=== PATIENT | female | born 1970 | race Caucasian/White ===

== ENCOUNTER → 2017-01-30 | Day surgery (SDC) | payer OTHER ==
[2017-01-30 11:53] VITALS: RESP 16; BMI 31.4
[2017-01-30 13:41] VITALS: BP 115/79; PULSE 76; TEMP 98
--- NOTE | 2017-01-30 14:08 | USB ---
EXAMINATION TYPE: US biopsy breast add'l VAD RT, US biopsy breast VAD RT, MG diagnostic mammo RT wo C AD DATE OF EXAM: 01/30/2017 CLINICAL HISTORY: R92.8 ABNORMAL MAMMOGRAM. TECHNIQUE: Two site ultrasound guided core biopsy of right breast. COMPARISON: Outside breast examination dated 09/19/2016 FINDINGS: Preprocedural imaging was performed as outside images were brought the day of the examination. At the 10:00 position there is a hypoechoic, complex mass measuring 1.6 x 1.4 x 1.8 cm corresponding to the previous abnormality seen at the outside institution. Biopsy was subsequently performed of this mass . (Site A) Additionally, approximately 1.3 cm from the index mass a second 1.6 x 1.0 x 1.0 cm similar appearing hypoechoic complex mass is identified. Recommendations for this mass will be based on the biopsy of t he first mass. Additionally at the 10:00 position, closer to the nipple there is a hypoechoic irregular mass contain ing microcalcifications measuring 1.0 x 0.9 x 1.0 cm. Decision was made to perform an additional biop sy of this mass on 01/30/2017. (Site B) PROCEDURE: The procedure of ultrasound guided core biopsy was explained to the patient. Benefits, al ternatives, and risks were discussed. An informed consent was then obtained. (Site A) The patient was placed in supine positioning for imaging and for the procedure. The overlyi ng skin was prepped and draped in usual sterile fashion. 20 cc of lidocaine was used as anesthetic in to the skin and subcutaneous tissue up to area of concern in the right breast. Under ultrasound guid ance, a 12-gauge vacuum assisted biopsy gun device was used to obtain 4 core samples, as the patient could only tolerate for samples. Following this, a coil biopsy clip was left in lesion. (Site B) The patient was placed in supine positioning for imaging and for the procedure. The overlyi ng skin was prepped and draped in usual sterile fashion. 7 cc of lidocaine was used as anesthetic int o the skin and subcutaneous tissue up to area of concern in the right breast. Under ultrasound rachna nce, a 12-gauge vacuum assisted biopsy gun device was used to obtain 6 core samples. Following this, a ribbon biopsy clip was left in lesion. The patient tolerated the procedure well without any immediate complication. The patient was kept in the radiology department for short stay after the procedure and then discharged home in stable condi tion. Postprocedure mammogram was obtained demonstrating the biopsy markers appropriately placed, without m igration. The coil marker is noted to be adjacent to the mammographic mass on them view, just superio r, but within the mass on the CC view. IMPRESSION: 1. Successful, uncomplicated two site ultrasound guided core biopsy of area of concern in the right b reast, full pathology results to follow. 2. Recommendation for a third mass will be made based on the results of the above biopsies. This mass is noted to be 1.3 cm from site A.
== END ==
LOC: RADUSWWP 11:29
PROVIDERS: ATTEND Surgery
DX: D05.11 Intraductal carcinoma in situ of right breast (principal); C50.911 Malignant neoplasm of unspecified site of right female breast; R92.0 Mammographic microcalcification found on diagnostic imaging of breast
CPT/HCPCS: 19084; 88305; 88341; 88342

== ENCOUNTER → 2017-02-08 | Outpatient (CLI) | payer OTHER ==
--- NOTE | 2017-02-08 10:29 | P.OP ---
Date of Procedure: 02/08/17 Preoperative Diagnosis: Postoperative Diagnosis: Procedure(s) Performed: Colonoscopy without bx Implants: Anesthesia: MAC Pathology: none sent Condition: stable Disposition: PACU Indications for Procedure: Operative Findings: Description of Procedure:
--- NOTE | 2017-02-25 08:20 | BMR ---
EXAMINATION TYPE: MR breast BILAT wo/w con DATE OF EXAM: 02/08/2017 HISTORY: Newly diagnosed right-sided breast cancer. CONTRAST: Multiplanar, multisequence images of the breasts were acquired utilizing 7.5 mL intravenous Gadavist gadolinium contrast. TECHNIQUE: A series of fat and water weighted images in the long and short axis views of both breasts are obtained in conjunction with dynamic contrast MRI with subtraction technique. Three-dimensional and additional postprocessing imaging is created on independent workstation and reviewed during offi cial interpretation of this study. Second opinion was provided by [facility] through [facility] dedicated MRI breast radiologist. 3-D postprocessing was also performed at outside institution and reviewed by thi s person. REFERENCE: Outside bilateral diagnostic breast mammogram September 19, 2016 BI-RADS 0. Outside diagnostic right breast ultrasound September 19, 2016 BI-RADS 4. Ultrasound-guided core biopsy January 30, 2017 FINDINGS: There is heterogeneously dense fibroglandular tissue redemonstrated throughout both breasts . There are innumerable simple appearing cysts scattered throughout both breasts with at least 30 dis tinct cysts present bilaterally. For reference one of the larger cysts in the posterior slightly infe rior lateral aspect of the right breast measures 1.2 x 1.1 cm on image 19 series 301. There is marked fairly symmetric background enhancement making evaluation suboptimal. There is artifa ct from biopsy clip upper outer aspect of right breast seen on image 73 series 601 believed to be cor responding to the more posterior outer clip and lesion. At this level 11:00 position there is 2.0 x 1 .0 by 2.1 cm enhancing lesion with predominantly rapid uptake and washout 9.4 cm distance from nipple corresponding with one of the biopsy-proven neoplasm. Anterior to this artifact from second clip is less well visualized. There is second lesion however id entified 1.2 cm anterior and superior to this on image 28 series 301 near the 12:00 position which be lieves corresponds to ultrasound images. This second lesion measures 2.2 x 1.3 by 1.9 cm and is appro ximately 6 cm from the nipple with heterogeneous postcontrast enhancement and washout. Anterior to the 11:00 position mass, there is an additional irregular mass measuring 2.1 x 1.4 cm als o seen in image number 62. There is a fourth smaller suspicious enhancing 1.1 x 0.8 x 1.0 cm lesion with rim enhancement mediall y 4:00 position anterior to middle depth of right breast at level of nipple with distance from nipple measuring 2.5 cm that warrants follow-up. There is fast initial enhancement by washout making lesion s suspicious. Regarding the left breast: At the 12:00 to 1:00 position, 4-5 cm from the nipple, there is an oval ma ss with noncircumscribed margins measuring 1.1 x 0.8 x 1.4 cm. Internal enhancement is heterogeneous. Kinetic assessment demonstrates fast initial enhancement followed by washout in the delayed portions of the curve. Scattered foci of enhancement are present bilaterally measuring under 5 mm. The chest wall is intact. No suspicious axillary or intramammary adenopathy is seen. No abnormal skin thickening is noted. Incidental note is made of small to moderate size hiatal hernia. IMPRESSION: Four masses are seen in the right breast. 2 of them associated with marker clips, histology unknown. All four masses are suspicious. Mass in the left breast is suspicious. Innumerable bilateral cysts, benign. No lymphadenopathy. Recommendations: Multifocal, Multicentric neoplasm right breast suspected as detailed above. Suspicio us lesion left breast BI-RADS category 6 right breast. Biopsy-proven malignancy. BI-RADS category 4 left breast. Suspicious lesion. Two masses in the right breast are biopsy proven malignancy at the 11:00 and 12:00 position and corre late to the sites recently biopsied. There is an intervening mass between the two known to be maligna nt that is highly suspicious for additional site of disease. The fourth mass in the right breast at the 4:00 position is suspicious and biopsy should be considere d if will change treatment. An MR directed breast US to plan for biopsy can be performed and if mass is not seen by US, then an MR guided biopsy is recommended. This additional biopsy can be considered if it would change surgical management. In the left breast there is a suspicious mass at the 12:00-1:00 position. An MR directed breast US to plan for biopsy can be performed and if mass is not seen by US, then an MR guided biopsy would be ad vised.
== END | disposition home or self-care (01) ==
LOC: RADMRIMAIN 16:24
PROVIDERS: ATTEND Surgery
DX: C50.911 Malignant neoplasm of unspecified site of right female breast (principal)
CPT/HCPCS: 0159T; C8908; A9581; 77059

== ENCOUNTER → 2017-02-26 | Day surgery (SDC) | payer OTHER ==
[2017-02-26 12:05] VITALS: BP 118/83; PULSE 76; RESP 16; TEMP 98; BMI 30.9
--- NOTE | 2017-02-26 13:44 | USB ---
EXAMINATION TYPE: US discontinued breast bx LT DATE OF EXAM: 02/26/2017 HISTORY: Biopsy-proven Right breast carcinoma scheduled for right-sided mastoidectomy. Abnormal MRI d ated 02/08/2017 with suspicious lesion left breast 12:00 position 4 to 5 cm from the nipple. Comparison: MRI 02/08/2017, diagnostic mammography 01/30/2017 The region in question within the left breast was evaluated sonographically. Multiple cysts are noted some of which contain internal echoes. I cannot state with certainty which lesion reflects the suspi cious MRI finding. Therefore biopsy was discontinued. It is recommended that the lesion in question b e sampled with MRI guidance. This was discussed with the patient. IMPRESSION: 1. Suspicious BI-RADS 4 Recommendation: MR guided biopsy of suspicious left breast lesion.
== END ==
LOC: RADUSWWP 11:34
PROVIDERS: ATTEND Surgery
DX: R92.8 Other abnormal and inconclusive findings on diagnostic imaging of breast (principal); C50.411 Malignant neoplasm of upper-outer quadrant of right female breast

== ENCOUNTER → 2017-03-19 | Day surgery (SDC) | payer OTHER ==
[~2017-03-19] MED LIST: ALPRAZolam 0.5 MG TAB PO ONE; HYDROmorphone 0.5 MG/0.5 ML SYRINGE IVP PRN; HYDROmorphone 1 MG/ML 1 ML SYRINGE IM STA; HYDROmorphone 1 MG/ML 1 ML SYRINGE IVP STA
[2017-03-19 10:46] VITALS: RESP 16; TEMP 97.7
[2017-03-19 13:45] VITALS: BP 133/77; PULSE 82
--- NOTE | 2017-03-19 15:19 | BMR ---
EXAMINATION TYPE: MR breast biopsy w/vad LEFT, MG diagnostic mammo LT wo CAD DATE OF EXAM: 03/19/2017 CLINICAL HISTORY: C50.411 breast ca rt breast. Abnormal MRI, suspicious lesions left breast TECHNIQUE: MRI guided core biopsy of left breast at 2 sites with clip placement and follow-up diagnostic left breast mammogram. COMPARISON: MRI bilateral breasts February 08, 2017 FINDINGS: The procedure of MRI guided core biopsy was explained to the patient. Benefits, alternatives, and risks were discussed. An informed consent was then obtained. The patient was placed in prone positioning for imaging and for the procedure. Preprocedure MRI redemonstrates 2 areas of concern, near 12 to 1:00 position and oval 1.0 cm heterogeneous enhancing lesion. There is more irregular posterior area of nonmass enhancement redemonstrated. The overlying skin was prepped and draped in usual sterile fashion. Lidocaine with epinephrine was used as anesthetic into the skin and subcutaneous tissue up to area of concern in the left breast. Under MRI guidance, a 12-gauge vacuum assisted biopsy gun device was used to obtain 4 core samples applesauce right. Following this, a biopsy clip was left in lesion at both sites. The patient tolerated the procedure well without any immediate complication. The patient was kept in the radiology department for short stay after the procedure and then discharged home in stable condition. Postprocedure mammogram shows successful deployment of both clips. IMPRESSION: Successful, uncomplicated MRI guided core biopsy of 2 areas of concern in the left breast, full pathology results to follow. Intermediate index of suspicion noted at time of procedure. Pathology Results: High Risk A. BREAST, LEFT, SITE A ANTERIOR, CORE BIOPSY: INTRADUCTAL PAPILLOMA. BACKGROUND FIBROCYSTIC CHANGES INCLUDING CYSTS, FIBROSIS AND APOCRINE METAPLASIA. B. BREAST, LEFT, SITE B POSTERIOR, CORE BIOPSY: FIBROCYSTIC CHANGES INCLUDING FIBROSIS AND CYSTS. Recommendation Surgical consult of the left breast. (definitive surgical management of the known right DCIS/IDC and papilloma on left breast) [facility]
== END ==
LOC: RADMRIMAIN 10:00
PROVIDERS: ATTEND Surgery
DX: D24.2 Benign neoplasm of left breast (principal); C50.411 Malignant neoplasm of upper-outer quadrant of right female breast; N60.32 Fibrosclerosis of left breast; N60.82 Other benign mammary dysplasias of left breast; R92.8 Other abnormal and inconclusive findings on diagnostic imaging of breast
CPT/HCPCS: 88305; 96374; 19085; 19086; G0206; A4648; J1170; 0159T

== ENCOUNTER 2017-04-16 07:48 | Observation (INO) | payer OTHER ==
[2017-04-11 13:28] VITALS: BMI 30.7
[~2017-04-16 07:48] MED LIST changes: -ALPRAZolam 0.5 MG TAB PO ONE; +DEXAMETHASONE SOD PHOSPHATE 10 MG/ML 1 ML VIAL IV ONE; +HEPARIN SODIUM,PORCINE 5,000 UNIT/ML 1 ML VIAL SQ ONE; -HYDROmorphone 0.5 MG/0.5 ML SYRINGE IVP PRN; -HYDROmorphone 1 MG/ML 1 ML SYRINGE IM STA; -HYDROmorphone 1 MG/ML 1 ML SYRINGE IVP STA; +LIDOCAINE 1% 20 ML VIAL (10MG/ML) FOR IV START INTRADERMA PRN; +ONDANSETRON 4 MG/2 ML VIAL IVP ONE; +Pre Op ABX Message 1 EACH MISC MISCELLANE ONE; +SCOPOLAMINE 1.5MG/72HR PATCH TRANSDERM ONE
--- NOTE | 2017-04-16 07:51 | P.GSHP ---
History of Present Illness H&P Date: 04/16/17 Chief Complaint: Right breast cancer 46yr old premenopausal female presents with nodule / lump in right breast- intermittent pain and swelling . 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 ER+ SC+ her2 janae equivocal by IHC and FISH . Additional lesion identified on breast US which was not biopsied . MRI done - suspicous lesion left breast. S /P MRI guided bx - intraductal papilloma BRCA genetic testing was negative No, nipple discharge, breast distortion. No swellings in the armpit or neck Last mammogram on 09/2016 Last breast US on 09/2016- complex cyst at 10 o clock , BIRAD 4 Prior breast bx - none Menarche at age -15 Age at [address] child -20 Hormonal supplementation-None Family history of breast cancer - None Family history of ovarian cancer -None ROS Additionally reports: Constitutional: No fever, chills or rigors. No weight loss or loss of appetite. HEENT: No difficulty with hearing, vision and swallowing. Lymphatic: No axillary, inguinal and cervical swellings. Endocrine: No thyroid disorders. Denies history of diabetes. Respiratory: No chest pain, shortness of breath, and cough. No hemoptysis. Cardiovascular: No palpitations, irregular HR Gastrointestinal: Denies heartburn. No change in bowel habits. No nausea or vomiting. Genitourinary: No increase in urinary frequency or urgency. No hematuria. Musculoskeletal: No back pain, joint stiffness or pain. Neurologic: No history of seizure disorder and headaches. Psychiatric: Denies depression or anxiety . No suicidal ideation. Hematologic: Denies any abnormal mucosal bleeding or easy bruising. Physical Exam Patient is a 46-year-old female. Breast: Inspection/Palpation: no erythema, tenderness, skin changes, or abnormal secretions and normal nipple appearance, non tender axillary lymph nodes, and mass in the right breast (illdefined 4 cm mass right breast at 9- 10 o clock). Abdomen: Auscultation/Inspection/Palpation: soft, non-distended, normal bowel sounds, and no tenderness. Lungs: Respiratory effort: no dyspnea. Auscultation: breath sounds normal. Cardiovascular: Heart Auscultation: normal S1 and S2 and RRR. Assessment / Plan 1. Right breast cancer - 10: 00 clock 4 cm -illdefined mass 2. Multifocal breast cancer - Right simple mastectomy with reconstruction 3.Right sentinel lymph node bx with blue dye and radioactive tracer with possibility of axillary lymph node dissection if sentinel lymph node is positive for malignancy . Multiple left breast cysts and intraductal papilloma. Needs open biopsy .Patient chose to have bilateral mastectomy with sentinel lymph node bx and possible ALND . The risks, benefits and potential complications discussed including bleeding, infection, sensory impairment along inner arm, lymphedema 4.Medical Oncology consult - Dr Mixon . Repeat Her2 janae on final breast pathology. No indication for neoadjuvant chemotherapy. 5. Plastic surgery consultation with Dr. Reid for immediate reconstruction bilateral breasts 6. MRI B/L breasts reviewed 7. Smoking cessation counselling>3 min. Continues to smoke daily. Higher risk of wound infection, poor wound healing discussed with patient 8. Ancef [id number] 9. Heparin 5000Units SQx1 10. Bilateral SCDs 1. Abnormal findings on diagnostic imaging of breast R92.8: Other abnormal and inconclusive findings on diagnostic imaging of breast 2. Nicotine dependence F17.200: Nicotine dependence, unspecified, uncomplicated STOPPING SMOKING: CARE INSTRUCTIONS 3. Primary malignant neoplasm of upper outer quadrant of female breast C50.411: Malignant neoplasm of upper-outer quadrant of right female breast Past Medical History Past Medical History: Cancer, GERD/Reflux Additional Past Medical History / Comment(s): MIGRAINES, CHRONIC BRONCHITIS, HARRIS BREAST CANCER. History of Any Multi-Drug Resistant Organisms: None Reported Past Surgical History: Breast Surgery Additional Past Surgical History / Comment(s): HARRIS BREAST BX. Past Anesthesia/Blood Transfusion Reactions: No Reported Reaction Additional Past Anesthesia/Blood Transfusion Reaction / Comment(s): NEVER RECEIVED ANESTHESIA. Smoking Status: Current every day smoker - Past Family History Father Family Medical History: Cancer Additional Family Medical History / Comment(s): lung, brain cancer Medications and Allergies Home Medications Medication Instructions Recorded Confirmed Type Albuterol Inhaler [Ventolin Hfa 1 - 2 puff INHALATION Q6HR PRN 02/26/17 History Inhaler] SUMAtriptan SUCCINATE [Imitrex] 25 mg PO DAILY PRN 02/26/17 04/11/17 History Cyclobenzaprine [Flexeril] 5 mg PO BID PRN 04/05/17 04/11/17 History Allergies Allergy/AdvReac Type Severity Reaction Status Date / Time No Known Allergies Allergy Verified 04/11/17 13:23
[2017-04-16] MEDS ORDERED: ALPRAZolam 0.5 MG TAB PO ONE (08:28)
[2017-04-16] MEDS: LACTATED RINGERS 1,000 ML IV SCH ×2 (08:29→20:24)
[2017-04-16] MEDS ORDERED: ceFAZolin 2,000 MG in DEXTROSE/WATER 1 50ML.BAG IVPB STA (10:15)
[2017-04-16] MEDS ORDERED: ceFAZolin IN SWFI 2 GM/20 ML SYRINGE IVP STA (10:16)
[2017-04-16] MEDS ORDERED: PROPOFOL 10 MG/ML 20 ML VIAL IV ONE (10:27)
[2017-04-16] MEDS ORDERED: MIDAZOLAM 2 MG/2 ML VIAL ONE (10:27)
[2017-04-16] MEDS ORDERED: ONDANSETRON 4 MG/2 ML VIAL ONE (10:27)
[2017-04-16] MEDS ORDERED: fentaNYL (PF) 50 MCG/ML 2 ML AMP ONE (10:27)
[2017-04-16] MEDS ORDERED: LIDOCAINE 1% INJ 10MG/ML (20 ML MDV) ONE (10:27)
[2017-04-16] MEDS ORDERED: SUCCINYLCHOLINE CHLORIDE 100 MG/5 ML SYR IV ONE (10:27)
[2017-04-16] MEDS ORDERED: ePHEDrine SULFATE/0.9% NACL/PF 50 MG/5 ML SYRINGE IV ONE (10:27)
[2017-04-16] MEDS ORDERED: METHYLENE BLUE 10 MG/ML (10 ML VIAL) INJ ONE (10:51)
--- NOTE | 2017-04-16 12:19 | NM ---
EXAMINATION TYPE: NM sentinel node injection DATE OF EXAM: 04/16/2017 COMPARISON: NONE HISTORY: Abnormal core biopsy left breast. Malignancy within right breast. TECHNIQUE AND FINDINGS: The procedure for bilateral sentinel node injection was confirmed with the carlos rgeon by Dr. Edge by telephone prior to the procedure. The procedure of sentinel lymph node injec tion was explained to the patient. The benefits, alternatives, and risks were discussed. An informe d consent was then obtained. Overlying skin is cleaned with sterile alcohol. Lidocaine buffered with bicarbonate was used as anes thetic into the skin and subcutaneous tissue surrounding the nipple. Following this, 525 uCi Tc 99m Filtered Sulfur Colloid was injected into 4 equivalent doses at 12, 3, 6, and 9:00 position surroundi ng the bilateral nipples intradermally. The injection sites were massaged by nuclear plant construction worker for 10 minutes after injection. T he patient tolerated the procedure well without any immediate complication. The patient was kept in the radiology department for short stay after the procedure and then taken to surgery for surgical pr ocedure what is presumed intraoperative gamma probe will be used for sentinel lymph node detection. IMPRESSION: 1. Bilateral breast radiotracer injection for sentinel node localization.
[2017-04-16] MEDS ORDERED: LACTATED RINGERS 1,000 ML IV ONE ×2 (13:50→14:07)
[2017-04-16] MEDS ORDERED: ONDANSETRON 4 MG/2 ML VIAL IVP PRN (14:07)
[2017-04-16] MEDS ORDERED: NALOXONE 0.4 MG/ML 1 ML VIAL IV PRN (14:07)
[2017-04-16] MEDS ORDERED: ALBUTEROL NEBULIZED 2.5 MG/3 ML INHALATION PRN (14:21)
--- NOTE | 2017-04-16 14:31 | P.OP ---
Date of Procedure: 04/16/17 Preoperative Diagnosis: Biopsy-proven invasive ductal cancer right breast, ER positive, MT positive, HER -2/janae equivocal Intraductal papilloma left breast Chronic nicotine dependence Postoperative Diagnosis: Same Procedure(s) Performed: Right skin sparing mastectomy Right sentinel lymph node biopsy Left skin sparing mastectomy Left sentinel lymph node biopsy Implants: See Plastic surgeon's note Anesthesia: HEAVEN Surgeon: Claudia Franklin Estimated Blood Loss (ml): 100 Pathology: other Condition: stable Disposition: PACU Indications for Procedure: 46 years old female presents with biopsy-proven right breast cancer. Preoperative workup included a breast MRI which showed multiple areas of concern on the left breast. She underwent MRI guided breast biopsy of the left which showed intraductal papilloma. Operative Findings: Bilateral skin sparing simple mastectomy Bilateral sentinel lymph node biopsy negative for metastasis Description of Procedure: The patient underwent injection of radioisotope in bilateral breasts in radiology department. She was brought to the operating room and placed in supine position with both arms out. 5 mL of methylene blue was injected in the subdermal plane at 4 quadrants around the areola of both breasts and the breasts were massaged for 5 minutes . General anesthesia with endotracheal intubation was performed as per anesthesia team. No muscle relaxants were given. Chlorhexidine was used to prep the bilateral breast and axilla Sterile drapes were applied. A timeout was performed to verify correct patient and correct procedure. Patient was confirmed to receive perioperative IV antibiotics, heparin 5000 units subcutaneous injection for the VTE prophylaxis and bilateral SCDs were placed. A hand-held gamma probe was used to detect signals overlying the left breast. Radioisotope signal obtained in the left axilla. An keyhole incision was made to incorporate the nipple and the areola. Subcutaneous flaps were raised superiorly up to the clavicle medially up to the lateral border of the sternum, laterally up to pectoralis major and inferiorly up to the inframammary crease. The breast tissue was taken off the chest wall including the pectoralis fascia. Hemostasis was checked in the flaps. Reactive isotope signal was identified in the clavicopectoral fascia. This was opened up using Bovie electrocautery and a large blue lymph node with a high count was obtained. This was sent as sentinel lymph node 1. Additional signal noted in the left axilla which was also sent as sentinel lymph node 2. Intraoperative pathology confirmed negative sentinel lymph node 1 and no lymph node in specimen 2. Additional breast tissue was taken from the inferior margin of the breast. Attention was then focused on right breast which has biopsy-proven cancer.A hand -held gamma probe was used to detect signals overlying the right breast. Radioisotope signal obtained in the right axilla. An keyhole incision was made to incorporate the nipple and the areola. Subcutaneous flaps were raised superiorly up to the clavicle medially up to the lateral border of the sternum, laterally up to pectoralis major and inferiorly up to the inframammary crease. The breast tissue was taken off the chest wall including the pectoralis fascia. Hemostasis was checked in the flaps. Reactive isotope signal was identified in the clavicopectoral fascia. This was opened up using Bovie electrocautery and a large blue lymph node with a high count was obtained. This was sent as sentinel lymph node 1. Additional non blue lymph node was identified and sent as sentinel lymph node 2. Intraoperative pathology confirmed negative sentinel lymph node 1 and 2. Additional breast tissue was taken from axilla and sent as axillary tail of right breast. Hemostasis was checked in the flaps. Please see Dr. Reid's note for reconstruction with immediate tissue senior data warehouse architect ADDENDUM REPORT E. BREAST, LEFT, MASTECTOMY: DUCT CARCINOMA IN SITU FOCALLY INVOLVING PAPILLOMA. LOBULAR NEOPLASIA (ATYPICAL LOBULAR NEOPLASIA/LOBULAR CARCINOMA IN SITU). PROLIFERATIVE FIBROCYSTIC CHANGE (STROMAL FIBROSIS, CYST FORMATION, APOCRINE METAPLASIA, COLUMNAR CELL CHANGE, FLAT EPITHELIAL ATYPIA, ADENOSIS AND DUCT HYPERPLASIA). FIBROADENOMA FORMATION, PAPILLOMA, AND FOCAL FEATURES OF SCLEROSING LESION. BIOPSY SITE CHANGE. F. BREAST, RIGHT, MASTECTOMY: INVASIVE DUCTAL CARCINOMA AND DUCT CARCINOMA IN SITU WITH INVOLVEMENT OF PAPILLOMA. PROLIFERATIVE FIBROCYSTIC CHANGE (FIBROSIS, CYST FORMATION, APOCRINE METAPLASIA , ADENOSIS, AND DUCT HYPERPLASIA). FIBROADENOMATOUS HYPERPLASIA/FIBROADENOMA FORMATION. LOBULAR NEOPLASIA (ATYPICAL LOBULAR CARCINOMA/LOBULAR CARCINOMA IN SITU). G. BREAST, AXILLARY TAIL, EXCISION: FIBROCYSTIC CHANGE (STROMAL FIBROSIS, CYST FORMATION, APOCRINE METAPLASIA, FIBROADENOMATOUS HYPERPLASIA AND DUCT HYPERPLASIA). Comment E. SURGICAL PATHOLOGY CANCER CASE SUMMARY - DCIS OF THE BREAST Procedure: Total mastectomy (including nipple and skin). Lymph Node Sampling: [place] lymph node. Specimen Laterality: Left. Size (Extent) of DCIS: Estimated size (extent) of DCIS (greatest dimension using gross and microscopic evaluation): at least 6 mm Histologic Type: Ductal carcinoma in situ. Classified as Tis (DCIS) Nuclear Grade: Grade II (intermediate). Necrosis: Not identified. Margins: Margins uninvolved by DCIS. The exact distance of DCIS from the closest margin cannot be determined given the incidental nature of this finding. Lymph Nodes Total number of nodes examined (sentinel and nonsentinel): 1. Number of sentinel nodes examined: 1. Pathologic Staging Primary Tumor: pTis(DCIS): (Duct carcinoma in situ). Regional Lymph Nodes Modifier: sn (Only sentinel node evaluated). Category: pN0(i-) (No regional lymph node metastasis histologically, negative IHC). Notes: Immunohistochemical stains are performed with appropriate controls and demonstrate reactivity around the areas of DCIS with calponin and p63. The DCIS cells are non-reactive with cytokeratin 5/6. F. SURGICAL PATHOLOGY CANCER CASE SUMMARY - INVASIVE CARCINOMA OF THE BREAST Procedure: Mastectomy. Lymph Node Sampling: [place] lymph nodes. Specimen Laterality: Right. Tumor Size - Size of Largest Invasive Carcinoma: Greatest dimension of largest focus of invasion greater than 1 mm: 32 mm. Histologic Type of Invasive Carcinoma: Invasive mammary carcinoma of no special type (ductal, not otherwise specified). Histologic Grade: Yomi Histologic Score Glandular (Acinar)/Tubular Differentiation: Score 2. Nuclear Pleomorphism: Score 3. Mitotic Rate: Score 1. Overall Grade: Grade II (Score of 6), see notes. Tumor Focality: At least 2, favor 3, see notes Ductal Carcinoma In Situ (DCIS): DCIS is present, negative for extensive intraductal component. Nuclear Grade: Grade II to III (intermediate to high). Necrosis: Present (expansive comedo necrosis). Margins Invasive carcinoma: Margins uninvolved by invasive carcinoma. Distance from closest margin: Invasive carcinoma is within 4 mm of the anterior margin. DCIS: Margins uninvolved by DCIS. Distance from closest margin: DCIS is at least 4 mm from the anterior margin. Lymph Nodes Total Number of Lymph Nodes Examined ([place] and non-sentinel): 2. Number of [place] Lymph Nodes Examined: 2. Lymph Node Involvement Number of lymph nodes with macrometastases (>2mm): 0. Number of lymph nodes with micrometastases (>0.2 mm to 2 mm and/or >200 cells): 2. Number of lymph nodes with isolated tumor cells (less than or equal to 0.2 mm and less than or equal to 200 cells): 0. Size of largest metastatic deposit: 1 mm. Pathologic Staging TNM Descriptors: m (multiple foci of invasive carcinoma). Primary Tumor: pT2 (tumor greater than 20 mm but less than or equal to 50 mm in greatest dimension). Regional Lymph Nodes Modifier: sn (Only sentinel nodes evaluated). Category: pN1mi (micrometastasis). Ancillary Studies: Estrogen receptor, progesterone receptor and Her2/janae studies were previously performed on [id number] and the results can be found in the Reports section of the Hospital's Electronic Medical Record under Pathology as a scanned Pathology Report. Given the equivocal results of the original Her2 studies, blocks F5 and F14 are being sent for Her2 studies by FISH. Given the possibility of a third focus of invasive tumor block F13 is being sent for ER/MT/Her2 studies by IHC. NOTES: In the initially submitted blocks (F 4-6) an area of invasive carcinoma is identified. This focus measured over 32 mm grossly and has an overall grade of II (score of 6). Biopsy site change is identified in this focus. When compared with the diagnostic core biopsies ([id number]), this area is similar to the invasive tumor seen in part A. After examining the initially submitted tissue (F1-12) the right breast specimen is re-examined and in the presumed upper outer quadrant, inferior to the initially identified focus of tumor, is a vague area of nodularity which is present 1.5 cm from the nearest margin. Supervisor Operations sections of this area are submitted in cassette 13. Somewhat inferior to this focus is another vague area of nodularity with associated less firm adjacent fibrosis. The more concerning tissue in this area is 2 cm from the nearest margin and the adjacent less firm tissue is 1.5 cm from the nearest margin. Sections from this area are submitted in cassettes 14-18 with the less dense area submitted in cassette 16. An area of vague nodularity that is not grossly suspicious for carcinoma is submitted in cassette 19. Sections from the first of these described additional areas (F 13) reveals invasive tumor with a pattern similar to that seen in the initial identified focus. However, the nuclei in this area are slightly more atypical and mitotic activity is more readily identified. Though this may represent the edge of the first described mass, this is favored to represent an additional focus of invasive tumor with a glandular score of 2, a nuclear score of 3 and a mitotic rate of 2 for a combined score of 7 and an overall grade of II. If an additional focus of invasion, this area measures over 1.3 cm. Sections of the second of these additional described areas (F 14-18) also reveals invasive carcinoma, which is felt to be an additional focus of invasion. This focus is histologically different with grade 3 nuclei, grade 3 architecture and a mitotic rate of 1 for an overall grade of II (score of 7). This focus measures over 1.1 cm and demonstrates features consistent with previous biopsy. When compared with the diagnostic core biopsies ([id number]), this area is similar to the invasive tumor seen in part B. Given the equivocal results from the previously performed HER2 studies, blocks F5 and F14 are being sent for HER2 studies by FISH. Given the possibility of a third focus of invasive carcinoma, block F13 is also being sent for ER/MT and HER2 studies by IHC. Per the CAP protocol for examination of breast from patients with invasive carcinoma of the breast, features pertaining to a specific cancer (histologic type, grade, size and the results of ER/MT and HER2 studies) should be provided for the largest invasive carcinoma in the case summary and if smaller carcinomas differ in histologic type or grade, this information should be included under additional pathologic findings and additional ancillary tests are recommend for these carcinomas.
--- NOTE | 2017-04-16 15:01 | NM ---
EXAMINATION TYPE: NM sentinel node injection DATE OF EXAM: 04/16/2017 COMPARISON: NONE HISTORY: Abnormal core biopsy left breast. Malignancy within right breast. TECHNIQUE AND FINDINGS: The procedure for bilateral sentinel node injection was confirmed with the carlos rgeon by Dr. Edge by telephone prior to the procedure. The procedure of sentinel lymph node inject ion was explained to the patient. The benefits, alternatives, and risks were discussed. An informed c onsent was then obtained. Overlying skin is cleaned with sterile alcohol. Lidocaine buffered with bicarbonate was used as anest hetic into the skin and subcutaneous tissue surrounding the nipple. Following this, 525 uCi Tc 99m Fi ltered Sulfur Colloid was injected into 4 equivalent doses at 12, 3, 6, and 9:00 position surrounding the bilateral nipples intradermally. The injection sites were massaged by nuclear powerplant mechanic helper for 10 minutes after injection. e patient tolerated the procedure well without any immediate complication. The patient was kept in [facility] radiology department for short stay after the procedure and then taken to surgery for surgical proc edure what is presumed intraoperative gamma probe will be used for sentinel lymph node detection. IMPRESSION: 1. Bilateral breast radiotracer injection for sentinel node localization.
[2017-04-16] MEDS: HYDROmorphone 0.5 MG/0.5 ML SYRINGE IVP PRN ×4 (15:18→15:43)
[2017-04-16] MEDS: HYDROmorphone 1 MG/ML 1 ML SYRINGE IVP PRN ×3 (17:11→23:14)
--- NOTE | 2017-04-16 21:34 | OP ---
OPERATIVE REPORT PREOPERATIVE DIAGNOSES:: 1. Breast cancer. Right breast. 2. Acquired loss of right and left breast. POSTOPERATIVE DIAGNOSES:: 1. Breast cancer. Right breast. 2. Acquired loss, right and left breast. OPERATION:: 1. Immediate reconstruction of left breast following mastectomy with insertion of tissue refrigeration unit repairer with subsequent outpatient expansion. 2. Immediate reconstruction of right breast following mastectomy with insertion of tissue refrigeration unit repairer and subsequent outpatient expansion. 3. Implantation of reconstructive graft for right and left breast reconstruction, 300 cm2. ESTIMATED BLOOD LOSS: 100 mL. OPERATIVE INDICATIONS: The patient is a 46-year-old female, who has been diagnosed with invasive cancer of the right breast. She has elected to undergo right and left mastectomy. She has had multiple areas biopsied on the left breast, but have not been positive for cancer, but she desires prophylactic mastectomy for that side. Additionally, the patient desires reconstruction of the breast. She was seen and evaluated in my office for this purpose and elected upon a tissue refrigeration unit repairer style reconstruction. The patient understands the staged nature of breast reconstructive surgery, the fact that multiple procedures are required and she also understands the potential risks and complications with surgery, including today's procedure that include, but are not limited to, infection, hematoma, seroma, wound healing problems, potential loss of reconstructive sites or loss of expanders and the need for future surgery in addition to scarring and numbness. She has requested I perform the surgery. NARRATIVE:: The patient was seen in the presurgical area. Markings were made, procedure reviewed, all questions answered. She was transported to the operating room, where she was placed in the supine position. Following induction of general endotracheal anesthesia, the patient was prepped and draped in usual fashion. Dr. Franklin proceeded with the left-sided mastectomy. Once that procedure was completed, Dr. Franklin proceeded with the right-sided mastectomy sentinel lymph node procedures. I entered the procedure and initiated the left breast reconstruction. Sponge and needle counts from the procedures were correct. New instruments were obtained. The left mastectomy wound was open with no active bleeding. Irrigation was performed. The pectoralis major muscle was identified where it joined the chest wall laterally. Loose areolar connective tissue divided with cautery here, allowing entry into the potential plane between the pectorals major and minor muscles and bluntly developed. Medial attachment fibers of the pectorals major muscle to the ribs were released with cautery, but not sternal attachments. All inferior attachment of the pectorals major muscle was released with cautery. To obtain sufficient muscle tissue for reconstruction required recruitment of additional muscle groups including the rectus abdominis muscle and fascia anteromedially, external abdominal oblique muscle and fascia anterolaterally and serratus anterior muscle and fascia laterally. Once sufficient size submuscular pocket was obtained, dissection stopped. Hemostasis maintained with cautery. The patient's muscle tissue was attenuated and some have been removed for the purposes of the mastectomy procedure. It was anticipated that reconstructive graft material would be needed at this point. The site was packed open with moist laparotomy sponges. Once the right-sided procedures were completed, I initiated the right-sided reconstruction. Again sponge and needle counts from right-sided procedures were correct. The cavity was irrigated. There was no active bleeding. The pectorals major muscle was identified where it joined the chest wall laterally. Loose areolar connective tissue divided with cautery, allowing entry into the potential plane between the pectoralis major and minor muscles, which was first bluntly developed. Cautery was then used to release medial attachment fibers to the rib structures, but not sternal structure. All inferior attachment of the pectorals major muscle to ribs were released with cautery. Again to obtain sufficient muscle coverage required recruitment of additional muscle tissue: Inferomedially rectus abdominis muscle fascia, inferolaterally external abdominal oblique muscle and fascia, and laterally serratus anterior muscle and fascia were elevated. Once sufficient submuscular plane was created in symmetrical fashion with the right-side, dissection stopped. Irrigation was performed. Hemostasis maintained with cautery. The cavities were sized and adjusted for purposes of symmetry. Again on the both sides, muscle flap tissue was attenuated and portions of muscle and muscle fascia had been removed for the mastectomy purpose. Therefore, SurgiMend was required on both sides. The SurgiMend was obtained from 2 pieces measuring 10 x 15 cm each. Both pieces were thin and fenestrated, revitalized in room temperature saline in preparation for the reconstruction. The expanders were now opened on the field. The right-sided refrigeration unit repairer was opened first. Both expanders were from the [employer], [id number]. The right-sided serial number was [id number]. The device was only handled by surgeon with fresh gloves. All air was extracted,100 mL 0.9 normal saline instilled into the refrigeration unit repairer. It was placed back in a saline bath. One piece of SurgiMend was now inserted in reconstructive cavity, sutured to the inframammary fold muscle cuff and oriented in inferior sling technique. The SurgiMend was inset for this purpose using interrupted short running 3-0 Vicryl sutures. The refrigeration unit repairer was now inserted in the reconstructive cavity, positioning assured under direct vision. The SurgiMend was advanced cephalad and the muscle flap advanced caudad. The SurgiMend was placed deep to the muscle flap and then the muscle flap and SurgiMend were inset, providing complete coverage. A 19 round Velasquez drain was inserted in the surgical field, brought out through a separate stab incision in the right anterior lower chest wall and sutured in place with 2-0 Prolene. Cavity was packed open with moistened saline laparotomy pad. Attention was turned toward the left side. The remaining piece of SurgiMend was sutured to the inframammary fold area muscle cuff created using interrupted short running 3-0 Vicryl. The second refrigeration unit repairer opened on the field, same model number as the first. This time serial #[id number]. Device was only handled by surgeon with fresh gloves, is irrigated with saline. All air is extracted, 100 mL 0.9 normal saline instilled, is inserted in reconstructive cavity and then the SurgiMend advanced in cephalad fashion over the refrigeration unit repairer and the muscle flap advanced in a caudad fashion over the SurgiMend and refrigeration unit repairer and then the muscle flap and SurgiMend were inset using interrupted short running 3-0 Vicryl suture. Complete coverage of the refrigeration unit repairer obtained. Drain was inserted into the into the surgical field, 19 round Velasquez channel drain brought out through a separate stab incision in the left anterior left chest wall, sutured in place with 2-0 Prolene. The mastectomy skin wounds on each side were now reclosed. The mastectomy had been accomplished through a circumareolar incision followed by lateral extension. The lateral extension on each side was directly approximating at a deep dermal level using inverted interrupted 4-0 Monocryl followed by closure of the superficial dermis and epidermis with running 5-0 Prolene. The circumareolar portion of the incision was now closed using a 2-0 Prolene pursestring suture on each side placed in a deep dermal fashion followed by final approximation of the deep dermis using inverted interrupted 4-0 Monocryl finishing the epidermal closure using interrupted jamila. Drains were connected to close bulb suction, patent. Surgical wounds cleansed with saline, dried. Postoperative bandages placed using 4 x 4's, ABD pad secured with tape. The patient was then awakened from anesthetic, extubated and transferred to recovery room in good condition with stable vital signs. There were no complications. KEM / ANTHONYN: [id number] /
[2017-04-16] MEDS: HYDROcodone/APAP 5-325MG 1 EACH TAB PO PRN (23:13)
[2017-04-17] MEDS: HYDROmorphone 1 MG/ML 1 ML SYRINGE IVP PRN ×4 (05:49→20:28)
[2017-04-17] MEDS: HYDROcodone/APAP 5-325MG 1 EACH TAB PO PRN ×4 (07:40→22:15)
[2017-04-17] MEDS: NICOTINE 14MG/24HR PATCH TRANSDERM SCH (07:40)
[2017-04-17] MEDS: LACTATED RINGERS 1,000 ML IV SCH (07:46)
[2017-04-17 08:26] LABS: Basophils % (A) 0 %; CH 31.2; CHCM 32.5; Eosinophils # (A) 0.1 k/uL (0-0.7); Eosinophils % (A) 0 %; HCT 39.8 % (34.0-46.0); HDW 2.14; HGB 12.4 gm/dL (11.4-16.0); Luc % (Auto) 1; Lymphocytes # (A) 2.8 k/uL (1.0-4.8); Lymphocytes % (A) 18 %; MCH 30.1 pg (25.0-35.0); MCHC 31.2 g/dL (31.0-37.0); MCV 96.6 fL (80.0-100.0); Mean Platelet Volume 8.7; Monocytes # (A) 0.9 k/uL (0-1.0); Monocytes % (A) 6 %; Neutrophils # (A) 11.7 k/uL (1.3-7.7); Neutrophils % (A) 75 %; RBC 4.12 m/uL (3.80-5.40); RDW 13.2 % (11.5-15.5); WBC 15.7 k/uL (3.8-10.6); WBC (Perox) 15.84
[2017-04-17 08:45] LABS: ALT 26 U/L (9-52); AST 19 U/L (14-36); Alkaline Phosphatase 54 U/L (38-126); Anion Gap 7 mmol/L; Blood Urea Nitrogen 10 mg/dL (7-17); Calcium 8.9 mg/dL (8.4-10.2); Carbon Dioxide 27 mmol/L (22-30); Chloride 103 mmol/L (98-107); Glucose 102 mg/dL (74-99); Non-African American GFR(MDRD) >60 (>60 ml/min/1.73 sqM); Sodium 137 mmol/L (137-145); Total Bilirubin 0.4 mg/dL (0.2-1.3); Total Protein 6.1 g/dL (6.3-8.2)
--- NOTE | 2017-04-17 14:56 | P.PN ---
<Samara Pal - Last Filed: 04/17/17 14:50> Subjective Progress Note Date: 04/17/17 46-year-old female seen and examined this morning currently sitting up in bed postop bilateral mastectomy done on April 16. [address] right and left moderate amount of serous drainage noted dressings dry to surgical site. Objective - Vital Signs Vital signs: Vital Signs Temp 97.2 F L 04/17/17 07:00 Pulse 75 04/17/17 07:00 Resp 14 04/17/17 07:00 BP 115/73 04/17/17 07:00 Pulse Ox 93 L 04/17/17 07:00 Intake & Output 04/16/17 04/17/17 04/17/17 18:59 06:59 18:59 Intake Total 1300 100 Output Total 600 700 200 Balance 700 -700 -100 Weight 83.915 kg 83.915 kg Intake: IV 1300 100 Lactated Ringers 1,000 ml 100 @ 20 mls/hr IV .Q24H [facility] Rx#:[id number] Output: Drainage 200 Left Chest 90 Right Chest 110 Urine 350 700 Estimated Blood Loss 250 Other: Voiding Method Indwelling Catheter Toilet # Voids 0 - Exam Physical exam 46-year-old female sitting up in bed states pain medication effective for pain control Lungs adequate air movement bilaterally on room air no cough noted Heart S1-S2 audible regular Chest dressings to the bilateral mastectomy sites dry with RK drains in place serous drainage noted Abdomen soft nontender no reports of nausea vomiting not distended bowel tones active Extremities Venodyne's on to the bilateral lower extremities - Labs CBC & Chem 7: 04/17/17 07:39 04/17/17 07:39 Labs: Abnormal Lab Results - Last 24 Hours (Table) 04/17/17 04/17/17 Range/Units 07:39 07:39 WBC 15.7 H (3.8-10.6) k/uL Neutrophils # 11.7 H (1.3-7.7) k/uL Glucose 102 H (74-99) mg/dL Total Protein 6.1 L (6.3-8.2) g/dL Albumin 3.4 L (3.5-5.0) g/dL Assessment and Plan Assessment: Impression Chronic nicotine dependency Biopsy-proven invasive ductal cancer right breast, ER positive, VT positive, HER -2/janae equivocal Intraductal papilloma left breast Status post April 16 right skin sparing mastectomy, left skin sparing mastectomy, right and left sentinel lymph node biopsy Plan Continue postop surgical care Pain control Smoking cessation information provided patient's been advised to stop smoking cigarettes Monitor the RK drainage and record Monitor labs Prepped for probable discharge the next 24 hours DVT and GI prophylaxis The above impression and plan of care have been discussed and directed by signing physician. Samara Pal nurse practitioner acting as scribe for signing physician. <Claudia Franklin - Last Filed: 04/28/17 11:45> Objective - Vital Signs Vital signs: Vital Signs Temp 97.4 F L 04/18/17 07:00 Pulse 77 04/18/17 07:00 Resp 20 04/18/17 07:00 BP 131/82 04/18/17 07:00 Pulse Ox 93 L 04/18/17 07:00 - Labs CBC & Chem 7: 04/18/17 11:15 04/17/17 07:39
[2017-04-18] MEDS: HYDROcodone/APAP 5-325MG 1 EACH TAB PO PRN ×3 (02:03→13:22)
[2017-04-18] MEDS: HYDROmorphone 1 MG/ML 1 ML SYRINGE IVP PRN ×2 (04:29→10:01)
[2017-04-18] MEDS: NICOTINE 14MG/24HR PATCH TRANSDERM SCH (07:04)
[2017-04-18 08:37] VITALS: BP 131/82; PULSE 77; RESP 20; TEMP 97.4
[2017-04-18 12:18] LABS: Basophils # (A) 0.1 k/uL (0-0.2); Basophils % (A) 1 %; CH 29.8; CHCM 30.7; Eosinophils # (A) 0.2 k/uL (0-0.7); Eosinophils % (A) 1 %; HCT 42.5 % (34.0-46.0); HDW 2.09; HGB 13.4 gm/dL (11.4-16.0); Hypochromasia Slight; Luc # (Auto) 0.27; Luc % (Auto) 2; Lymphocytes # (A) 3.6 k/uL (1.0-4.8); Lymphocytes % (A) 23 %; MCH 30.8 pg (25.0-35.0); MCHC 31.5 g/dL (31.0-37.0); MCV 97.6 fL (80.0-100.0); Mean Platelet Volume 8.2; Monocytes % (A) 7 %; Neutrophils # (A) 10.2 k/uL (1.3-7.7); Neutrophils % (A) 67 %; RBC 4.36 m/uL (3.80-5.40); RDW 13.9 % (11.5-15.5); WBC 15.3 k/uL (3.8-10.6); WBC (Perox) 15.49
--- NOTE | 2017-04-18 12:46 | P.DS ---
Providers Date of admission: 04/17/17 01:09 Expected date of discharge: 04/18/17 Attending physician: Claudia Franklin Primary care physician: Stated None Hospital Course: 46yr old premenopausal female presents with nodule / lump in right breast- intermittent pain and swelling . 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 ER+ NE+ her2 janae equivocal by IHC and FISH . Additional lesion identified on breast US which was not biopsied . MRI done - suspicous lesion left breast. S /P MRI guided bx - intraductal papilloma BRCA genetic testing was negative Patient presented on the day of admission to undergo bilateral mastectomies for biopsy-proven right breast cancer Bilateral sentinel lymph node biopsy negative for metastasis immediate tissue expanders for reconstruction per Dr. rivero On the day of admission patient was ambulatory dependent on the unit RK drains were in place patient was given instructions on postoperative care was felt to be appropriate to be discharged home the repeat hemoglobin on the day of discharge was 13.4 preop 12.4 was counseled about stop smoking cigarettes Impression Chronic nicotine dependency Biopsy-proven invasive ductal cancer right breast, ER positive, NE positive, HER -2/janae equivocal Intraductal papilloma left breast Status post April 16 right skin sparing mastectomy, left skin sparing mastectomy, right and left sentinel lymph node biopsy The above impression and plan of care have been discussed and directed by signing physician. Samara Pal nurse practitioner acting as scribe for signing physician. Plan - Discharge Summary Discharge Rx Participant: No New Discharge Prescriptions: New Nicotine 14Mg/24Hr Patch [Habitrol] 1 patch TRANSDERM DAILY #30 patch HYDROcodone/APAP 5-325MG [[place] 5-325] 1 each PO Q4HR PRN #30 tab PRN Reason: Mild Pain Continue Albuterol Inhaler [Ventolin Hfa Inhaler] 1 - 2 puff INHALATION RT-Q6H PRN PRN Reason: Shortness Of Breath SUMAtriptan SUCCINATE [Imitrex] 25 mg PO DAILY PRN PRN Reason: Migraine Headache Cyclobenzaprine [Flexeril] 5 mg PO BID PRN PRN Reason: Migraine Headache Discharge Medication List Albuterol Inhaler [Ventolin Hfa Inhaler] 1 - 2 puff INHALATION RT-Q6H PRN [History] SUMAtriptan SUCCINATE [Imitrex] 25 mg PO DAILY PRN 02/26/17 [History] Cyclobenzaprine [Flexeril] 5 mg PO BID PRN 04/05/17 [History] HYDROcodone/APAP 5-325MG [[place] 5-325] 1 each PO Q4HR PRN #30 tab 04/18/17 [Rx] Nicotine 14Mg/24Hr Patch [Habitrol] 1 patch TRANSDERM DAILY #30 patch 04/18/17 [ Rx] Follow up Appointment(s)/Referral(s): Michael Rivero MD [STAFF PHYSICIAN] - 1 Week (Office currently closed. Patient to call office on Saturday morning and schedule follow-up appt. ) Claudia Franklin MD [STAFF PHYSICIAN] - 04/23/17 1:00 pm [facility], [NON-STAFF] - 1 Week Patient Instructions/Handouts: Hydrocodone/Acetaminophen (By mouth), Nicotine ( Absorbed through the skin), How to Stop Smoking (DC), Dennys-Bill Drain Care ( DC), Mastectomy (DC), Acute Wounds (DC) Activity/Diet/Wound Care/Special Instructions: [facility] [phone] Patient's been advised to stop smoking cigarettes No tub bath Instructions on care of RK drains empty daily and record No lifting over 4 pounds until seen in the follow-up visit Discharge Disposition: HOME WITH HOME HEALTH SERVICES
== END 2017-04-18 14:18 | disposition home health service (06) ==
LOC: OR 07:48 → 5ONC 14:44 → OR 04-17 01:09 → 5ONC 04-17 01:09
PROVIDERS: ADMIT Surgery; ATTEND Surgery
DX: D05.11 Intraductal carcinoma in situ of right breast (principal); F17.200 Nicotine dependence, unspecified, uncomplicated; D24.2 Benign neoplasm of left breast; C77.3 Secondary and unspecified malignant neoplasm of axilla and upper limb lymph nodes; K21.9 Gastro-esophageal reflux disease without esophagitis; G43.909 Migraine, unspecified, not intractable, without status migrainosus; J42 Unspecified chronic bronchitis; Z80.8 Family history of malignant neoplasm of other organs or systems; Z17.0 Estrogen receptor positive status [ER+]
CPT/HCPCS: 81025; 88305; 80053; 85025 ×2; 88342; 88331; 88307; 88341; 38792 ×2; 19303; 19340; 15777; 38525; G0378 ×2; C1763; A9541; J2250; J1644; J1100; J0690; J2405; J2001; Q9968; J3010; J1170 ×4; J0330; J2704; 88309

== ENCOUNTER 2017-06-19 08:26 | Day surgery (SDC) | payer OTHER ==
[~2017-06-19 08:26] MED LIST changes: -DEXAMETHASONE SOD PHOSPHATE 10 MG/ML 1 ML VIAL IV ONE; -HEPARIN SODIUM,PORCINE 5,000 UNIT/ML 1 ML VIAL SQ ONE; -LIDOCAINE 1% 20 ML VIAL (10MG/ML) FOR IV START INTRADERMA PRN; -ONDANSETRON 4 MG/2 ML VIAL IVP ONE; -SCOPOLAMINE 1.5MG/72HR PATCH TRANSDERM ONE
[2017-06-19 08:48] VITALS: TEMP 97.8
[2017-06-19] MEDS ORDERED: LIDOCAINE 1% 20 ML VIAL (10MG/ML) FOR IV START INTRADERMA ONE (09:00)
[2017-06-19] MEDS ORDERED: LACTATED RINGERS 1,000 ML IV ONE (09:00)
[2017-06-19] MEDS ORDERED: fentaNYL (PF) 50 MCG/ML 2 ML AMP IV ONE (09:17)
[2017-06-19] MEDS ORDERED: DEXAMETHASONE SOD PHOS (MDV) 100 MG/10 ML VIAL IV ONE (09:17)
[2017-06-19] MEDS ORDERED: ONDANSETRON 4 MG/2 ML VIAL IVP ONE (09:17)
[2017-06-19] MEDS ORDERED: KETAMINE 10 MG/ML 20 ML VIAL ONE (09:41)
[2017-06-19] MEDS ORDERED: MIDAZOLAM 2 MG/2 ML VIAL ONE (09:41)
[2017-06-19] MEDS ORDERED: ceFAZolin 1,000 MG VIAL ONE (09:41)
[2017-06-19] MEDS ORDERED: PROPOFOL 10 MG/ML 20 ML VIAL IV ONE (09:41)
[2017-06-19] MEDS ORDERED: diphenhydrAMINE 50 MG/ML 1 ML VIAL ONE (09:41)
[2017-06-19] MEDS ORDERED: fentaNYL (PF) 50 MCG/ML 2 ML AMP ONE (09:41)
[2017-06-19] MEDS ORDERED: SODIUM CHLORIDE 0.9% 50 ML with ceFAZolin 2,000 MG IV ONE ×2 (10:05)
[2017-06-19] MEDS ORDERED: BUPIVACAINE-EPI 0.5%-1:200,000 10 ML VIAL SQ ONE ×2 (10:05)
[2017-06-19] MEDS ORDERED: HEPARIN SODIUM,PORCINE 100 UNIT/ML 5 ML VIAL IV ONE (10:24)
[2017-06-19 10:59] VITALS: RESP 18
--- NOTE | 2017-06-19 11:10 | XR ---
EXAMINATION TYPE: XR chest 1V confirm line [facility] DATE OF EXAM: 06/19/2017 COMPARISON: NONE HISTORY: MediPort catheter insertion. TECHNIQUE: Single frontal view of the chest is obtained. FINDINGS: Left-sided Mediport catheter is noted with its distal tip overlying the SVC. There is no ev idence for pneumothorax. The lungs are clear. Postoperative changes of the bilateral breasts. IMPRESSION: MediPort catheter as noted. No evidence for pneumothorax.
--- NOTE | 2017-06-19 11:21 | FL ---
Fluoroscopy HISTORY: Port-A-Cath insertion 9 seconds fluoroscopy time supplied to the referring clinician. 3 intraoperative C-arm images docume nt the procedure. See dictated report from general surgery.
[2017-06-19 11:59] VITALS: PULSE 88
[2017-06-19 12:04] VITALS: BP 117/89
--- NOTE | 2017-06-19 14:17 | P.OP ---
Date of Procedure: 06/19/17 Preoperative Diagnosis: Bilateral breast cancer Status post bilateral mastectomy with reconstruction using tissue night order selector Status post bilateral sentinel lymph node biopsy Status post removal of bilateral tissue expanders secondary to infection Chronic nicotine dependence Obesity BMI 31.8 Postoperative Diagnosis: Same Procedure(s) Performed: Left internal jugular 8-Uzbek Xcela port placement under SonoSite and fluoroscopic guidance Anesthesia: HEAVEN Surgeon: Claudia Franklin Description of Procedure: The patient was brought to the operating room and placed in supine position with both arms tucked. A footboard was placed. Chlorhexidine was used to prep the neck followed by application of sterile drapes and an Ioban dressing . A timeout was performed to verify correct patient and correct procedure. Patient was confirmed to receive perioperative IV antibiotics and VTE prophylaxis. An ultrasound was performed of the left neck to identify the carotid artery and internal jugular vein. The internal jugular vein was compressible and patent . Photodocumentation was made. Local anesthetic was infiltrated to create a field block. Seldinger technique was used and the internal jugular vein was accessed under direct ultrasound guidance. There was good backflow of dark venous blood. The guidewire was inserted and fluoroscopic images obtained to confirm the tip in SVC. The needle was removed followed by insertion of a dilator peel-away sheath. Local anesthetic was infiltrated along the inferior aspect of the left clavicle. A 2.5 cm skin incision was made and dissection was carried up to the pectoralis major muscle. A pocket was created for the port. The catheter tubing was connected to the port using the conector after flushing both the port and the catheter with normal saline. The tunneling device was connected to the end of the catheter and after placement of the port in the subcutaneous pocket the tunneling device was passed from the lower incision to the counter incision in the neck. The catheter was measured at the junction of SVC and right atrium. The inner cannula of the peel-away sheath was removed and catheter was gradually inserted. The peel-away sheath was gradually removed. Fluoroscopic image confirmed the tip of the catheter at the junction of SVC and right atrium. There was no kink, fold or torsion of the catheter and the port. The Gilbert needle was used to access the port and easy backflow was obtained. This was flushed with 10 mL of normal saline and 10 mL of Hep-Lock was inserted. The skin incision was closed in 3 layers using 3-0 Vicryl interrupted stitches and a running suture of 4-0 Monocryl. Counter incision in the neck was also closed using 3-0 Vicryl followed by 4-0 Monocryl. Dermabond skin glue was applied followed by Telfa and Tegaderm dressing. The sponge, instrument and needle count were correctx 2 Patient tolerated the procedure well and was taken to post anesthesia care unit in stable condition Final chest x-ray showed the tip of the catheter in SVC and no pneumothorax. Total fluoroscopic time was 9 seconds
== END 2017-06-19 12:20 | disposition home or self-care (01) ==
LOC: OR 08:26
PROVIDERS: ATTEND Surgery
DX: C50.911 Malignant neoplasm of unspecified site of right female breast (principal); C50.912 Malignant neoplasm of unspecified site of left female breast; Z17.0 Estrogen receptor positive status [ER+]; T85.79XA Infection and inflammatory reaction due to other internal prosthetic devices, implants and grafts, initial encounter; Z90.13 Acquired absence of bilateral breasts and nipples; F17.210 Nicotine dependence, cigarettes, uncomplicated; Z80.6 Family history of leukemia; E66.9 Obesity, unspecified; Z68.31 Body mass index [BMI] 31.0-31.9, adult; Z79.899 Other long term (current) drug therapy
CPT/HCPCS: 36561; 76937; 81025; 77001; C1788; J2250; J1200; J1642; J2405; J0690 ×2; J3010; J1100; J2704

== ENCOUNTER 2017-07-30 15:23 | Emergency (ER) | payer OTHER ==
[2017-07-30] MEDS ORDERED: IPRATROPIUM-ALBUTEROL 3 ML NEB INHALATION STA (15:47)
[2017-07-30] MEDS ORDERED: SODIUM CHLORIDE 0.9% 1,000 ML IV STA (15:47)
[2017-07-30] MEDS ORDERED: PROMETHAZ-COD 6.25-10 MG/5 ML 5 ML CUP PO STA (15:49)
--- NOTE | 2017-07-30 15:50 | ED ---
URI HPI - General Chief Complaint: Upper Respiratory Infection Stated Complaint: cough/chest pressure-cancer patient Time Seen by Provider: 07/30/17 15:39 Source: patient, RN notes reviewed, old records reviewed Mode of arrival: ambulatory Limitations: no limitations - History of Present Illness Initial Comments: This is a 46-year-old female with severe coughing episodes for the past 2 days. She reports that she has history of breast cancer is undergoing chemotherapy. Last chemotherapy was 2 weeks ago. She states it's a nonproductive cough and will not stop. She reports that she has some chest congestion and pressure as well. Patient states that she has no abdominal pain, change vomiting or changes in bowel habits. - Related Data Home Medications Medication Instructions Recorded Confirmed Albuterol Inhaler [Ventolin Hfa 1 - 2 puff INHALATION RT-Q6H PRN 02/26/17 Inhaler] HYDROcodone/APAP 5-325MG [[place] 1 tab PO Q6H PRN 05/15/17 07/30/17 5-325] Clotrimazole Tashi [Mycelex 10 mg MUCOUS MEM 5XD 07/30/17 07/30/17 Tashi] Dexamethasone [Hexadrol] 8 mg PO BID PRN 07/30/17 07/30/17 Omeprazole 40 mg PO BID 07/30/17 07/30/17 Previous Rx's Medication Instructions Recorded Oseltamivir [Tamiflu] 75 mg PO BID #10 cap 07/30/17 Promethaz-Cod 6.25-10 mg/5 ml 5 ml PO Q4HR PRN #120 ml 07/30/17 [Phenergan with Codeine] Allergies Allergy/AdvReac Type Severity Reaction Status Date / Time No Known Allergies Allergy Verified 07/30/17 15:56 Review of Systems ROS Statement: Those systems with pertinent positive or pertinent negative responses have been documented in the HPI. ROS Other: All systems not noted in ROS Statement are negative. Past Medical History Past Medical History: Cancer, GERD/Reflux Additional Past Medical History / Comment(s): MIGRAINES, CHRONIC BRONCHITIS, HARRIS BREAST CANCER. History of Any Multi-Drug Resistant Organisms: None Reported Past Surgical History: Breast Surgery Additional Past Surgical History / Comment(s): HARRIS BREAST BX. MASTECTOMY AND RIGHT SIDE LYMPH NODE DISSECTION Past Anesthesia/Blood Transfusion Reactions: No Reported Reaction Additional Past Anesthesia/Blood Transfusion Reaction / Comment(s): NEVER RECEIVED ANESTHESIA. Past Psychological History: Anxiety, Depression Smoking Status: Current some day smoker Past Alcohol Use History: Rare Past Drug Use History: Marijuana - Past Family History Father Family Medical History: Cancer Additional Family Medical History / Comment(s): lung, brain cancer General Exam - General Exam Comments Initial Comments: 46-year-old female. Limitations: no limitations General appearance: alert, in no apparent distress Head exam: Present: atraumatic, normocephalic, normal inspection Eye exam: Present: normal appearance, PERRL, EOMI. Absent: scleral icterus, conjunctival injection, periorbital swelling ENT exam: Present: normal exam, mucous membranes moist Neck exam: Present: normal inspection. Absent: tenderness, meningismus, lymphadenopathy Respiratory exam: Present: normal lung sounds bilaterally. Absent: respiratory distress, wheezes, rales, rhonchi, stridor Cardiovascular Exam: Present: regular rate, normal rhythm, normal heart sounds, other (Patient has significant coughing fits. Nonproductive cough.). Absent: systolic murmur, diastolic murmur, rubs, gallop, clicks GI/Abdominal exam: Present: soft, normal bowel sounds. Absent: distended, tenderness, guarding, rebound, rigid Course Vital Signs 07/30/17 07/30/17 07/30/17 15:27 15:59 16:07 Temperature 98.4 F Pulse Rate 120 H 120 H Respiratory 18 20 Rate Blood Pressure 127/91 O2 Sat by Pulse 96 Oximetry 07/30/17 07/30/17 16:12 19:17 Temperature 99 F Pulse Rate 120 H 105 H Respiratory 14 Rate Blood Pressure 121/61 O2 Sat by Pulse 95 Oximetry Medical Decision Making - Medical Decision Making 46-year-old female presents with cough and congestion for 2 days. Patient has positive influenza testing. - Lab Data Result diagrams: 07/30/17 16:07 07/30/17 16:07 Lab Results 07/30/17 07/30/17 07/30/17 Range/Units 16:00 16:07 16:07 WBC 10.7 H (3.8-10.6) k/uL RBC 4.41 (3.80-5.40) m/uL Hgb 13.5 (11.4-16.0) gm/dL Hct 40.2 (34.0-46.0) % MCV 91.2 (80.0-100.0) fL MCH 30.5 (25.0-35.0) pg MCHC 33.5 (31.0-37.0) g/dL RDW 14.6 (11.5-15.5) % Plt Count 192 (150-450) k/uL Neutrophils % 84 % Lymphocytes % 10 % Monocytes % 4 % Eosinophils % 0 % Basophils % 0 % Neutrophils # 8.9 H (1.3-7.7) k/uL Lymphocytes # 1.0 (1.0-4.8) k/uL Monocytes # 0.4 (0-1.0) k/uL Eosinophils # 0.0 (0-0.7) k/uL Basophils # 0.1 (0-0.2) k/uL PT (9.0-12.0) sec INR (<1.2) APTT (22.0-30.0) sec D-Dimer (<0.60) mg/L FEU Sodium (137-145) mmol/L Potassium (3.5-5.1) mmol/L Chloride (98-107) mmol/L Carbon Dioxide (22-30) mmol/L Anion Gap mmol/L BUN (7-17) mg/dL Creatinine (0.52-1.04) mg/dL Est GFR (MDRD) Af Amer (>60 ml/min/1.73 sqM) Est GFR (MDRD) Non-Af (>60 ml/min/1.73 sqM) Glucose (74-99) mg/dL Calcium (8.4-10.2) mg/dL Magnesium (1.6-2.3) mg/dL Total Bilirubin (0.2-1.3) mg/dL AST (14-36) U/L ALT (9-52) U/L Alkaline Phosphatase (38-126) U/L Total Creatine Kinase 48 (30-135) U/L CK-MB (CK-2) 0.4 (0.0-2.4) ng/mL CK-MB (CK-2) Rel Index 0.8 Troponin I <0.012 (0.000-0.034) ng/mL Total Protein (6.3-8.2) g/dL Albumin (3.5-5.0) g/dL Influenza Type A RNA Detected H (Not Detectd) Influenza Type B (PCR) Not Detected (Not Detectd) 07/30/17 07/30/17 Range/Units 16:07 16:07 WBC (3.8-10.6) k/uL RBC (3.80-5.40) m/uL Hgb (11.4-16.0) gm/dL Hct (34.0-46.0) % MCV (80.0-100.0) fL MCH (25.0-35.0) pg MCHC (31.0-37.0) g/dL RDW (11.5-15.5) % Plt Count (150-450) k/uL Neutrophils % % Lymphocytes % % Monocytes % % Eosinophils % % Basophils % % Neutrophils # (1.3-7.7) k/uL Lymphocytes # (1.0-4.8) k/uL Monocytes # (0-1.0) k/uL Eosinophils # (0-0.7) k/uL Basophils # (0-0.2) k/uL PT 9.8 (9.0-12.0) sec INR 1.0 (<1.2) APTT 23.1 (22.0-30.0) sec D-Dimer 0.98 H (<0.60) mg/L FEU Sodium 139 (137-145) mmol/L Potassium 3.7 (3.5-5.1) mmol/L Chloride 101 (98-107) mmol/L Carbon Dioxide 24 (22-30) mmol/L Anion Gap 14 mmol/L BUN 4 L (7-17) mg/dL Creatinine 0.56 (0.52-1.04) mg/dL Est GFR (MDRD) Af Amer >60 (>60 ml/min/1.73 sqM) Est GFR (MDRD) Non-Af >60 (>60 ml/min/1.73 sqM) Glucose 117 H (74-99) mg/dL Calcium 9.8 (8.4-10.2) mg/dL Magnesium 1.5 L (1.6-2.3) mg/dL Total Bilirubin 0.3 (0.2-1.3) mg/dL AST 22 (14-36) U/L ALT 20 (9-52) U/L Alkaline Phosphatase 99 (38-126) U/L Total Creatine Kinase (30-135) U/L CK-MB (CK-2) (0.0-2.4) ng/mL CK-MB (CK-2) Rel Index Troponin I (0.000-0.034) ng/mL Total Protein 6.8 (6.3-8.2) g/dL Albumin 4.1 (3.5-5.0) g/dL Influenza Type A RNA (Not Detectd) Influenza Type B (PCR) (Not Detectd) - Radiology Data Radiology results: report reviewed Chest x-rays negative for any acute process. No evidence pulmonary embolism. Emphysema noted. Lungs are grossly clear her in critical mass or nodule identified. No pleural effusion or normal leg seen. Small hiatal hernia present. There is no greater than 1 cm hilar and mediastinal lymph nodes. No pericardial effusion seen. Disposition Clinical Impression: Influenza A Disposition: HOME SELF-CARE Condition: Good Instructions: Influenza (ED) Additional Instructions: Patient advised to take the medication as prescribed. Follow-up promptly with primary care provider. Return to the emergency department if any alarming signs or symptoms occur. Prescriptions: Oseltamivir [Tamiflu] 75 mg PO BID #10 cap Promethaz-Cod 6.25-10 mg/5 ml [Phenergan with Codeine] 5 ml PO Q4HR PRN #120 ml PRN Reason: Cough Referrals: None,Stated [Primary Care Provider] - 1-2 days Time of Disposition: 19:38
[2017-07-30 16:16] LABS: Basophils # (A) 0.1 k/uL (0-0.2); Basophils % (A) 0 %; Eosinophils % (A) 0 %; HCT 40.2 % (34.0-46.0); HGB 13.5 gm/dL (11.4-16.0); Lymphocytes % (A) 10 %; MCH 30.5 pg (25.0-35.0); MCHC 33.5 g/dL (31.0-37.0); MCV 91.2 fL (80.0-100.0); Mean Platelet Volume 7.7; Monocytes # (A) 0.4 k/uL (0-1.0); Monocytes % (A) 4 %; Neutrophils # (A) 8.9 k/uL (1.3-7.7); Neutrophils % (A) 84 %; Platelet Count 192 k/uL (150-450); RBC 4.41 m/uL (3.80-5.40); RDW 14.6 % (11.5-15.5); WBC 10.7 k/uL (3.8-10.6)
[2017-07-30 16:22] LABS: Anion Gap 14 mmol/L; Blood Urea Nitrogen 4 mg/dL (7-17); Carbon Dioxide 24 mmol/L (22-30); Chloride 101 mmol/L (98-107); Glucose 117 mg/dL (74-99); Potassium 3.7 mmol/L (3.5-5.1); Sodium 139 mmol/L (137-145)
[2017-07-30 16:23] LABS: ALT 20 U/L (9-52); AST 22 U/L (14-36); Albumin 4.1 g/dL (3.5-5.0); Alkaline Phosphatase 99 U/L (38-126); Calcium 9.8 mg/dL (8.4-10.2); Magnesium 1.5 mg/dL (1.6-2.3); Total Bilirubin 0.3 mg/dL (0.2-1.3); Total Protein 6.8 g/dL (6.3-8.2)
[2017-07-30 16:27] LABS: D-Dimer 0.98 mg/L FEU (<0.60); Partial Thromboplastin Time 23.1 sec (22.0-30.0); Prothrombin Time 9.8 sec (9.0-12.0)
[2017-07-30] MEDS ORDERED: KETOROLAC 30 MG/ML 1 ML VIAL IVP STA (16:39)
--- NOTE | 2017-07-30 16:54 | XR ---
EXAMINATION TYPE: XR chest 2V DATE OF EXAM: 07/30/2017 COMPARISON: 05/15/2017 HISTORY: Cough and chest pressure TECHNIQUE: Frontal and lateral views of the chest are obtained. FINDINGS: There is no focal air space opacity, pleural effusion, or pneumothorax seen. There is a l eft-sided Mediport terminating in the high superior vena cava above the cavoatrial junction, unchange d from the prior exam. The cardiac silhouette size is within normal limits. The osseous structures are intact. IMPRESSION: No acute cardiopulmonary process.
[2017-07-30] MEDS ORDERED: ACETAMINOPHEN TAB 500 MG TAB PO STA (17:51)
[2017-07-30] MEDS ORDERED: RX INFO: IV CONTRAST WAS GIVEN 1 EACH MISC MISCELLANE PRN (17:51)
[2017-07-30 17:55] LABS: Creatine Kinase 48 U/L (30-135)
[2017-07-30 18:08] LABS: Creatine Kinase MB 0.4 ng/mL (0.0-2.4); Troponin I <0.012 ng/mL (0.000-0.034)
[2017-07-30 19:18] VITALS: BP 121/61; PULSE 105; RESP 14; TEMP 99
--- NOTE | 2017-07-30 19:19 | CT ---
EXAMINATION TYPE: CT chest angio for PE DATE OF EXAM: 07/30/2017 COMPARISON: Chest x-ray same date HISTORY: Patient complains of chest pain. Patient positive for influenza A. CT DLP: 214.4 mGycm Automated exposure control for dose reduction was used. CONTRAST: CT Chest for pulmonary embolism performed with with IV Contrast, patient injected with 100 mL of Omni paque 350. FINDINGS: There is a small hiatal hernia present. Postop changes are noted to the chest wall status p ost bilateral mastectomies. LUNGS: The lungs are grossly clear, there is no concerning parenchymal mass or nodule identified. T here is no pleural effusion or pneumothorax seen. There is centrilobular emphysematous change present especially in the upper lobes. The tracheobronchial tree is patent. MEDIASTINUM: There is satisfactory enhancement of the pulmonary artery and its branches, there is no CT evidence for pulmonary embolism. There are no greater than 1 cm hilar or mediastinal lymph nodes. No pericardial effusion is seen. AORTA: No additional significant abnormality is seen. OTHER: No additional significant abnormality is seen. IMPRESSION: No evident pulmonary embolism. Emphysema. Additional findings above.
[2017-07-30] MEDS ORDERED: OSELTAMIVIR 75 MG CAP PO STA (19:45)
== END 2017-07-30 20:18 | disposition home or self-care (01) ==
LOC: EC 15:23
DX: J10.1 Influenza due to other identified influenza virus with other respiratory manifestations (principal); J43.9 Emphysema, unspecified; K44.9 Diaphragmatic hernia without obstruction or gangrene; J42 Unspecified chronic bronchitis; K21.9 Gastro-esophageal reflux disease without esophagitis; F17.200 Nicotine dependence, unspecified, uncomplicated; Z79.899 Other long term (current) drug therapy; Z92.21 Personal history of antineoplastic chemotherapy; Z85.3 Personal history of malignant neoplasm of breast; Z80.1 Family history of malignant neoplasm of trachea, bronchus and lung; Z90.13 Acquired absence of bilateral breasts and nipples
CPT/HCPCS: 36415; 94640; 85379; 80053; 82550; 82553; 83735; 84484; 85025; 85610; 85730; 87040; 87502; 71046; 71275; 99285; 96374; 96361; Q9967; J1885

== ENCOUNTER → 2017-09-05 | Outpatient (CLI) | payer OTHER ==
--- NOTE | 2017-09-05 15:48 | XR ---
EXAMINATION TYPE: XR chest 2V DATE OF EXAM: 09/05/2017 COMPARISON: Chest x-ray and CT 07/30/2017 HISTORY: Breast cancer, M 25.512 TECHNIQUE: Frontal and lateral views of the chest are obtained. FINDINGS: There is no focal air space opacity, pleural effusion, or pneumothorax seen. The cardiac silhouette size is within normal limits. Left jugular central venous catheter is present with the d istal tip overlying the superior vena cava, port is in the left pectoral region. There are overlying zippers. There is a spinal curvature. Mild depression of superior endplate and upper lumbar spine lev el is again seen. Prominent lung volumes compatible with underlying emphysema. The osseous structures are intact. IMPRESSION: No acute cardiopulmonary process.
== END | disposition home or self-care (01) ==
LOC: RADXRMAIN 13:47
PROVIDERS: ATTEND Nurse Practitioner Adult Health
DX: C50.411 Malignant neoplasm of upper-outer quadrant of right female breast (principal); M25.512 Pain in left shoulder; R19.7 Diarrhea, unspecified; Z71.3 Dietary counseling and surveillance
CPT/HCPCS: 71046

== ENCOUNTER → 2017-09-24 | Outpatient (CLI) | payer OTHER ==
--- NOTE | 2017-09-25 11:13 | ECHOF ---
Referral Reason:C50.411 Breast cancer / Z01.818 Pre-chemo MEASUREMENTS -------- HEIGHT: 162.6 cm WEIGHT: 79.4 kg BP: IVSd: 0.9 cm (0.6 - 1.1) LVIDd: 4.3 cm (3.9 - 5.3) LVPWd: 1.1 cm (0.6 - 1.1) IVSs: 1.4 cm LVIDs: 3.1 cm LVPWs: 1.3 cm LAESV Index (A-L): 8.80 ml/m Ao Diam: 3.4 cm (2.0 - 3.7) AV Cusp: 1.8 cm (1.5 - 2.6) LA Diam: 1.6 cm (2.7 - 3.8) MV E Gene: 0.65 m/s MV DecT: 199 ms MV A Gene: 0.81 m/s MV E/A Ratio: 0.80 RAP: 5.00 mmHg RVSP: 26.47 mmHg FINDINGS -------- Sinus rhythm. This was a technically adequate study. The left ventricular size is normal. Left ventricular wall thickness is normal. Overall left vent ricular systolic function is normal with, an EF between 55 - 60 %. The right ventricle is normal in size and function. Normal LA size by volume 22+/-6 ml/m2. The right atrium is normal in size. Aortic valve is trileaflet and is mildly thickened. There is no evidence of aortic regurgitation. There is no evidence of aortic stenosis. The mitral valve leaflets are mildly thickened. There is trace to mild mitral regurgitation. Trace tricuspid regurgitation present. Right ventricular systolic pressure is normal at < 35 mmHg. There is no evidence of pulmonary hypertension. The pulmonic valve is normal. The aortic root size is normal. Normal inferior vena cava with normal inspiratory collapse consistent with estimated right atrial pre ssure of 5 mmHg. There is no pericardial effusion. CONCLUSIONS -------- 1. Sinus rhythm. 2. This was a technically adequate study. 3. The left ventricular size is normal. 4. Left ventricular wall thickness is normal. 5. Overall left ventricular systolic function is normal with, an EF between 55 - 60 %. 6. Normal LA size by volume 22+/-6 ml/m2. 7. Aortic valve is trileaflet and is mildly thickened. 8. The mitral valve leaflets are mildly thickened. 9. There is trace to mild mitral regurgitation. 10. Trace tricuspid regurgitation present. 11. Right ventricular systolic pressure is normal at < 35 mmHg. 12. There is no evidence of pulmonary hypertension. 13. The aortic root size is normal. 14. There is no pericardial effusion. RUG DRYING MACHINE OPERATOR: Juan C Ricardo RDCS
== END | disposition home or self-care (01) ==
LOC: RADECHMAIN 14:59
PROVIDERS: ATTEND Internal Medicine Hematology & Oncology
DX: Z01.818 Encounter for other preprocedural examination (principal); C50.411 Malignant neoplasm of upper-outer quadrant of right female breast
CPT/HCPCS: 93306

== ENCOUNTER → 2017-12-10 | Outpatient (CLI) | payer OTHER ==
--- NOTE | 2017-12-12 10:33 | ECHOF ---
Referral Reason:C50.411; Z01.818 MEASUREMENTS -------- HEIGHT: 165.1 cm WEIGHT: 73.5 kg BP: 124/68 RVIDd: 3.2 cm (< 3.3) IVSd: 1.0 cm (0.6 - 1.1) LVIDd: 4.2 cm (3.9 - 5.3) LVPWd: 1.0 cm (0.6 - 1.1) IVSs: 1.1 cm LVIDs: 2.9 cm LVPWs: 1.1 cm LAESV Index (A-L): 14.12 ml/m Ao Diam: 3.1 cm (2.0 - 3.7) AV Cusp: 2.1 cm (1.5 - 2.6) LA Diam: 2.1 cm (2.7 - 3.8) MV E Gene: 0.90 m/s MV DecT: 162 ms MV A Gene: 0.74 m/s MV E/A Ratio: 1.23 RAP: 5.00 mmHg RVSP: 30.83 mmHg FINDINGS -------- Sinus rhythm. This was a technically good study. The left ventricular size is normal. Left ventricular wall thickness is normal. Overall left vent ricular systolic function is normal with, an EF between 55 - 60 %. The right ventricle is mildly enlarged. Normal LA size by volume 22+/-6 ml/m2. RA appears enlarged. There is mild aortic valve sclerosis. There is no evidence of aortic regurgitation. There is no e vidence of aortic stenosis. The mitral valve leaflets are mildly thickened. There is trace to mild mitral regurgitation. Trace tricuspid regurgitation present. Right ventricular systolic pressure is normal at < 35 mmHg. There is no evidence of pulmonary hypertension. The pulmonic valve was not well visualized. The aortic root size is normal. Normal inferior vena cava with normal inspiratory collapse consistent with estimated right atrial pre ssure of 5 mmHg. There is no pericardial effusion. CONCLUSIONS -------- 1. Sinus rhythm. 2. This was a technically good study. 3. The left ventricular size is normal. 4. Left ventricular wall thickness is normal. 5. Overall left ventricular systolic function is normal with, an EF between 55 - 60 %. 6. The right ventricle is mildly enlarged. 7. Normal LA size by volume 22+/-6 ml/m2. 8. RA appears enlarged. 9. There is mild aortic valve sclerosis. 10. The mitral valve leaflets are mildly thickened. 11. There is trace to mild mitral regurgitation. 12. Trace tricuspid regurgitation present. 13. Right ventricular systolic pressure is normal at < 35 mmHg. 14. There is no evidence of pulmonary hypertension. 15. The pulmonic valve was not well visualized. 16. The aortic root size is normal. 17. There is no pericardial effusion. LACE MENDER: Juan C Knowles RDCS
== END | disposition home or self-care (01) ==
LOC: RADECHMAIN 13:04
PROVIDERS: ATTEND Internal Medicine Hematology & Oncology
DX: I34.0 Nonrheumatic mitral (valve) insufficiency (principal); I35.8 Other nonrheumatic aortic valve disorders; C50.411 Malignant neoplasm of upper-outer quadrant of right female breast
CPT/HCPCS: 93306

== ENCOUNTER → 2018-03-04 | Outpatient (CLI) | payer OTHER ==
--- NOTE | 2018-03-04 15:30 | US ---
EXAMINATION TYPE: US venous doppler duplex UE RT DATE OF EXAM: 03/04/2018 COMPARISON: NONE CLINICAL HISTORY: R22.31 Swelling RT UPPER LIMB. Lymph nodes removed due to breast ca 1 year ago in r ight axilla, bilateral mastectomy, pain and swelling in right arm/neck SIDE PERFORMED: Right Grayscale, color doppler, spectral doppler imaging performed of the deep veins of the upper extremiti es. Right Arm: Appears negative for DVT Visualized portions of the right internal jugular vein, subclavian vein, brachial veins, axillary vei n, cephalic vein, basilic vein, radial veins, and ulnar veins show compressibility, no abnormal lumin al echoes. Results to Ame at office @ 3:20 IMPRESSION: No evident deep venous thrombosis within the veins of the right upper extremity.
== END | disposition home or self-care (01) ==
LOC: RADUSWWP 14:42
PROVIDERS: ATTEND Internal Medicine Hematology & Oncology
DX: R22.31 Localized swelling, mass and lump, right upper limb (principal)

== ENCOUNTER → 2018-03-18 | Outpatient (CLI) | payer OTHER ==
--- NOTE | 2018-03-18 12:47 | ECHOF ---
Referral Reason:C50.411 breast CA, Z01.810 chemo exposure MEASUREMENTS -------- HEIGHT: 162.6 cm WEIGHT: 77.1 kg BP: IVSd: 1.2 cm (0.6 - 1.1) LVIDd: 3.8 cm (3.9 - 5.3) LVPWd: 1.2 cm (0.6 - 1.1) IVSs: 1.5 cm LVIDs: 3.1 cm LVPWs: 1.4 cm LAESV Index (A-L): 16.91 ml/m Ao Diam: 3.3 cm (2.0 - 3.7) AV Cusp: 2.2 cm (1.5 - 2.6) LA Diam: 2.7 cm (2.7 - 3.8) MV E Gene: 0.85 m/s MV DecT: 176 ms MV A Gene: 0.71 m/s MV E/A Ratio: 1.20 RAP: 5.00 mmHg RVSP: 36.25 mmHg FINDINGS -------- Sinus rhythm. This was a technically good study. The left ventricular size is normal. There is mild concentric left ventricular hypertrophy. There is mild global hypokinesis of LV . Overall left ventricular systolic function is low-normal with, an EF between 50 - 55 %. The right ventricle is normal in size and function. Normal LA size by volume 22+/-6 ml/m2. RA appears enlarged. Aortic valve is trileaflet and is mildly thickened. There is no evidence of aortic regurgitation. There is no evidence of aortic stenosis. The mitral valve leaflets are mildly thickened. There is trace to mild mitral regurgitation. No regurgitation noted There is borderline pulmonary hypertension. The right ventricular systolic pressure, as measured by Doppler, is 36.25mmHg. Trace/mild (physiologic) pulmonic regurgitation. The aortic root size is normal. Normal inferior vena cava with normal inspiratory collapse consistent with estimated right atrial pre ssure of 5 mmHg. There is no pericardial effusion. CONCLUSIONS -------- 1. Sinus rhythm. 2. This was a technically good study. 3. The left ventricular size is normal. 4. There is mild concentric left ventricular hypertrophy. 5. There is mild global hypokinesis of LV . 6. Normal LA size by volume 22+/-6 ml/m2. 7. RA appears enlarged. 8. Aortic valve is trileaflet and is mildly thickened. 9. The mitral valve leaflets are mildly thickened. 10. There is trace to mild mitral regurgitation. 11. No regurgitation noted 12. There is borderline pulmonary hypertension. 13. The right ventricular systolic pressure, as measured by Doppler, is 36.25mmHg. 14. Trace/mild (physiologic) pulmonic regurgitation. 15. The aortic root size is normal. 16. There is no pericardial effusion. OPERATOR ASSISTANT I CEMENTING: Juan C Knowles RDCS
== END | disposition home or self-care (01) ==
LOC: RADECHMAIN 08:29
PROVIDERS: ATTEND Internal Medicine Hematology & Oncology
DX: C50.411 Malignant neoplasm of upper-outer quadrant of right female breast (principal); I08.0 Rheumatic disorders of both mitral and aortic valves; I11.9 Hypertensive heart disease without heart failure
CPT/HCPCS: 93306

== ENCOUNTER → 2018-04-15 | Outpatient (CLI) | payer OTHER ==
[~2018-04-15] MED LIST changes: +LEUPROLIDE ACET 11.25MG SYRGKIT IM ONE; -Pre Op ABX Message 1 EACH MISC MISCELLANE ONE
[2018-04-15 12:41] VITALS: BP 117/73; PULSE 94; RESP 16; TEMP 97.9
== END | disposition home or self-care (01) ==
LOC: PROCWHC3 12:12
PROVIDERS: ATTEND Internal Medicine Hematology & Oncology
DX: C50.411 Malignant neoplasm of upper-outer quadrant of right female breast (principal)
CPT/HCPCS: 96402; J1950

== ENCOUNTER → 2018-06-18 | Outpatient (CLI) | payer OTHER ==
--- NOTE | 2018-06-18 15:59 | XR ---
EXAMINATION TYPE: XR chest 2V DATE OF EXAM: 06/18/2018 COMPARISON: Chest x-ray September 05, 2017. HISTORY: History of breast cancer presents with lymphedema and swelling. TECHNIQUE: Frontal and lateral views of the chest are obtained. FINDINGS: There is stable left internal jugular Mediport catheter. There is no focal air space opaci ty, pleural effusion, or pneumothorax seen. The cardiac silhouette size is within normal limits. T he osseous structures are intact. IMPRESSION: No acute cardiopulmonary process. No significant change from prior.
--- NOTE | 2018-06-18 16:20 | US ---
EXAMINATION TYPE: US venous doppler duplex UE RT DATE OF EXAM: 06/18/2018 COMPARISON: 03/04/2018 CLINICAL HISTORY: R22.31 SWELLING RUE AND AXILLA. SIDE PERFORMED: Right Right Arm: Negative for DVT Grayscale, color doppler, spectral doppler imaging performed of the deep veins of the upper extremiti es. There is normal flow, compressibility and vascular waveforms. IMPRESSION: No ultrasound evidence for acute deep or superficial vein thrombus in the right upper extremity. No significant change from prior.
--- NOTE | 2018-06-21 15:40 | USB ---
History: Patient has history of breast cancer at age 46 and has history of high-risk lesion on a previous biopsy at age 46. High risk MR breast biopsy w/vad LEFT of the left breast, March 19, 2017. US discontinued breast bx LT of the left breast, February 26, 2017. Malignant US biopsy breast VAD RT of the right breast, January 30, 2017. Malignant US biopsy breast add'l VAD RT of the right breast, January 30, 2017. Physical Findings: Nurse Summary: bilateral mastectomy. Right axilla tenderness. fluid collection at scar. US Breast RT Right complete breast ultrasound includes all four quadrants, the retroareolar region and axilla. Finding demonstrates an 8.1 x 0.9 x 4.5 cm oval well circumscribed cystic anechoic lesion at the incision post nipple. perceived post surgical seroma with adjacent sub. edema, correlate clinically. These results were verbally communicated with the patient and result sheet given to the patient on 06/18/18. ASSESSMENT: Probably benign, BI-RAD 3 RECOMMENDATION: Clinical management.
== END | disposition home or self-care (01) ==
LOC: RADUSWWP 14:22
PROVIDERS: ATTEND Internal Medicine Hematology & Oncology
DX: C50.411 Malignant neoplasm of upper-outer quadrant of right female breast (principal); M25.512 Pain in left shoulder; G43.909 Migraine, unspecified, not intractable, without status migrainosus; R22.31 Localized swelling, mass and lump, right upper limb; Z71.3 Dietary counseling and surveillance; Z85.3 Personal history of malignant neoplasm of breast
CPT/HCPCS: 71046

== ENCOUNTER → 2018-06-26 | Outpatient (CLI) | payer OTHER ==
--- NOTE | 2018-06-26 15:20 | BD ---
EXAMINATION TYPE: Axial Bone Density DATE OF EXAM: 06/26/2018 COMPARISON: NONE CLINICAL HISTORY: 47 YR OLD FEMALE....ICD-10 CODE: C50.411 BR CANCER, Z79.890 POST MENOPAUSAL Height: 61.3 Weight: 177 FRAX RISK QUESTIONS: Glucocorticoids (More than 3mos): YES (Ex: prednisone, prednisolone, methylprednisolone, dexamethasone, and hydrocortisone). 3. Menopause before 45: AT AGE 46 Current Tobacco Use: YES RISK FACTORS HISTORY OF: Postmenopausal woman: YES AT AGE 46 YRS OLD FEMARA FOR BREAST CANCER, LUPRON SHOT Poor Health: BATTLING BREAST CANCER RIGHT NOW MEDICATIONS: Prednisone or other steroids: ASTHMA INHALERS, COPD INHALERS, SPIRIVA, VENTOLIN, BREATHING TREATMENTS 2X DAILY How Long: FOR MANY YRS Additional Medications: XANAX, HX OF CHEMO AND RADIATION FOR BREAST CANCER, VIT D, REFLUX MEDS, Additional History: BILAT MASTECTOMY FOR RT BREAST CANCER, ANXIETY, EXAM MEASUREMENTS: Bone mineral densitometry was performed using the [employer] System. Bone mineral density as measured about the Lumbar spine is: ----- L1-L4(G/cm2): 0.936 T Score Values are as follows: ----- L1: -1.1 ----- L2: -2.4 ----- L3: -1.8 ----- L4: -2.7 ----- L1-L4: -2.0 Bone mineral density FIRST DEXA SCAN.....BASELINE STUDY Bone mineral density about the R hip (g/cm2): 0.756 Bone mineral density about the L hip (g/cm2): 0.858 T Score values are as follows: -----R Neck: -2.9 -----L Neck: -1.9 -----R Total: -2.0 -----L Total: -1.2 Bone mineral density BASELINE STUDY FRAX%s: THERE IS A 12.3% CHANCE FOR A MAJOR OSTE POROTIC FX AND A 6.3% FOR HIP.....PROBABILITY OF FX IN 10 YRS TIME IMPRESSION: Osteoporosis (T Score less than -2.5). There is increased fracture risk and therapy is usually indicated based on age. Re-Screen 1-2 years. NOTE: T-SCORE=SD OF THE YOUNG ADULT MEAN.
== END ==
LOC: RADBDWWP 14:17
PROVIDERS: ATTEND Internal Medicine Hematology & Oncology
DX: C50.411 Malignant neoplasm of upper-outer quadrant of right female breast (principal); M81.0 Age-related osteoporosis without current pathological fracture; Z79.890 Hormone replacement therapy
CPT/HCPCS: 77080

== ENCOUNTER → 2018-07-17 | Outpatient (CLI) | payer OTHER ==
--- NOTE | 2018-07-18 10:42 | ECHOF ---
Referral Reason:C50.411 BREAST CA Z01.818 CHEMO EXPOSU MEASUREMENTS -------- HEIGHT: 162.6 cm WEIGHT: 84.4 kg BP: 133/70 RVIDd: 3.5 cm (< 3.3) IVSd: 0.9 cm (0.6 - 1.1) LVIDd: 4.1 cm (3.9 - 5.3) LVPWd: 0.9 cm (0.6 - 1.1) IVSs: 1.4 cm LVIDs: 2.6 cm LVPWs: 1.6 cm LA Diam: 3.0 cm (2.7 - 3.8) LAESV Index (A-L): 20.02 ml/m Ao Diam: 3.2 cm (2.0 - 3.7) AV Cusp: 2.3 cm (1.5 - 2.6) MV EXCURSION: 16.659 mm (> 18.000) MV EF SLOPE: 90 mm/s (70 - 150) EPSS: 0.5 cm MV E Gene: 0.80 m/s MV DecT: 195 ms MV A Gene: 0.62 m/s MV E/A Ratio: 1.29 RAP: 5.00 mmHg RVSP: 36.16 mmHg FINDINGS -------- Sinus rhythm. This was a technically good study. The left ventricular size is normal. Left ventricular wall thickness is normal. Overall left vent ricular systolic function is normal with, an EF between 60 - 65 %. The right ventricle is mildly enlarged. Normal LA size by volume 22+/-6 ml/m2. The right atrium is normal in size. The aortic valve is trileaflet and appears structurally normal. There is trace mitral regurgitation. Mild tricuspid regurgitation present. There is mild pulmonary hypertension. The right ventricular systolic pressure, as measured by Doppler, is 36.16mmHg. The pulmonic valve was not well visualized. The aortic root size is normal. Normal inferior vena cava with normal inspiratory collapse consistent with estimated right atrial pre ssure of 5 mmHg. There is no pericardial effusion. CONCLUSIONS -------- 1. Sinus rhythm. 2. This was a technically good study. 3. The left ventricular size is normal. 4. Left ventricular wall thickness is normal. 5. Overall left ventricular systolic function is normal with, an EF between 60 - 65 %. 6. The right ventricle is mildly enlarged. 7. Normal LA size by volume 22+/-6 ml/m2. 8. The right atrium is normal in size. 9. The aortic valve is trileaflet and appears structurally normal. 10. There is trace mitral regurgitation. 11. Mild tricuspid regurgitation present. 12. There is mild pulmonary hypertension. 13. The right ventricular systolic pressure, as measured by Doppler, is 36.16mmHg. 14. The pulmonic valve was not well visualized. 15. The aortic root size is normal. 16. Normal inferior vena cava with normal inspiratory collapse consistent with estimated right atrial pressure of 5 mmHg. 17. There is no pericardial effusion. MANUFACTURER'S REPRESENTATIVE: Concepcion Bailey RDCS
== END ==
LOC: RADECHMAIN 15:25
PROVIDERS: ATTEND Internal Medicine Hematology & Oncology
DX: I34.0 Nonrheumatic mitral (valve) insufficiency (principal); I27.20 Pulmonary hypertension, unspecified
CPT/HCPCS: 93306

== ENCOUNTER → 2018-07-17 | Outpatient (CLI) | payer OTHER ==
[~2018-07-17] MED LIST changes: +LEUPROLIDE ACET 11.25MG SYRGKIT IM NR
[2018-07-17 15:24] VITALS: BP 133/76; PULSE 85; RESP 16; TEMP 97.7
== END | disposition home or self-care (01) ==
LOC: PROCWHC3 14:59
PROVIDERS: ATTEND Internal Medicine Hematology & Oncology
DX: C50.411 Malignant neoplasm of upper-outer quadrant of right female breast (principal)
CPT/HCPCS: 96402; J1950

== ENCOUNTER 2018-07-18 07:18 | Day surgery (SDC) | payer OTHER ==
[2018-07-15 15:49] VITALS: BMI 31.9
[~2018-07-18 07:18] MED LIST changes: +DEXAMETHASONE SOD PHOSPHATE 10 MG/ML 1 ML VIAL IV ONE; +HYDROmorphone 0.5 MG/0.5 ML SYRINGE IVP PRN; +LACTATED RINGERS 1,000 ML IV SCH; -LEUPROLIDE ACET 11.25MG SYRGKIT IM NR; -LEUPROLIDE ACET 11.25MG SYRGKIT IM ONE; +MIDAZOLAM (PF) 2 MG/2 ML VIAL IV PRN; +ONDANSETRON 4 MG/2 ML VIAL IVP ONE; +SCOPOLAMINE 1.5MG/72HR PATCH TRANSDERM ONE
--- NOTE | 2018-07-18 07:38 | P.GSHP ---
History of Present Illness H&P Date: 07/18/18 CHIEF COMPLAINT: Breast cancer. HISTORY OF PRESENT ILLNESS: The patient is a 47-year-old female diagnosed with invasive breast cancer. She had a Mediport placement. She presents for Port-A-Cath removal upon completion of her chemotherapy. PAST MEDICAL HISTORY: Breast cancer. PAST SURGICAL HISTORY: Breast biopsy. CURRENT MEDICATIONS: See list. ALLERGIES: See list. SOCIAL HISTORY: No active tobacco or alcohol use. FAMILY HISTORY: Noncontributory. REVIEW OF ORGAN SYSTEMS: CONSTITUTIONAL: Denies any fever or chills. Denies recent weight loss or weight gain. HEENT: Denies any trouble with vision, hearing or nosebleeds. No difficulty swallowing. BREASTS: Please see above. PHYSICAL EXAMINATION: Vital signs: Stable GENERAL: Well developed female and in no acute distress. Pleasant. HEENT: No sclera icterus. Extraocular movements grossly intact. Moist buccal mucosa. Head is atraumatic, normocephalic. Hears conversational speech. No nasal drainage. NECK: Supple without lymphadenopathy. No JV distention. CHEST: Non-labored respirations and equal bilateral excursions. CARDIOVASCULAR: Regular rate and rhythm. Palpable 2+ radial pulses. ABDOMEN: Nontender. MUSCULOSKELETAL: No clubbing, cyanosis or edema. NEUROLOGIC: No focal or lateralizing signs. PSYCH: Appropriate affect. Alert and oriented to person, place and time. ASSESSMENT: 1. Breast cancer. 2. Need for chemotherapeutic access. PLAN: 1. Agree with Port-A-Cath removal per patient's request. Past Medical History Past Medical History: Cancer, GERD/Reflux Additional Past Medical History / Comment(s): MIGRAINES, CHRONIC BRONCHITIS, [facility] BREAST CANCER. History of Any Multi-Drug Resistant Organisms: None Reported Past Surgical History: Breast Surgery Additional Past Surgical History / Comment(s): [facility] BREAST BX. MASTECTOMY AND RIGHT SIDE LYMPH NODE DISSECTION Past Anesthesia/Blood Transfusion Reactions: No Reported Reaction Additional Past Anesthesia/Blood Transfusion Reaction / Comment(s): NEVER RECEIVED ANESTHESIA. Smoking Status: Former smoker - Past Family History Father Family Medical History: Cancer Additional Family Medical History / Comment(s): lung, brain cancer Medications and Allergies Home Medications Medication Instructions Recorded Confirmed Type Albuterol Inhaler [Ventolin Hfa 1 - 2 puff INHALATION RT-Q6H PRN 02/26/17 History Inhaler] HYDROcodone/APAP 5-325MG [[place] 1 tab PO Q6H PRN 05/15/17 07/15/18 History 5-325] ALPRAZolam [Xanax] 0.25 mg PO BID PRN 01/21/18 07/15/18 History Cholecalciferol [Vitamin D3] 1,000 unit PO DAILY 04/15/18 07/15/18 History Letrozole 2.5 mg PO DAILY 04/15/18 07/15/18 History Leuprolide Acetate [Lupron Depot] 11.25 mg IM DIRECTED 04/15/18 07/15/18 History QUEtiapine [SEROquel] 25 mg PO HS 07/15/18 07/15/18 History Allergies Allergy/AdvReac Type Severity Reaction Status Date / Time No Known Allergies Allergy Verified 07/15/18 15:24
[2018-07-18 07:51] VITALS: RESP 18; TEMP 97.2
[2018-07-18] MEDS ORDERED: LIDOCAINE 1% 20 ML VIAL (10MG/ML) FOR IV START INTRADERMA ONE (07:52)
[2018-07-18] MEDS: ceFAZolin IN SWFI 2 GM/20 ML SYRINGE IVP ONE ×2 (09:11→09:30)
[2018-07-18] MEDS ORDERED: BUPIVACAIN-EPI 0.25%-1:200,000 30 ML VIAL SQ ONE ×2 (09:12→09:36)
[2018-07-18] MEDS ORDERED: PROPOFOL 10 MG/ML 20 ML VIAL IV ONE (09:13)
[2018-07-18] MEDS ORDERED: MIDAZOLAM 2 MG/2 ML VIAL ONE (09:13)
[2018-07-18] MEDS ORDERED: fentaNYL (PF) 50 MCG/ML 2 ML AMP ONE (09:13)
[2018-07-18] MEDS ORDERED: LACTATED RINGERS 1,000 ML IV ONE (09:45)
--- NOTE | 2018-07-18 09:56 | P.PCN ---
Date of Procedure: 07/18/18 Description of Procedure: SURGEON: JUDITH HOGUE MD BIOLOGY TEACHER: None. PREOPERATIVE DIAGNOSIS: 1. Breast cancer, right 2. Chemotherapeutic venous access. 3. Asthma 4. Anxiety 5. Chronic bronchitis 6. Depression POSTOPERATIVE DIAGNOSIS: 1. Breast cancer, right 2. Chemotherapeutic venous access. 3. Asthma 4. Anxiety 5. Chronic bronchitis 6. Depression OPERATION: Removal of left internal jugular vein Port-A-Cath. ANESTHESIA: MAC with 30 mL local ESTIMATED BLOOD LOSS: 2 mL SPECIMENS REMOVED: Port-A-Cath COMPLICATIONS: None. Disposition: same day INDICATIONS: The patient is a 47-year-old female who completed chemotherapy for breast cancer. She now has elected for removal. Benefits and risks were described. Informed consent was obtained. DESCRIPTION OF PROCEDURE: Patient was brought to the operating room, laid in supine position. After IV sedation the chest wall was prepped and draped in standard sterile fashion. Prior to incision, a timeout protocol was confirmed with surgical team regarding the patient's name including procedures to be performed. As this was a clean case, no further antibiotics were required. Additionally, early ambulation was encouraged for DVT prophylaxis. Attention was brought to the area of the port site, whereby a total of 30 mL of local was infiltrated into the skin for a field block. A #15 blade was used to incise along the previous cicatrix. Electro- Bovie cautery was used to control for hemostasis. Adhesions were lysed around the Mediport. The port was extracted without sequelae. Pressure for 2 minutes was placed along the internal jugular vein. Hemostasis was checked along the pocket of the Port-A-Cath site. The wound was closed in layers using 3-0 Vicryl for the deep subcutaneous tissues followed by 4-0 Monocryl in a running subcuticular fashion. Dermabond was applied to the skin. Once dried a 4 x 4 Optifoam was applied. At the end of the procedure needle, sponge and instrument counts were verified correct by the plant technician/control room operator. The patient had tolerated the procedure well and was taken to postanesthesia care in stable condition. FINDINGS: 1. Unremarkable Port-a-cath extraction. Plan - Discharge Summary Discharge Rx Participant: Yes New Discharge Prescriptions: New Acetaminophen [Tylenol] 325 mg PO Q4H #30 tab No Action Albuterol Inhaler [Ventolin Hfa Inhaler] 1 - 2 puff INHALATION RT-Q6H PRN PRN Reason: Shortness Of Breath HYDROcodone/APAP 5-325MG [[place] 5-325] 1 tab PO Q6H PRN PRN Reason: Pain ALPRAZolam [Xanax] 0.25 mg PO BID PRN PRN Reason: Anxiety Leuprolide Acetate [Lupron Depot] 11.25 mg IM DIRECTED Letrozole 2.5 mg PO DAILY Cholecalciferol [Vitamin D3] 1,000 unit PO DAILY QUEtiapine [SEROquel] 25 mg PO HS Discharge Medication List Albuterol Inhaler [Ventolin Hfa Inhaler] 1 - 2 puff INHALATION RT-Q6H PRN [History] HYDROcodone/APAP 5-325MG [[place] 5-325] 1 tab PO Q6H PRN 05/15/17 [History] ALPRAZolam [Xanax] 0.25 mg PO BID PRN 01/21/18 [History] Cholecalciferol [Vitamin D3] 1,000 unit PO DAILY 04/15/18 [History] Letrozole 2.5 mg PO DAILY 04/15/18 [History] Leuprolide Acetate [Lupron Depot] 11.25 mg IM DIRECTED 04/15/18 [History] QUEtiapine [SEROquel] 25 mg PO HS 07/15/18 [History] Acetaminophen [Tylenol] 325 mg PO Q4H #30 tab 07/18/18 [Rx] Follow up Appointment(s)/Referral(s): Judith Hogue MD [STAFF PHYSICIAN] - As Needed Patient Instructions/Handouts: Care After Central Line Removal (DC) Activity/Diet/Wound Care/Special Instructions: May shower. Remove dressing 07/21/2018. Please sleep on elevated 3 pillows. Expect bruising which will continue for 2 weeks. Discharge Disposition: HOME SELF-CARE
[2018-07-18 10:15] VITALS: BP 124/76; PULSE 91
== END 2018-07-18 10:37 | disposition home or self-care (01) ==
LOC: OR 07:18
PROVIDERS: ATTEND Surgery Plastic and Reconstructive Surgery
DX: Z45.2 Encounter for adjustment and management of vascular access device (principal); C50.911 Malignant neoplasm of unspecified site of right female breast; Z92.21 Personal history of antineoplastic chemotherapy; Z90.13 Acquired absence of bilateral breasts and nipples; Z85.3 Personal history of malignant neoplasm of breast; J45.909 Unspecified asthma, uncomplicated; F41.9 Anxiety disorder, unspecified; J44.9 Chronic obstructive pulmonary disease, unspecified; F32.9 Major depressive disorder, single episode, unspecified; K21.9 Gastro-esophageal reflux disease without esophagitis; G43.909 Migraine, unspecified, not intractable, without status migrainosus; Z79.899 Other long term (current) drug therapy; Z87.891 Personal history of nicotine dependence
CPT/HCPCS: 36590; J2250; J1100; J2405; J3010; J2704; J0690

== ENCOUNTER → 2018-08-14 | Outpatient (CLI) | payer OTHER ==
[2018-08-14 14:25] VITALS: BP 151/73; PULSE 77; RESP 18; TEMP 96.3; BMI 32.1
--- NOTE | 2018-08-14 15:36 | P.GSHP ---
History of Present Illness H&P Date: 08/14/18 Chief Complaint: swelling under the left arm The patient is a 47-year-old white female who is status post bilateral mastectomy performed in April 2017. This was done for a right breast 3.2 cm invasive ductal cancer, T2N1mi M0 right breast cancer and on the left side she w as noted to have a TisNoM0 breast cancer. Postprocedure the patient did receive radiation therapy to the right chest wall and axilla. The patient started with bilateral breast reconstruction however developed an infection on the left side and both expanders were removed and she did not proceed with reconstruction. She did receive chemotherapy, and Herceptin and as noted had radiation therapy to the right chest wall. She is presently on Letrozole. The patient now is complaining of difficulty with lifting her right arm, and swelling under her arm, and pain in the right chest wall. The pain, swelling, and difficulty with mobility started approximately 3 months ago. She has had physical therapy without any benefit. The patient had genetic testing done which was negative. The patient has had some swelling of her right upper extremity and has been given a sleeve to help manage lymphedema. Family History: Father: Lung and brain cancer Paternal aunt: Breast cancer metastatic to the brain, (age dx. in early 50's) Hormonal History: menarche:15 : 2, 2 children, breast fed: no, first born at 20 menopause: 46 BCP: 1 year hormones: none Past surgical history: 1. Bilateral mastectomy with bilateral assistant front desk manager placement which was subsequently removed, bilateral sentinel node biopsies Past Medical History: migrains Social History: smoke: 1/2 PPD/30 years alcohol: none drugs: Marijuana candy occasionally to treat migraines - Constitutional Constitutional: Denies chills, Denies fever - EENT Eyes: Ears: Ears, nose, mouth and throat: Reports headache - Breasts Breasts: - Cardiovascular Cardiovascular: Reports shortness of breath, Denies chest pain - Respiratory Comment: COPD, smoker - Gastrointestinal Gastrointestinal: Reports diarrhea, Denies abdominal pain, Denies nausea, Denies vomiting - Genitourinary (Female) Genitourinary: Denies dysuria, Denies hematuria - Menstruation Menstruation: Reports postmenopausal - Musculoskeletal Comment: arthritis decreased mobility right arm osteoporosis - Integumentary Integumentary: Denies pruritus, Denies rash - Neurological Comment: bilateral numb finger tips Neurological: Denies numbness, Denies weakness - Psychiatric Psychiatric: Reports anxiety - Endocrine Endocrine: Reports weight change, Denies fatigue - Hematologic/Lymphatic Comment: none - Allergic/Immunologic Comment: none Past Medical History Past Medical History: Cancer, GERD/Reflux Additional Past Medical History / Comment(s): MIGRAINES, CHRONIC BRONCHITIS, [facility] BREAST CANCER. History of Any Multi-Drug Resistant Organisms: None Reported Past Surgical History: Breast Surgery Additional Past Surgical History / Comment(s): [facility] BREAST BX. MASTECTOMY AND RIGHT SIDE LYMPH NODE DISSECTION Past Anesthesia/Blood Transfusion Reactions: No Reported Reaction Additional Past Anesthesia/Blood Transfusion Reaction / Comment(s): NEVER RECEIVED ANESTHESIA. Past Psychological History: Anxiety, Depression Additional Psychological History / Comment(s): Pt. states current anxiety & depression related to recent breast cancer diagnosis. Smoking Status: Former smoker Past Alcohol Use History: Rare Additional Past Alcohol Use History / Comment(s): smokes 1/2ppd. smoking for 30 years. Past Drug Use History: Marijuana Additional Drug Use History / Comment(s): current marijuana use. - Past Family History Father Family Medical History: Cancer Additional Family Medical History / Comment(s): lung, brain cancer Medications and Allergies Home Medications Medication Instructions Recorded Confirmed Type Albuterol Inhaler [Ventolin Hfa 1 - 2 puff INHALATION RT-Q6H PRN 02/26/17 08/14/18 History Inhaler] HYDROcodone/APAP 5-325MG [[place] 1 tab PO Q6H PRN 05/15/17 08/14/18 History 5-325] ALPRAZolam [Xanax] 0.25 mg PO BID PRN 01/21/18 08/14/18 History Cholecalciferol [Vitamin D3] 1,000 unit PO DAILY 04/15/18 08/14/18 History Letrozole 2.5 mg PO DAILY 04/15/18 08/14/18 History Leuprolide Acetate [Lupron Depot] 11.25 mg IM DIRECTED 04/15/18 08/14/18 History QUEtiapine [SEROquel] 25 mg PO HS 07/15/18 08/14/18 History Allergies Allergy/AdvReac Type Severity Reaction Status Date / Time No Known Allergies Allergy Verified 08/14/18 14:25 Surgical - Exam Vital Signs Temp Pulse Resp BP Pulse Ox 96.3 F L 77 18 151/73 99 08/14/18 14:20 08/14/18 14:20 08/14/18 14:20 08/14/18 14:20 08/14/18 14:20 BMI 32.1 - General obese - Eyes normal ocular movement - ENT no hearing loss, no congestion - Neck no masses, trachea midline - Respiratory normal respiratory effort, clear to auscultation - Cardiovascular Rhythm: regular Heart Sounds: - Abdomen Abdomen: soft, non tender, no guarding, no rigid, no rebound - Integumentary Radiation changes right chest wall with extension into the area of the axilla - Musculoskeletal Limited mobility right shoulder, firmness over the right chest wall felt to be related to radiation changes normal gait, normal posture - Psychiatric oriented to time, oriented to person, oriented to place, speech is normal, memory intact Chest wall examination: Right chest wall: Skin changes related to radiation with thickening and firmness in the midportion of the incision the patient has limited mobility of the right shoulder felt to be due to to scarring/radiation changes Right axilla: No adenopathy of concern Left chest wall: Incision clean and dry well-healed Left axilla: No adenopathy of concern mild lymphedema noted on examination of the right upper extremity Results pathology results reviewed Assessment and Plan Assessment: Impression: 1. Patient status post bilateral mastectomies patient [id number] ER/IN positive HER-2/janae negative grade 2 right breast cancer, and a Tis N0 M0 left breast cancer Patient is status post chemotherapy as well as hormonal therapy, radiation therapy to the right chest wall, and is presently on letrazole. 2. Patient with limited mobility right upper extremity 3. Lymphedema right upper extremity/patient has a serious issue was ordered from medical oncology 4.migrains 5. family history of cancer Plan: 1. MRI of the right chest wall and axilla to rule out any recurrent cancer 2. Physical therapy right upper extremity 3. Continue physical therapy for mild lymphedema right upper extremity 4. Continued management as per medical oncology 5. We will discuss case with radiation oncology 6. Follow up after MRI of the chest wall and right upper extremity CC: Dr. Montenegro, ([facility])
== END | disposition home or self-care (01) ==
LOC: WWCWWP 13:38
PROVIDERS: ATTEND Surgery
DX: Z53.9 Procedure and treatment not carried out, unspecified reason (principal)

== ENCOUNTER → 2018-08-21 | Outpatient (CLI) | payer OTHER ==
--- NOTE | 2018-08-22 11:50 | BMR ---
EXAMINATION TYPE: MR breast BILAT wo/w con DATE OF EXAM: 08/21/2018 COMPARISON: MRI breast dated 02/08/2017 and MRI breast biopsy dated 03/19/2017 HISTORY: Personal history of breast cancer. Breast cancer sister was treated with the bilateral maste ctomy in April 2017. Surveillance. TECHNIQUE: A series of fat and water weighted images in the long and short axis views of both breasts are obtained in conjunction with dynamic contrast MRI with subtraction technique. The patient was i njected with 7.5 mL intravenous Gadavist gadolinium contrast. Three-dimensional and additional post processing imaging is created on independent workstation and reviewed during official interpretation of this study. FINDINGS: Bilateral mastectomies have been performed. Susceptibility artifact is seen within both breast from surgical clips. Post therapy changes seen on the right with skin thickening and radiation change of the chest wall and subcutaneous tissues. Withi n the medial subcutaneous soft tissues on T1-weighted nonfat sat axial image 14 there is a area of fa t necrosis seen as there is central hyperintense fat that has decreased signal on fat saturated T1 po stcontrast imaging. No new suspicious internal mammary or axillary adenopathy is seen within either breast. There is some enhancement of the right chest wall that appears linear with predominantly type I/plateau kinetics. There is no corresponding mass on T1 or T2-weighted images. There is a curvilinear fluid collection a t the prior surgical site with a maximum measurement of 7 mm. This represents a postsurgical seroma. No suspicious enhancement is seen bilaterally. On postcontrast subtraction image 98 there is a lingular opacity likely representing atelectasis. How ever and postcontrast series 701 image 218 and subtraction images and 18 there is a pleural-based are a of enhancement that could also represent atelectasis or less likely a pleural-based pulmonary nodul e. Some enhancement is also seen within the right middle lobe. IMPRESSION: 1. BI-RADS 2-benign findings. Linear enhancement of the right chest wall without T1 or T2 correspondi ng mass relates to post therapy change. 2. Enhancement of the lung bases likely represents atelectasis although CT thorax is recommended to e xclude pulmonary nodule.
== END | disposition home or self-care (01) ==
LOC: RADMRIMAIN 08:56
PROVIDERS: ATTEND Surgery
DX: Z08 Encounter for follow-up examination after completed treatment for malignant neoplasm (principal); Z85.3 Personal history of malignant neoplasm of breast
CPT/HCPCS: C8908; A9585; 77049

== ENCOUNTER → 2018-10-03 | Outpatient (CLI) | payer OTHER ==
--- NOTE | 2018-10-03 16:29 | CT ---
EXAMINATION TYPE: CT chest w con DATE OF EXAM: 10/03/2018 COMPARISON: 07/30/2017 HISTORY: abnormal finding on recent MRI. hx of breast ca. CT DLP: 287.6 mGycm Automated exposure control for dose reduction was used. CONTRAST: CT scan of the chest is performed with IV Contrast, patient injected with 100 mL of Isovue 300. FINDINGS: LUNGS: The lungs are grossly clear, there is no concerning parenchymal mass or nodule identified. T here is no pleural effusion or pneumothorax seen. The tracheobronchial tree is patent. MEDIASTINUM: There are no greater than 1 cm hilar or mediastinal lymph nodes. No pericardial effusi on is seen. Thoracic aorta is of normal caliber. The heart is not enlarged. UPPER ABDOMEN: No significant abnormality appreciated. OTHER: There is evidence of bilateral mastectomy. Small hiatal hernia. IMPRESSION: 1. No evidence for concerning pulmonary nodule or mass.
== END | disposition home or self-care (01) ==
LOC: RADCTMAIN 15:49
PROVIDERS: ATTEND Surgery
DX: R68.89 Other general symptoms and signs (principal)
CPT/HCPCS: 71260; Q9967

== ENCOUNTER → 2018-10-07 | Outpatient (CLI) | payer OTHER ==
--- NOTE | 2018-10-07 15:02 | XR ---
EXAMINATION TYPE: XR ribs LT DATE OF EXAM: 10/07/2018 COMPARISON: NONE HISTORY: Left rib pain after injury on Saturday TECHNIQUE: Frontal and oblique views of the left ribs were performed FINDINGS: No acute displaced rib fracture is seen. Costochondral calcifications are noted throughout. No suspicious osseous lesion. The left lung remains well aerated without visualized pneumothorax. IMPRESSION: No acute displaced rib fracture. Costochondral calcifications noted.
== END | disposition home or self-care (01) ==
LOC: RADXRMAIN 14:27
PROVIDERS: ATTEND Internal Medicine Hematology & Oncology
DX: M25.512 Pain in left shoulder (principal); M94.8X8 Other specified disorders of cartilage, other site; G43.909 Migraine, unspecified, not intractable, without status migrainosus; C50.411 Malignant neoplasm of upper-outer quadrant of right female breast; Z71.3 Dietary counseling and surveillance

== ENCOUNTER → 2018-10-09 | Outpatient (CLI) | payer OTHER ==
[~2018-10-09] MED LIST changes: -DEXAMETHASONE SOD PHOSPHATE 10 MG/ML 1 ML VIAL IV ONE; -HYDROmorphone 0.5 MG/0.5 ML SYRINGE IVP PRN; -LACTATED RINGERS 1,000 ML IV SCH; +LEUPROLIDE ACET 11.25MG SYRGKIT IM ONE; -MIDAZOLAM (PF) 2 MG/2 ML VIAL IV PRN; -ONDANSETRON 4 MG/2 ML VIAL IVP ONE; -SCOPOLAMINE 1.5MG/72HR PATCH TRANSDERM ONE
[2018-10-09 13:34] VITALS: BP 138/95; PULSE 79; RESP 16; TEMP 97.7
== END ==
LOC: PROCWHC3 12:53
PROVIDERS: ATTEND Internal Medicine Hematology & Oncology
DX: Z51.11 Encounter for antineoplastic chemotherapy (principal); C50.411 Malignant neoplasm of upper-outer quadrant of right female breast
CPT/HCPCS: 96402; J1950

== ENCOUNTER → 2018-10-10 | Outpatient (CLI) | payer OTHER ==
--- NOTE | 2018-10-10 21:34 | MR ---
EXAMINATION TYPE: MR brain wo/w con DATE OF EXAM: 10/10/2018 COMPARISON: NONE HISTORY: History of breast cancer with migraine headaches. TECHNIQUE: Multiplanar, multisequence images of the brain and brainstem is performed without and with IV contras t, utilizing 7.5 mL intravenous Gadavist . FINDINGS: Diffusion weighted images demonstrate no evidence of a recent infarct or other diffusion ab normality. There is no worrisome extra-axial fluid collection. The ventricular system and cisternal spaces are normal in size and appearance. The brain volume is age appropriate. Some scattered foci of T2 hyperintensity is seen throughout the white matter bilaterally. Less than 5 small lesions are s een. For reference is 4 mm posterior right frontal lesion axial image 44. Midline structures demonstrate normal morphology. The craniocervical junction appears within normal limits. Post contrast images demonstrate no suspicious enhancing intraparenchymal masses. The dural venous sinuses appear patent. The visualized sinuses are clear and the globes are intact. IMPRESSION: No suspicious enhancing intraparenchymal masses to suggest metastatic disease. Mild to mi nimal nonspecific white matter changes may be related to altered vascular mechanics related to produc t of migraine headaches.
== END | disposition home or self-care (01) ==
LOC: RADMRIMAIN 19:12
PROVIDERS: ATTEND Radiology Radiation Oncology
DX: R90.89 Other abnormal findings on diagnostic imaging of central nervous system (principal); C50.411 Malignant neoplasm of upper-outer quadrant of right female breast; Z92.3 Personal history of irradiation; Z90.13 Acquired absence of bilateral breasts and nipples; Z17.0 Estrogen receptor positive status [ER+]
CPT/HCPCS: 70553; A9585

== ENCOUNTER 2019-03-23 10:46 | Observation (INO) | payer OTHER ==
--- NOTE | 2019-03-23 11:34 | ED ---
General Adult HPI - General Chief complaint: Chest Pain Stated complaint: Chest pain Time Seen by Provider: 03/23/19 10:55 Source: patient, RN notes reviewed Mode of arrival: ambulatory Limitations: no limitations - History of Present Illness Initial comments: This is a 48-year-old female who presents emergency Department complaining difficult breathing and chest pain since last evening. Patient states it's a tightness sensation. Patient states she also has had a dry cough. Patient states she has a history of COPD and continues to smoke. Patient states she also said breast cancer with double mastectomy. Patient states that was 2 years ago. Patient denies any fever chills per patient denies lightheadedness or dizziness. Patient denies any headache patient denies numbness weakness. Patient denies any abdominal pain patient denies nausea vomiting diarrhea. Patient denies any leg swelling or calf tenderness. - Related Data Home Medications Medication Instructions Recorded Confirmed Albuterol Inhaler [Ventolin Hfa 1 - 2 puff INHALATION RT-Q6H PRN 02/26/17 03/23/19 Inhaler] HYDROcodone/APAP 5-325MG [[place] 1 tab PO Q6H PRN 05/15/17 03/23/19 5-325] ALPRAZolam [Xanax] 0.25 mg PO BID PRN 01/21/18 03/23/19 Cholecalciferol [Vitamin D3] 1,000 unit PO DAILY 04/15/18 03/23/19 Letrozole 2.5 mg PO DAILY 04/15/18 03/23/19 Leuprolide Acetate [Lupron Depot] 11.25 mg IM Q90D 04/15/18 03/23/19 QUEtiapine [SEROquel] 25 mg PO HS 07/15/18 03/23/19 Allergies Allergy/AdvReac Type Severity Reaction Status Date / Time No Known Allergies Allergy Verified 03/23/19 11:37 Review of Systems ROS Statement: Those systems with pertinent positive or pertinent negative responses have been documented in the HPI. ROS Other: All systems not noted in ROS Statement are negative. Past Medical History Past Medical History: Cancer, GERD/Reflux Additional Past Medical History / Comment(s): MIGRAINES, CHRONIC BRONCHITIS, HARRIS BREAST CANCER. History of Any Multi-Drug Resistant Organisms: None Reported Past Surgical History: Breast Surgery Additional Past Surgical History / Comment(s): HARRIS BREAST BX. MASTECTOMY AND RIGHT SIDE LYMPH NODE DISSECTION Past Anesthesia/Blood Transfusion Reactions: No Reported Reaction Additional Past Anesthesia/Blood Transfusion Reaction / Comment(s): NEVER RECEIVED ANESTHESIA. Past Psychological History: Anxiety, Depression Smoking Status: Former smoker Past Alcohol Use History: None Reported Past Drug Use History: Marijuana - Past Family History Father Family Medical History: Cancer Additional Family Medical History / Comment(s): lung, brain cancer General Exam - General Exam Comments Initial Comments: GENERAL: Patient is well-developed and well-nourished. Patient is nontoxic and well- hydrated and is in no acute distress. ENT: Neck is soft and supple. No significant lymphadenopathy is noted. Oropharynx is clear. Moist mucous membranes. Neck has full range of motion without eliciting any pain. EYES: The sclera were anicteric and conjunctiva were pink and moist. Extraocular movements were intact and pupils were equal round and reactive to light. Eyelids were unremarkable. PULMONARY: Unlabored respirations. Diminished breath sounds. No audible rales rhonchi or wheezing was noted. CARDIOVASCULAR: There is a regular rate and rhythm without any murmurs gallops or rubs. Patient is oxygenating at 100% on 2 L ABDOMEN: Soft and nontender with normal bowel sounds. No palpable organomegaly was note d. There is no palpable pulsatile mass. SKIN: Skin is clear with no lesions or rashes and otherwise unremarkable. NEUROLOGIC: Patient is alert and oriented x3. Cranial nerves II through XII are grossly intact. Motor and sensory are also intact. Normal speech, volume and content. Symmetrical smile. MUSCULOSKELETAL: Normal extremities with adequate strength and full range of motion. No lower extremity swelling or edema. No calf tenderness. LYMPHATICS: No significant lymphadenopathy is noted PSYCHIATRIC: Normal psychiatric evaluation. Limitations: no limitations Course Vital Signs 03/23/19 03/23/19 03/23/19 10:50 11:14 11:16 Temperature 97.8 F Pulse Rate 75 73 Respiratory 18 18 18 Rate Blood Pressure 113/75 O2 Sat by Pulse 100 100 Oximetry 03/23/19 03/23/19 03/23/19 11:30 12:00 12:30 Temperature Pulse Rate 70 68 65 Respiratory 18 18 18 Rate Blood Pressure 125/75 152/91 129/64 O2 Sat by Pulse 100 99 98 Oximetry 03/23/19 13:00 Temperature Pulse Rate 77 Respiratory 18 Rate Blood Pressure 117/67 O2 Sat by Pulse 97 Oximetry Medical Decision Making - Medical Decision Making EKG shows normal sinus rhythm at 67 bpm DC interval 136 QRS is 94 Q-T intervals 44 QTC is 426 per patient's EKG shows no ST segment elevation or depression or T wave abnormalities are noted Chest x-ray shows no acute abnormality I spoke with Dr. Pal and he agreed we will admit the patient 23 hours for the chest pain. Patient an elevated d-dimer so I did a CT of the chest showed no acute abnormality. I went back to the room to reevaluate the patient and the patient was oxygenating at 97% on room air but was still complaining some chest pain. - Lab Data Result diagrams: 03/23/19 11:28 03/23/19 11:28 Lab Results 03/23/19 03/23/19 03/23/19 Range/Units 11:28 11:28 11:28 WBC 6.8 (3.8-10.6) k/uL RBC 4.49 (3.80-5.40) m/uL Hgb 14.0 (11.4-16.0) gm/dL Hct 42.7 (34.0-46.0) % MCV 95.0 (80.0-100.0) fL MCH 31.1 (25.0-35.0) pg MCHC 32.8 (31.0-37.0) g/dL RDW 12.8 (11.5-15.5) % Plt Count 247 (150-450) k/uL Neutrophils % 59 % Lymphocytes % 28 % Monocytes % 5 % Eosinophils % 3 % Basophils % 1 % Neutrophils # 4.0 (1.3-7.7) k/uL Lymphocytes # 1.9 (1.0-4.8) k/uL Monocytes # 0.4 (0-1.0) k/uL Eosinophils # 0.2 (0-0.7) k/uL Basophils # 0.1 (0-0.2) k/uL PT 9.5 (9.0-12.0) sec INR 0.9 (<1.2) APTT 24.0 (22.0-30.0) sec D-Dimer 0.69 H (<0.60) mg/L FEU Sodium 142 (137-145) mmol/L Potassium 4.1 (3.5-5.1) mmol/L Chloride 104 (98-107) mmol/L Carbon Dioxide 29 (22-30) mmol/L Anion Gap 9 mmol/L BUN 7 (7-17) mg/dL Creatinine 0.60 (0.52-1.04) mg/dL Est GFR (CKD-EPI)AfAm >90 (>60 ml/min/1.73 sqM) Est GFR (CKD-EPI)NonAf >90 (>60 ml/min/1.73 sqM) Glucose 99 (74-99) mg/dL Calcium 9.5 (8.4-10.2) mg/dL Magnesium 1.7 (1.6-2.3) mg/dL Total Bilirubin 0.3 (0.2-1.3) mg/dL AST 20 (14-36) U/L ALT 17 (9-52) U/L Alkaline Phosphatase 73 (38-126) U/L Troponin I (0.000-0.034) ng/mL Total Protein 6.7 (6.3-8.2) g/dL Albumin 3.8 (3.5-5.0) g/dL 03/23/19 Range/Units 11:28 WBC (3.8-10.6) k/uL RBC (3.80-5.40) m/uL Hgb (11.4-16.0) gm/dL Hct (34.0-46.0) % MCV (80.0-100.0) fL MCH (25.0-35.0) pg MCHC (31.0-37.0) g/dL RDW (11.5-15.5) % Plt Count (150-450) k/uL Neutrophils % % Lymphocytes % % Monocytes % % Eosinophils % % Basophils % % Neutrophils # (1.3-7.7) k/uL Lymphocytes # (1.0-4.8) k/uL Monocytes # (0-1.0) k/uL Eosinophils # (0-0.7) k/uL Basophils # (0-0.2) k/uL PT (9.0-12.0) sec INR (<1.2) APTT (22.0-30.0) sec D-Dimer (<0.60) mg/L FEU Sodium (137-145) mmol/L Potassium (3.5-5.1) mmol/L Chloride (98-107) mmol/L Carbon Dioxide (22-30) mmol/L Anion Gap mmol/L BUN (7-17) mg/dL Creatinine (0.52-1.04) mg/dL Est GFR (CKD-EPI)AfAm (>60 ml/min/1.73 sqM) Est GFR (CKD-EPI)NonAf (>60 ml/min/1.73 sqM) Glucose (74-99) mg/dL Calcium (8.4-10.2) mg/dL Magnesium (1.6-2.3) mg/dL Total Bilirubin (0.2-1.3) mg/dL AST (14-36) U/L ALT (9-52) U/L Alkaline Phosphatase (38-126) U/L Troponin I <0.012 (0.000-0.034) ng/mL Total Protein (6.3-8.2) g/dL Albumin (3.5-5.0) g/dL Disposition Clinical Impression: Chest pain Disposition: ADMITTED IP TO THIS [facility] Referrals: Nonstaff,Physician [REFERRING] - 1-2 days Time of Disposition: 14:20
[2019-03-23 11:44] LABS: Basophils # (A) 0.1 k/uL (0-0.2); Basophils % (A) 1 %; Eosinophils # (A) 0.2 k/uL (0-0.7); Eosinophils % (A) 3 %; HCT 42.7 % (34.0-46.0); Lymphocytes # (A) 1.9 k/uL (1.0-4.8); Lymphocytes % (A) 28 %; MCH 31.1 pg (25.0-35.0); MCHC 32.8 g/dL (31.0-37.0); Mean Platelet Volume 7.4; Monocytes # (A) 0.4 k/uL (0-1.0); Monocytes % (A) 5 %; Neutrophils % (A) 59 %; Platelet Count 247 k/uL (150-450); RBC 4.49 m/uL (3.80-5.40); RDW 12.8 % (11.5-15.5); WBC 6.8 k/uL (3.8-10.6)
[2019-03-23 11:53] LABS: ALT 17 U/L (9-52); AST 20 U/L (14-36); African American GFR (CKD) >90 (>60 ml/min/1.73 sqM); Albumin 3.8 g/dL (3.5-5.0); Alkaline Phosphatase 73 U/L (38-126); Anion Gap 9 mmol/L; Blood Urea Nitrogen 7 mg/dL (7-17); Calcium 9.5 mg/dL (8.4-10.2); Carbon Dioxide 29 mmol/L (22-30); Chloride 104 mmol/L (98-107); Glucose 99 mg/dL (74-99); Magnesium 1.7 mg/dL (1.6-2.3); Potassium 4.1 mmol/L (3.5-5.1); Sodium 142 mmol/L (137-145); Total Bilirubin 0.3 mg/dL (0.2-1.3); Total Protein 6.7 g/dL (6.3-8.2)
[2019-03-23 11:55] LABS: INR 0.9 (<1.2); Prothrombin Time 9.5 sec (9.0-12.0)
--- NOTE | 2019-03-23 11:55 | XR ---
EXAMINATION TYPE: XR chest 2V DATE OF EXAM: 03/23/2019 COMPARISON: NONE TECHNIQUE: PA and lateral views submitted. HISTORY: Chest pain FINDINGS: The lungs are clear and there is no pneumothorax, pleural effusion, or focal pneumonia. Degenerativ e changes of the spine. Subsegmental changes right perihilar region. Biapical pleural thickening. No overt failure. Curvature the spine noted. IMPRESSION: 1. Right perihilar subsegmental atelectasis favored over pneumonia correlate clinically for confirmat ion..
[2019-03-23 12:35] LABS: D-Dimer 0.69 mg/L FEU (<0.60)
--- NOTE | 2019-03-23 13:19 | CT ---
CT CHEST FOR PULMONARY EMBOLISM. EXAMINATION TYPE: CT chest angio for PE DATE OF EXAM: 03/23/2019 INDICATION: SOB, Rt sided chest pain, history of breast CA CT DLP: 314 mGycm, Automated exposure control for dose reduction was used. CONTRAST: Patient injected with 100 mL of Isovue 370. COMPARISON: 07/30/2017 TECHNIQUE: CT of the chest is performed on a spiral scan at 2 mm thick sections. Study is performed with intravenous contrast timed for evaluation for pulmonary embolism. This will limit additional po rtions of the evaluation. 3-D MIP images reconstructed by the technologist are reviewed on the compu ter in the coronal and sagittal planes. FINDINGS: No persistent filling defects are evident to suggest an acute pulmonary embolism. No mediastinal or hilar adenopathy enlarged by CT criteria is evident. The ascending aorta diameter at the level of the main pulmonary artery is 3.1 cm. The main pulmonary artery diameter at the bifur cation is 2.0 cm. Lung windows are clear. Limited CT section through the upper abdomen are unremarkable. IMPRESSIONS: 1. No acute pulmonary embolism.
[2019-03-23] MEDS ORDERED: NITROGLYCERIN SL TABS 0.4 MG TAB SUBLINGUAL PRN (14:20)
[2019-03-23] MEDS ORDERED: ASPIRIN 81 MG PO STA (14:34)
[2019-03-23] MEDS ORDERED: NITROGLYCERIN OINT 1 INCH/GM PACKET TOPICAL STA (14:34)
[2019-03-23] MEDS ORDERED: INFLUENZA VACCINE (6 MOS+) 60 MCG/0.5 ML SYRINGE IM ONE (15:04)
[2019-03-23] MEDS ORDERED: HYDROcodone/APAP 5-325MG 1 EACH TAB PO PRN (16:34)
[2019-03-23] MEDS ORDERED: ALPRAZolam 0.25 MG TAB PO PRN (16:34)
[2019-03-23] MEDS ORDERED: ALBUTEROL NEBULIZED 2.5 MG/3 ML INHALATION PRN (16:34)
--- NOTE | 2019-03-23 17:58 | P.HPIM ---
History of Present Illness the patient is a 50-year-old morbidly obese female with a past medical history of COPD, breast cancer status post bilateral mastectomy 2 years ago currently on hormonal replacement who presents to the ER via private vehicle chief complaint of chest pain. Apparently the patient's been having intermittent substernal chest pressure worsened by her cough and deep breaths with radiation to the flanks since yesterday , she denies any association with exertion, she mentions some shortness of breath . She reports a nonproductive cough for the last 7 days, she denies any subjective fevers chills or night sweats. She has COPD and continues to smoke, she denied any associated lightheadedness, dizziness, diaphoresis or nausea or vomiting. The patient has not had her flu shot this season. In the ER showed a comprehensive workup she had elevated d-dimer subsequent CTA of the chest was negative for any acute PE, EKG showed normal sinus rhythm. Chest x-ray showed right perihilar subsegmental atelectasis favored over pneumonia correlate clinically. Patient is given aspirin nitroglycerin a flu shot and recommended for observation to rule out ACS Review of Systems Pertinent positives per HPI all other review of systems muscles was negative Past Medical History Past Medical History: Cancer, COPD, GERD/Reflux, Osteoarthritis (OA) Additional Past Medical History / Comment(s): Chronic bronchitis, bilateral breast cancer with mastectomies/chemo and radiation, arthritis in multiple joints, migraines. History of Any Multi-Drug Resistant Organisms: None Reported Past Surgical History: Breast Surgery Additional Past Surgical History / Comment(s): HARRIS BREAST BX. BILATERAL MASTECTOMIES AND RIGHT SIDE LYMPH NODE DISSECTION, port now removed Past Anesthesia/Blood Transfusion Reactions: No Reported Reaction Additional Past Anesthesia/Blood Transfusion Reaction / Comment(s): NEVER RECEIVED ANESTHESIA. Smoking Status: Current every day smoker - Past Family History Father Family Medical History: Cancer Additional Family Medical History / Comment(s): Father at age 69yrs from lung to brain cancer Mother Family Medical History: Hyperlipidemia Medications and Allergies Home Medications Medication Instructions Recorded Confirmed Type Albuterol Inhaler [Ventolin Hfa 1 - 2 puff INHALATION RT-Q6H PRN 02/26/17 03/23/19 History Inhaler] HYDROcodone/APAP 5-325MG [[place] 1 tab PO Q6H PRN 05/15/17 03/23/19 History 5-325] ALPRAZolam [Xanax] 0.25 mg PO BID PRN 01/21/18 03/23/19 History Cholecalciferol [Vitamin D3] 1,000 unit PO DAILY 04/15/18 03/23/19 History Letrozole 2.5 mg PO DAILY 04/15/18 03/23/19 History Leuprolide Acetate [Lupron Depot] 11.25 mg IM Q90D 04/15/18 03/23/19 History QUEtiapine [SEROquel] 25 mg PO HS 07/15/18 03/23/19 History Allergies Allergy/AdvReac Type Severity Reaction Status Date / Time No Known Allergies Allergy Verified 03/23/19 11:37 Physical Exam Vitals: Vital Signs Temp Pulse Pulse Resp BP BP Pulse Ox 03/23/19 15:10 97.5 F L 72 16 129/86 98 03/23/19 14:56 98.1 F 03/23/19 14:30 70 18 120/91 98 03/23/19 14:00 69 16 123/97 95 03/23/19 13:30 63 16 122/78 96 03/23/19 13:00 77 18 117/67 97 03/23/19 12:30 65 18 129/64 98 03/23/19 12:00 68 18 152/91 99 03/23/19 11:30 70 18 125/75 100 03/23/19 11:16 18 03/23/19 11:14 73 18 100 03/23/19 10:50 97.8 F 75 18 113/75 100 Intake and Output 03/23/19 03/23/19 03/23/19 06:59 14:59 22:59 Other: Weight 86.183 kg Constitutional: No acute distress, conversant, pleasant Eyes: Anicteric sclerae, moist conjunctiva, no lid-lag, PERRLA ENMT: NC/AT,Oropharynx clear, no erythema, exudates Neck:Supple, FROM, no masses, or JVD, No carotid bruits; No thyromegaly Lungs: Clear to auscultation, Clear to percussion, Normal respiratory effort, no accessory muscle use Cardiovascular: Heart regular in rate and rhythm, No murmurs, gallops, or rubs no peripheral edema Abdominal: Soft Nontender, nom distended, no guarding, no rebound or rigidity, Normoactive bowel sounds No hepatomegaly, No splenomegaly, No palpable mass No abdominal wall hernia noted Skin: Normal temperature, tone, texture, turgor, No induration No subcutaneous nodules, No rash, lesions, No ulcers Extremities:No digital cyanosis No clubbing, Pedal pulses intact and symmetrical Radial pulses intact and symmetrical Normal gait and station, No calf tenderness Psychiatric: Alert and oriented to person, place and time, Appropriate affect Intact judgement Neuro: Muscles Strength 5/5 in all 4 extremities, Sensation to light touch grossly present throughout, Cranial nerves II-XII grossly intact. No focal sensory deficits Results CBC & Chem 7: 03/23/19 11:28 03/23/19 11:28 Labs: Abnormal Lab Results - Last 24 Hours (Table) 03/23/19 Range/Units 11:28 D-Dimer 0.69 H (<0.60) mg/L FEU Thrombosis Risk Factor Assmnt - Choose All That Apply Any of the Below Risk Factors Present?: Yes Each Factor Represents 1 point: Abnormal pulmonary function (COPD), Age 41-60 years, Obesity (BMI >25) Other Risk Factors: Yes Each Risk Factor Represents 2 Points: Malignancy Other congenital or acquired thrombophilia - If yes, enter type in comment: No Thrombosis Risk Factor Assessment Total Risk Factor Score: 5 Thrombosis Risk Factor Assessment Level: High Risk Assessment and Plan Assessment: Atypical chest pain Costochondritis COPD Acute bronchitis elevated d-dimer History of breast cancer status post bilateral mastectomy Plan: Patient is [place] observation status at this been a less than 2 midnight stay wi th atypical chest pain in the setting of patient presenting with symptoms of acute bronchitis in a smoker with COPD. There appears to be no acute exacerbation this time, initial workup has been negative with EKG with no suggestion of acute ischemia currently with sinus mechanism, troponin was negat jairo at less than 0.012. We'll continue to trend his troponins sequentially, and order echocardiogram and cardiology has been consulted from the ED. D-dimer was elevated at 0.69 subsequent CTA is ruled out PE. On exam patient's pain was reproducible suggesting acute costochondritis for which she'll be started on NSAIDs with Naproxen. She is also placed on nicotine patch. continue to follow clinical course CODE STATUS: Full code Anticipated discharge: 1-[address]: Home Discussed plan of care with: Patient Prophylaxis: Heparin and Protonix
[2019-03-23 19:31] VITALS: RESP 18
[2019-03-23] MEDS ORDERED: QUEtiapine 25 MG TAB PO SCH (21:00)
[2019-03-23] MEDS: NAPROXEN 250 MG TAB PO SCH (21:09)
[2019-03-23] MEDS: guaiFENesin 600 MG TABLET.ER PO SCH (21:09)
[2019-03-23] MEDS: HEPARIN SODIUM,PORCINE 5,000 UNIT/ML 1 ML VIAL SQ SCH (21:10)
[2019-03-24] MEDS ORDERED: MAG HYDROX/AL HYDROX/SIMETH 30 ML CUP PO PRN (04:16)
[2019-03-24 05:39] LABS: Cholesterol 209 mg/dL (<200); HDL Cholesterol 34 mg/dL (40-60); LDL Cholesterol,Calculated 147 mg/dL (0-99); Triglycerides 141 mg/dL (<150)
[2019-03-24] MEDS: PANTOPRAZOLE 40 MG TABLET PO SCH ×2 (06:16)
[2019-03-24] MEDS ORDERED: CHOLECALCIFEROL 1,000 UNIT TAB PO SCH (09:00)
[2019-03-24] MEDS ORDERED: LETROZOLE 2.5 MG TAB PO SCH (09:00)
[2019-03-24] MEDS ORDERED: NICOTINE 14MG/24HR PATCH TRANSDERM SCH (09:00)
[2019-03-24] MEDS ORDERED: ASPIRIN 325 MG TAB PO SCH (09:00)
[2019-03-24] MEDS ORDERED: ASPIRIN 81 MG PO SCH (09:00)
[2019-03-24] MEDS: HEPARIN SODIUM,PORCINE 5,000 UNIT/ML 1 ML VIAL SQ SCH (10:05)
[2019-03-24] MEDS: guaiFENesin 600 MG TABLET.ER PO SCH (10:05)
[2019-03-24] MEDS: NAPROXEN 250 MG TAB PO SCH (10:05)
[2019-03-24 11:31] VITALS: BP 95/68; PULSE 64; TEMP 97.4
--- NOTE | 2019-03-24 11:45 | P.CRDCN ---
History of Present Illness History of present illness: This is a pleasant 48-year-old female past medical history significant for breast cancer status post bilateral mastectomy with chemo and radiation, last chemotherapy December 2017, COPD, gastroesophageal reflux disease, chronic nicotine dependence and regular marijuana use. She denies prior history of coronary artery disease and does not follow with a technical specialist for any reason. We have been asked here in consultation secondary to chest discomfort. She complains of a heavy pressure like chest pain in the mid-sternal region yesterday while she was sitting down watching television. The discomfort lasted for approximately 1-2 minutes and was associated with cough and deep ins piration. No radiation to the arm, back, neck or jaw. She denies associated shortness of breath, dizziness, nausea, vomiting, palpitations or diaphoresis. EKG reveals sinus mechanism with no acute ST or T-wave abnormalities. CTA negative for PE and lungs are overall clear. Laboratory data reviewed, cardiac enzymes negative x3. No daily cardiac medications. At the time of my exam: CONSTITUTIONAL: Denies fever. Denies chills. EYES: Denies blurred vision. Denies vision changes. Denies eye pain. EARS, NOSE, MOUTH & THROAT: Denies headache. Denies sore throat. Denies ear pain. CARDIOVASCULAR: Denies chest pain. Denies shortness of breath. Denies orthopnea. Denies PND. Denies palpitations. RESPIRATORY: Complains of cough. GASTROINTESTINAL: Denies abdominal pain. Denies diarrhea. Denies constipation. Denies nausea. Denies vomiting. MUSCULOSKELETAL: Denies myalgias. INTEGUMENTARY: Denies pruitis. Denies rash. NEUROLOGIC: Denies numbness. Denies tingling. Denies weakness. PSYCHIATRIC: Denies anxiety. Denies depression. ENDOCRINE: Denies fatigue. Denies weight change. Denies polydipsia. Denies polyurina. GENITOURINARY: Denies burning, hematuria or urgency with micturation. HEMATOLOGIC: Denies history of anemia. Denies bleeding. Blood pressure 98/59 heart rate 78 afebrile maintaining oxygen saturation on room air GENERAL: This is a 48-year-old female in no apparent distress at the time of my examination. HEENT: Head is atraumatic, normocephalic. Pupils are equal, round. Sclerae anicteric. Conjunctivae are clear. Mucous membranes of the mouth are moist. Neck is supple. There is no jugular venous distention. No carotid bruit is heard. LUNGS: Clear to auscultation no wheezes, rales or rhonchi. No chest wall tenderness is noted on palpation or with deep breathing. HEART: Regular rate and rhythm without murmurs, rubs or gallops. S1 and S2 heard. ABDOMEN: Soft, nontender. Bowel sounds are heard. No organomegaly noted. EXTREMITIES: No evidence of peripheral edema and no calf tenderness noted. VASCULAR: Radial and dorsalis pedis pulses palpated, no evidence of clubbing. NEUROLOGIC: Patient is awake, alert and oriented x3. ASSESSMENT Chest pain, pleuritic. An acute coronary event has been ruled out. Chest pain is associated with coughing and deep inspiration. History of breast cancer status post chemo/radiation and mastectomy COPD Chronic nicotine dependence PLAN An acute coronary event has been ruled out. Chest pain is atypical and respirophasic. Not related to angina. Ongoing medical management and evaluation. Echocardiogram has been obtained and will be reviewed. Smoking cessation recommended. Thank you kindly for this consultation. Nurse Practitioner note has been reviewed, I agree with a documented findings and plan of care. Patient was seen and examined. Past Medical History Past Medical History: Cancer, COPD, GERD/Reflux, Osteoarthritis (OA) Additional Past Medical History / Comment(s): Chronic bronchitis, bilateral breast cancer with mastectomies/chemo and radiation, arthritis in multiple joints, migraines. History of Any Multi-Drug Resistant Organisms: None Reported Past Surgical History: Breast Surgery Additional Past Surgical History / Comment(s): [facility] BREAST BX. BILATERAL MASTECTO MIES AND RIGHT SIDE LYMPH NODE DISSECTION, port now removed Past Anesthesia/Blood Transfusion Reactions: No Reported Reaction Additional Past Anesthesia/Blood Transfusion Reaction / Comment(s): NEVER RECEIVED ANESTHESIA. Smoking Status: Current every day smoker - Past Family History Father Family Medical History: Cancer Additional Family Medical History / Comment(s): Father at age 69yrs from lung to brain cancer Mother Family Medical History: Hyperlipidemia Medications and Allergies Home Medications Medication Instructions Recorded Confirmed Type Albuterol Inhaler [Ventolin Hfa 1 - 2 puff INHALATION RT-Q6H PRN 02/26/17 03/23/19 History Inhaler] HYDROcodone/APAP 5-325MG [[place] 1 tab PO Q6H PRN 05/15/17 03/23/19 History 5-325] ALPRAZolam [Xanax] 0.25 mg PO BID PRN 01/21/18 03/23/19 History Cholecalciferol [Vitamin D3] 1,000 unit PO DAILY 04/15/18 03/23/19 History Letrozole 2.5 mg PO DAILY 04/15/18 03/23/19 History Leuprolide Acetate [Lupron Depot] 11.25 mg IM Q90D 04/15/18 03/23/19 History QUEtiapine [SEROquel] 25 mg PO HS 07/15/18 03/23/19 History Allergies Allergy/AdvReac Type Severity Reaction Status Date / Time No Known Allergies Allergy Verified 03/23/19 11:37 Physical Exam Vitals: Vital Signs Temp Pulse Pulse Resp BP BP Pulse Ox 03/24/19 07:57 98 03/24/19 07:35 98.1 F 78 18 98/59 99 03/24/19 04:00 97.5 F L 62 18 137/81 96 03/23/19 23:45 98.3 F 89 18 106/68 97 03/23/19 23:29 94 18 03/23/19 20:31 94 03/23/19 20:19 96 98 03/23/19 20:00 94 18 03/23/19 19:30 98.3 F 94 18 109/74 97 03/23/19 15:10 97.5 F L 72 16 129/86 98 03/23/19 14:56 98.1 F 03/23/19 14:30 70 18 120/91 98 03/23/19 14:00 69 16 123/97 95 03/23/19 13:30 63 16 122/78 96 03/23/19 13:00 77 18 117/67 97 03/23/19 12:30 65 18 129/64 98 03/23/19 12:00 68 18 152/91 99 03/23/19 11:30 70 18 125/75 100 03/23/19 11:16 18 03/23/19 11:14 73 18 100 03/23/19 10:50 97.8 F 75 18 113/75 100 Intake and Output 03/23/19 03/24/19 03/24/19 22:59 06:59 14:59 Other: # Voids 1 1 Results 03/23/19 11:28 03/23/19 11:28 Cardiac Enzymes 03/23/19 03/23/19 03/23/19 Range/Units 11:28 11:28 17:43 AST 20 (14-36) U/L Troponin I <0.012 <0.012 (0.000-0.034) ng/mL 03/23/19 Range/Units 23:34 AST (14-36) U/L Troponin I <0.012 (0.000-0.034) ng/mL Coagulation 03/23/19 Range/Units 11:28 PT 9.5 (9.0-12.0) sec APTT 24.0 (22.0-30.0) sec Lipids 03/23/19 Range/Units 11:28 Triglycerides 141 (<150) mg/dL Cholesterol 209 H (<200) mg/dL HDL Cholesterol 34 L (40-60) mg/dL CBC 03/23/19 Range/Units 11:28 WBC 6.8 (3.8-10.6) k/uL RBC 4.49 (3.80-5.40) m/uL Hgb 14.0 (11.4-16.0) gm/dL Hct 42.7 (34.0-46.0) % Plt Count 247 (150-450) k/uL Comprehensive Metabolic Panel 03/23/19 Range/Units 11:28 Sodium 142 (137-145) mmol/L Potassium 4.1 (3.5-5.1) mmol/L Chloride 104 (98-107) mmol/L Carbon Dioxide 29 (22-30) mmol/L BUN 7 (7-17) mg/dL Creatinine 0.60 (0.52-1.04) mg/dL Glucose 99 (74-99) mg/dL Calcium 9.5 (8.4-10.2) mg/dL AST 20 (14-36) U/L ALT 17 (9-52) U/L Alkaline Phosphatase 73 (38-126) U/L Total Protein 6.7 (6.3-8.2) g/dL Albumin 3.8 (3.5-5.0) g/dL Current Medications Generic Name Dose Route Start Last Admin Trade Name Freq PRN Reason Stop Dose Admin Hydrocodone Bitart/Acetaminophen 1 each 03/23/19 16:34 [place] 5-325 PO Q6H PRN Pain Al Hydroxide/Mg Hydroxide 30 ml 03/24/19 04:16 Maalox PO Q4HR PRN GI Upset Albuterol Sulfate 2.5 mg 03/23/19 16:34 03/23/19 20:18 Ventolin Nebulized INHALATION 2.5 mg RT-Q6H PRN Administration Shortness Of Breath Alprazolam 0.25 mg 03/23/19 16:34 Xanax PO BID PRN Anxiety Aspirin 325 mg 03/24/19 09:00 Aspirin PO DAILY [facility] Cholecalciferol 1,000 unit 03/24/19 09:00 Vitamin D3 (25 Mcg = 1000 Iu) PO DAILY [facility] Guaifenesin 600 mg 03/23/19 21:00 03/23/19 21:09 Mucinex PO 600 mg Q12HR BRITNEY Administration Heparin Sodium (Porcine) 5,000 unit 03/23/19 21:00 03/23/19 21:10 Heparin SQ 5,000 unit Q12HR BRITNEY Administration Letrozole 2.5 mg 03/24/19 09:00 Femara PO DAILY [facility] Naproxen 500 mg 03/23/19 21:00 03/23/19 21:09 Naprosyn PO 500 mg BID BRITNEY Administration Nicotine 1 patch 03/24/19 09:00 Habitrol 14mg/24hr Patch TRANSDERM DAILY [facility] Nitroglycerin 0.4 mg 03/23/19 14:20 Nitrostat SUBLINGUAL Q5M PRN Chest Pain Pantoprazole Sodium 40 mg 03/24/19 04:16 03/24/19 06:16 Protonix PO 40 mg AC-BRKFST BRITNEY Administration Quetiapine Fumarate 25 mg 03/23/19 21:00 03/23/19 21:09 Seroquel PO 25 mg HS BRITNEY Administration Intake and Output 03/23/19 03/24/19 03/24/19 22:59 06:59 14:59 Other: # Voids 1 1 03/23/19 11:28 03/23/19 11:28
--- NOTE | 2019-03-24 12:01 | ECHOF ---
Referral Reason:chest pain MEASUREMENTS -------- HEIGHT: 162.6 cm WEIGHT: 86.2 kg BP: RVIDd: 3.4 cm (< 3.3) IVSd: 1.0 cm (0.6 - 1.1) LVIDd: 4.1 cm (3.9 - 5.3) LVPWd: 1.2 cm (0.6 - 1.1) IVSs: 1.4 cm LVIDs: 3.0 cm LVPWs: 1.2 cm LA Diam: 2.4 cm (2.7 - 3.8) Ao Diam: 2.8 cm (2.0 - 3.7) AV Cusp: 1.8 cm (1.5 - 2.6) LA Diam: 3.1 cm (2.7 - 3.8) MV EXCURSION: 20.824 mm (> 18.000) MV EF SLOPE: 96 mm/s (70 - 150) EPSS: 0.2 cm MV E Gene: 0.59 m/s MV DecT: 206 ms MV A Gene: 0.65 m/s MV E/A Ratio: 0.90 RAP: 5.00 mmHg RVSP: 37.24 mmHg FINDINGS -------- Sinus rhythm. This was a technically adequate study. The left ventricular size is normal. There is mild concentric left ventricular hypertrophy. Overa ll left ventricular systolic function is low-normal with, an EF between 50 - 55 %. The right ventricle is normal in size. The left atrial size is normal. Normal LA size by volume 22+/-6 ml/m2. The right atrial size is normal. There is mild aortic valve sclerosis. There is no evidence of aortic regurgitation. Mild mitral annular calcification present. Mild mitral regurgitation is present. Mild tricuspid regurgitation present. Right ventricular systolic pressure is normal at < 35 mmHg. There is no evidence of pulmonary hypertension. There is no pulmonic regurgitation present. The aortic root size is normal. There is no pericardial effusion. CONCLUSIONS -------- 1. Sinus rhythm. 2. This was a technically adequate study. 3. The left ventricular size is normal. 4. There is mild concentric left ventricular hypertrophy. 5. Overall left ventricular systolic function is low-normal with, an EF between 50 - 55 %. 6. The right ventricle is normal in size. 7. The left atrial size is normal. 8. Normal LA size by volume 22+/-6 ml/m2. 9. The right atrial size is normal. 10. There is mild aortic valve sclerosis. 11. Mild mitral annular calcification present. 12. Mild mitral regurgitation is present. 13. Mild tricuspid regurgitation present. 14. Right ventricular systolic pressure is normal at < 35 mmHg. 15. There is no evidence of pulmonary hypertension. 16. There is no pulmonic regurgitation present. 17. The aortic root size is normal. 18. There is no pericardial effusion. DISC PAD PLATE FILLER: Bre Smith RDCS
--- NOTE | 2019-03-24 12:31 | P.DS ---
Providers Date of admission: 03/23/19 14:31 Expected date of discharge: 03/24/19 Attending physician: Evsin Moser MD Consults: 03/23/19 14:20 Consult Physician Urgent Consulting Provider: [facility] Consult Reason/Comments: Chest pain Do you want consulting provider notified?: Yes Primary care physician: Kenneth Bridges, DO Hospital Course: Discharge diagnoses Atypical chest pain Costochondritis COPD without acute exacerbation Acute bronchitis with pleurisy hyperlipidemia History of breast cancer status post chemoradiation and mastectomy Chronic nicotine dependence The patient is a 48-year-old obese female that presented with atypical chest painin observation status to rule out ACS, EKG revealed sinus mechanism without any suggestion of acute ischemia, initial and subsequent troponins were less than 0.012. The patient is A MILDLY ELEVATED D-DIMER at .69 Subsequent CTA of the chest was negative for PE. Echocardiogram was ordered and indicated a preserved LVEF of 50-55%. Lipid panel showed elevated LDL 147 the patient was started on statin regimen on discharge. Patient was seen and evaluated by cardiology determined that her discomfort was not due to cardiac etiology and likely secondary to costochondritis/acute bronchitis with pleurisy she was started on NSAIDs with naproxen and subsequently discharged home in stable condition and instructed to follow up with her PCP. This discharge process took approximately 30 minutes. Focused exam Cardiovascular: Regular rate rhythm no murmurs rubs or gallops Chest: Clear to also patient bilaterally tender to palpation over the costosternal junctions Patient Condition at Discharge: Good Plan - Discharge Summary Discharge Rx Participant: No New Discharge Prescriptions: New guaiFENesin [Mucinex] 600 mg PO Q12HR #30 tablet.er Naproxen [Naprosyn] 500 mg PO BID #28 tab Continue Albuterol Inhaler [Ventolin Hfa Inhaler] 1 - 2 puff INHALATION RT-Q6H PRN PRN Reason: Shortness Of Breath HYDROcodone/APAP 5-325MG [[place] 5-325] 1 tab PO Q6H PRN PRN Reason: Pain ALPRAZolam [Xanax] 0.25 mg PO BID PRN PRN Reason: Anxiety Leuprolide Acetate [Lupron Depot] 11.25 mg IM Q90D Letrozole 2.5 mg PO DAILY Cholecalciferol [Vitamin D3 (25 Mcg = 1000 Iu)] 1,000 unit PO DAILY QUEtiapine [SEROquel] 25 mg PO HS Discharge Medication List Albuterol Inhaler [Ventolin Hfa Inhaler] 1 - 2 puff INHALATION RT-Q6H PRN [History] HYDROcodone/APAP 5-325MG [[place] 5-325] 1 tab PO Q6H PRN 05/15/17 [History] ALPRAZolam [Xanax] 0.25 mg PO BID PRN 01/21/18 [History] Cholecalciferol [Vitamin D3 (25 Mcg = 1000 Iu)] 1,000 unit PO DAILY 04/15/18 [History] Letrozole 2.5 mg PO DAILY 04/15/18 [History] Leuprolide Acetate [Lupron Depot] 11.25 mg IM Q90D 04/15/18 [History] QUEtiapine [SEROquel] 25 mg PO HS 07/15/18 [History] Naproxen [Naprosyn] 500 mg PO BID #28 tab 03/24/19 [Rx] guaiFENesin [Mucinex] 600 mg PO Q12HR #30 tablet.er 03/24/19 [Rx] Follow up Appointment(s)/Referral(s): Nonstaff,Physician [REFERRING] - 1-2 days Discharge Disposition: HOME SELF-CARE
== END 2019-03-24 12:41 | disposition home or self-care (01) ==
LOC: EC 10:46 → 1SOBS 14:31
PROVIDERS: ADMIT Family Medicine; ATTEND Family Medicine
DX: R07.89 Other chest pain (principal); J44.0 Chronic obstructive pulmonary disease with (acute) lower respiratory infection; J20.9 Acute bronchitis, unspecified; M94.0 Chondrocostal junction syndrome [Tietze]; R79.89 Other specified abnormal findings of blood chemistry; R09.1 Pleurisy; G43.909 Migraine, unspecified, not intractable, without status migrainosus; K21.9 Gastro-esophageal reflux disease without esophagitis; F41.9 Anxiety disorder, unspecified; F32.9 Major depressive disorder, single episode, unspecified; E66.01 Morbid (severe) obesity due to excess calories; Z68.32 Body mass index [BMI] 32.0-32.9, adult; M13.0 Polyarthritis, unspecified; F17.200 Nicotine dependence, unspecified, uncomplicated; E78.5 Hyperlipidemia, unspecified; Z79.811 Long term (current) use of aromatase inhibitors; Z79.899 Other long term (current) drug therapy; Z92.3 Personal history of irradiation; Z92.21 Personal history of antineoplastic chemotherapy; Z85.3 Personal history of malignant neoplasm of breast; Z90.13 Acquired absence of bilateral breasts and nipples; Z80.8 Family history of malignant neoplasm of other organs or systems; Z83.49 Family history of other endocrine, nutritional and metabolic diseases; Z80.1 Family history of malignant neoplasm of trachea, bronchus and lung
CPT/HCPCS: 93005 ×2; 96372 ×2; 99285; 36415; 94640; 94760; 93306; 85379; 80061; 80053; 83735; 84484; 85025; 85610; 85730; 71046; 71275; G0378 ×2; J1644 ×2; Q9967

== ENCOUNTER → 2019-04-10 | Outpatient (CLI) | payer OTHER ==
[~2019-04-10] MED LIST changes: +LEUPROLIDE ACET 11.25MG SYRGKIT IM NR; -LEUPROLIDE ACET 11.25MG SYRGKIT IM ONE
[2019-04-10 13:05] VITALS: BP 130/89; PULSE 76; RESP 16; TEMP 97.5
== END | disposition home or self-care (01) ==
LOC: PROCWHC3 12:38
PROVIDERS: ATTEND Internal Medicine Hematology & Oncology
DX: Z51.11 Encounter for antineoplastic chemotherapy (principal); C50.411 Malignant neoplasm of upper-outer quadrant of right female breast
CPT/HCPCS: 96402; J1950

== ENCOUNTER → 2019-11-05 | Outpatient (CLI) | payer OTHER ==
[2019-11-05 13:29] VITALS: BP 137/84; PULSE 88; RESP 20
== END | disposition home or self-care (01) ==
LOC: PROCWHC3 13:11
PROVIDERS: ATTEND Internal Medicine Hematology & Oncology
DX: C50.411 Malignant neoplasm of upper-outer quadrant of right female breast (principal)
CPT/HCPCS: 96372; J1950

== ENCOUNTER → 2019-11-18 | Outpatient (CLI) | payer OTHER ==
--- NOTE | 2019-11-19 10:30 | USB ---
Reason for exam: clinical finding. History: Patient has history of breast cancer at age 46 and has history of high-risk lesion on a previous biopsy at age 46. Family history of breast cancer in mother at age 63. High risk MR breast biopsy w/vad LEFT of the left breast, March 19, 2017. US discontinued breast bx LT of the left breast, February 26, 2017. Malignant US biopsy breast VAD RT of the right breast, January 30, 2017. Malignant US biopsy breast add'l VAD RT of the right breast, January 30, 2017. Mastectomy of both breasts. Indicated problem(s): pain in the right breast. Physical Findings: Nurse did not find any significant physical abnormalities on exam. US Breast RT Right complete breast ultrasound includes all four quadrants, the retroareolar region and axilla. Finding demonstrates a 3.9 x 1.1 x 5.5cm fluid collection at 6-9 o'clock. Slightly larger compared to previous. These results were verbally communicated with the patient and result sheet given to the patient on 11/18/19. ASSESSMENT: Probably benign, BI-RAD 3 RECOMMENDATION: Surgical consultation of the right breast. Patient request to scheduled follow up appointment with Dr. Vo. Called office with mammographic findings and has scheduled an appointment for the patient for 12/04/19 at 11:[address] Vo. PRELIMINARY REPORT CALLED AND FAXED TO DR. VO ON 11/19/19.
== END | disposition home or self-care (01) ==
LOC: RADUSWWP 10:17
PROVIDERS: ATTEND Surgery
DX: N64.4 Mastodynia (principal)

== ENCOUNTER → 2019-12-04 | Outpatient (CLI) | payer OTHER ==
[2019-12-04 15:34] VITALS: BP 120/78; PULSE 93; RESP 18; TEMP 98.1
--- NOTE | 2019-12-04 16:07 | P.PN ---
Subjective Progress Note Date: 12/04/19 Principal diagnosis: bilateral breast cancer; Right breast [id number]-,ER+/Pr+/Stage IIA; left breast TisNoMo Stage0 The patient is a 49-year-old white female who is status post bilateral mastectomy performed in April 2017. This was done for a right breast 3.2 cm invasive ductal cancer, T2N1mi M0 right breast cancer and on the left side she was noted to have a TisNoM0 breast cancer. Postprocedure the patient did receive radiation therapy to the right chest wall and axilla. The patient started with bilateral breast reconstruction however developed an infection on the left side and both expanders were removed and she did not proceed with reconstruction. She did receive chemotherapy, and Herceptin and as noted had radiation therapy to the right chest wall. She is presently on Letrozole. The patient has difficulty with lifting her right arm, and swelling under her arm, and pain in the right chest wall. She was seen by Physical therapy, she stopped seeing him in one year ago. It did have some help when she saw them. The pain, swelling, and difficulty with mobility started approximately 2 years ago. The patient had genetic testing done which was negative. The patient has had some swelling of her right upper extremity and has been given a sleeve to help manage lymphedema. She needs a new sleeve at this time. The patient had an MRI of the chest in August 2018 this revealed benign findings linear enhancement of the right chest wall without T1 or T2 corresponding mass. The patient had an area of concern and CT of the thorax was recommended. CT was performed on 42 619 this showed no evidence of pulmonary nodular mass. [place] [id number] which did not reveal any acute displaced rib fracture. Costochondral calcifications were noted. The patient states that she has persistent right-sided chest wall pain which is a 6 out of 10 at this time. The pain occurs daily. It is worse with movement. Stretching will sometimes help it go away. Again she has had physical therapy with some relief in the past. So complains of some swelling in the right axilla which she says is the same in size. Aisha underwent an ultrasound of the right chest wall: This revealed a 3.9 x 5.5 cm fluid collection at the 6 and 9 o'clock position. This is felt to be probably benign BIRADS 3 Family History: Father: Lung and brain cancer Paternal aunt: Breast cancer metastatic to the brain, (age dx. in early 50's) mother: breast cancer Hormonal History: menarche:15 : 2, 2 children, breast fed: no, first born at 20 menopause: 46 BCP: 1 year hormones: none Past surgical history: 1. Bilateral mastectomy with bilateral electronic scale subassembler placement which was subsequently removed, bilateral sentinel node biopsies Past Medical History: migraines COPD Social History: smoke: 1/2 PPD/30 years alcohol: none drugs: Marijuana candy occasionally to treat migraines - Constitutional Constitutional: Denies chills, Denies fever - EENT Eyes: Ears: Ears, nose, mouth and throat: Reports headache - Breasts Breasts: as per HPI - Cardiovascular Cardiovascular: Reports shortness of breath, Denies chest pain - Respiratory Comment: COPD, smoker - Gastrointestinal Gastrointestinal: Denies nausea, Denies vomiting - Genitourinary (Female) Genitourinary: Denies dysuria, Denies hematuria - Menstruation Menstruation: Reports postmenopausal - Musculoskeletal Comment: arthritis decreased mobility right arm osteoporosis - Integumentary Integumentary: Denies pruritus, Denies rash - Neurological Comment: bilateral numb finger tips Neurological: Denies numbness, Denies weakness - Psychiatric Psychiatric: Reports anxiety - Endocrine Endocrine: Reports weight change, Denies fatigue - Hematologic/Lymphatic Comment: none - Allergic/Immunologic Comment: none Objective - Vital Signs Vital signs: Vital Signs Temp 98.1 F 12/04/19 15:31 Pulse 93 12/04/19 15:31 Resp 18 12/04/19 15:31 BP 120/78 12/04/19 15:31 Pulse Ox 95 12/04/19 15:31 Intake & Output 12/03/19 12/04/19 12/04/19 18:59 06:59 18:59 Weight 90.718 kg - Exam BMI 34.3 - Constitutional General appearance: Present: obese - EENT Eyes: Present: EOMI ENT: Present: hearing grossly normal - Neck Neck: Present: normal ROM - Respiratory Details: few wheezez right lung base Respiratory: right: wheezing, left: CTA - Cardiovascular Rhythm: regular Heart sounds: normal: S1, S2 - Gastrointestinal General gastrointestinal: Present: normal bowel sounds, soft - Integumentary Integumentary: Present: normal turgor - Musculoskeletal Musculoskeletal: Present: gait normal - Psychiatric Psychiatric: Present: A&O x's 3, appropriate affect, intact judgment & insight - Additional findings Additional findings: Breast exam: bilateral chest wall examination. Right chest wall: Scar tissue and radiation changes from prior mastectomy and radiation therapy, redundant tissue especially in the axillary area somewhat tender to palpation Left chest wall: Redundant tissue medially and laterally at the mastectomy site no evidence of recurrent cancer on examination and chest wall Right axilla: No adenopathy of concern Left axilla: No adenopathy of concern Assessment and Plan Assessment: Impression: 1. Bilateral mastectomies [place] T2 cancer, Tis left side 2. Chronic right chest wall pain and nodularity 3. Asymmetry of the chest was related to prior surgery 4. COPD 5. Migraines 6. No evidence of recurrent cancer at this time 7. Patient continues on O's office/Lupron shots by Dr. Mixon Plan: 1. Medical clearance 2. Ultrasound right chest wall performed and reveals some fluid collection 3. Patient wishes surgical procedure for redundant tissue bilateral chest matos to be removed CC: [facility]
== END | disposition home or self-care (01) ==
LOC: WWCWWP 14:43
PROVIDERS: ATTEND Surgery
DX: Z53.9 Procedure and treatment not carried out, unspecified reason (principal)

== ENCOUNTER → 2019-12-25 | Outpatient (CLI) | payer OTHER ==
--- NOTE | 2019-12-27 13:03 | NM ---
EXAMINATION TYPE: NM bone scan whole body DATE OF EXAM: 12/25/2019 COMPARISON: Correlation CT chest 03/23/2019 HISTORY: 49-year-old female M81 osteoporosis. TECHNIQUE: Delayed whole-body scanning was performed following the injection of 21.9 mCi Tc 99m MDP. Images acquired 3 hours post injection. FINDINGS: Activity at the left antecubital fossa likely relating to the injection site. Some degenerative trace r activity at the knees and the hindfoot/midfoot regions. Some degenerative tracer activity along the mid to lower thoracic spine especially towards the right. No suspicious distribution of activity to suggest osseous metastatic disease. Some vague increased uptake in the region of the right breast could represent residual breast tissue or some inflammatory change and compatible correlated clinically. IMPRESSION: 1. No scintigraphic evidence for osseous metastatic disease. 2. Some degenerative tracer activity mid to lower thoracic spine. 3. Vague increased uptake in the region of the right breast could represent residual breast tissue or some inflammatory change. Clinically correlate.
== END | disposition home or self-care (01) ==
LOC: RADNMMAIN 09:43
PROVIDERS: ATTEND Internal Medicine Hematology & Oncology
DX: C50.411 Malignant neoplasm of upper-outer quadrant of right female breast (principal); M81.0 Age-related osteoporosis without current pathological fracture
CPT/HCPCS: 78306; A9503

== ENCOUNTER → 2020-02-04 | Outpatient (CLI) | payer OTHER ==
[2020-02-04 11:23] VITALS: BP 116/78; PULSE 96; RESP 16; TEMP 98.3
== END | disposition home or self-care (01) ==
LOC: PROCWHC3 11:06
PROVIDERS: ATTEND Internal Medicine Hematology & Oncology
DX: C50.411 Malignant neoplasm of upper-outer quadrant of right female breast (principal)
CPT/HCPCS: 96401; J1950

== ENCOUNTER 2020-03-29 12:55 | Observation (INO) | payer OTHER ==
[2020-03-28 09:47] VITALS: BMI 36.0
[~2020-03-29 12:55] MED LIST changes: +DEXAMETHASONE SOD PHOSPHATE 10 MG/ML 1 ML VIAL IV ONE; +HEPARIN SODIUM,PORCINE 5,000 UNIT/ML 1 ML VIAL SQ ONE; +HYDROmorphone 0.5 MG/0.5 ML SYRINGE IVP PRN; -LEUPROLIDE ACET 11.25MG SYRGKIT IM NR; +LIDOCAINE 1% (10MG/ML) FOR IV START INTRADERMA PRN; +MIDAZOLAM 2 MG/2 ML VIAL IV PRN; +ONDANSETRON 4 MG/2 ML VIAL IVP ONE; +Pre Op ABX Message 1 EACH MISC MISCELLANE ONE
[2020-03-29] MEDS: LACTATED RINGERS 1,000 ML IV SCH (13:55)
--- NOTE | 2020-03-29 14:57 | P.PN ---
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 This was done for a right breast 3.2 cm invasive ductal cancer, T2N1mi M0 right breast cancer and on the left side she was noted to have a TisNoM0 breast cancer. Postprocedure the patient did receive radiation therapy to the right chest wall and axilla. The patient started with bilateral breast reconstruction however developed an infection on the left side and both expanders were removed and she did not proceed with reconstruction. She did receive chemotherapy, and Herceptin and as noted had radiation therapy to the right chest wall. She is presently on Letrozole. The patient has difficulty with lifting her right arm, and swelling under her arm, and pain in the right chest wall. She was seen by Physical therapy, she stopped seeing him in one year ago. It did have some help when she saw them. T susana pain, swelling, and difficulty with mobility started approximately 2 years ago. The patient had genetic testing done which was negative. The patient has had some swelling of her right upper extremity and has been given a sleeve to help manage lymphedema. She needs a new sleeve at this time. The patient had an MRI of the chest in August 2018 this revealed benign findings linear enhancement of the right chest wall without T1 or T2 corresponding mass. The patient had an area of concern and CT of the thorax was recommended. CT was performed on 42 619 this showed no evidence of pulmonary nodular mass. [place] [address] which did not reveal any acute displaced rib fracture. Costochondral calcifications were noted. The patient states that she has persistent right-sided chest wall pain which is a 6 out of 10 at this time. The pain occurs daily. It is worse with movement. Stretching will sometimes help it go away. Again she has had physical therapy with some relief in the past. So complains of some swelling in the right axilla which she says is the same in size. Aisha underwent an ultrasound of the right chest wall: This revealed a 3.9 x 5.5 cm fluid collection at the 6 and 9 o'clock position. This is felt to be probably benign BIRADS 3 Family History: Father: Lung and brain cancer Paternal aunt: Breast cancer metastatic to the brain, (age dx. in early 50's) mother: breast cancer Hormonal History: menarche:15 : 2, 2 children, breast fed: no, first born at 20 menopause: 46 BCP: 1 year hormones: none Past surgical history: 1. Bilateral mastectomy with bilateral physician internist placement which was subsequently removed, bilateral sentinel node biopsies Past Medical History: migraines COPD Social History: smoke: 1/2 PPD/30 years alcohol: none drugs: Marijuana candy occasionally to treat migraines - Constitutional Constitutional: Denies chills, Denies fever - EENT Eyes: Ears: Ears, nose, mouth and throat: Reports headache - Breasts Breasts: as per HPI - Cardiovascular Cardiovascular: Reports shortness of breath, Denies chest pain - Respiratory Comment: COPD, smoker - Gastrointestinal Gastrointestinal: Denies nausea, Denies vomiting - Genitourinary (Female) Genitourinary: Denies dysuria, Denies hematuria - Menstruation Menstruation: Reports postmenopausal - Musculoskeletal Comment: arthritis decreased mobility right arm osteoporosis - Integumentary Integumentary: Denies pruritus, Denies rash - Neurological Comment: bilateral numb finger tips Neurological: Denies numbness, Denies weakness - Psychiatric Psychiatric: Reports anxiety - Endocrine Endocrine: Reports weight change, Denies fatigue - Hematologic/Lymphatic Comment: none - Allergic/Immunologic Comment: none Objective - Vital Signs Vital signs: Vital Signs Temp 98.4 F 03/29/20 13:39 Pulse 73 03/29/20 13:39 Resp 16 03/29/20 13:39 BP 177/96 03/29/20 13:39 Pulse Ox 97 03/29/20 13:39 Intake & Output 03/28/20 03/29/20 03/29/20 18:59 06:59 18:59 Weight 95.254 kg 95.4 kg - Exam BMI 36.1 - Constitutional General appearance: Present: obese - EENT Eyes: Present: EOMI ENT: Present: hearing grossly normal - Neck Neck: Present: normal ROM - Respiratory Respiratory: bilateral: CTA - Cardiovascular Heart sounds: normal: S1, S2 - Integumentary Integumentary Comment(s): bilateral redundant skin at mastectomy sites Integumentary: Present: normal turgor - Psychiatric Psychiatric: Present: A&O x's 3, appropriate affect, intact judgment & insight Assessment and Plan Assessment: Impression: bilateral redundant skin at mastectomy sites radiation changes right chest wall Plan: 1. revision of bilateral mastectomy incisions, patient initially wanted to have skin left in case she wanted reconstruction. At this time she does not want reconstruction. She wishes the excess skin to be removed. She understands the risk and benefits and wishes to proceed.
[2020-03-29] MEDS ORDERED: HYDROmorphone (PF) 1 MG/ML ONE (16:19)
[2020-03-29] MEDS ORDERED: MIDAZOLAM 2 MG/2 ML VIAL ONE (16:19)
[2020-03-29] MEDS ORDERED: PHENYLEPHRINE-0.9% NACL SYG 1 MG/10 ML SYRINGE ONE (16:19)
[2020-03-29] MEDS ORDERED: fentaNYL (PF) 50 MCG/ML 2 ML AMP ONE (16:19)
[2020-03-29] MEDS ORDERED: PROPOFOL 10 MG/ML 20 ML VIAL IV ONE (16:19)
[2020-03-29] MEDS ORDERED: ONDANSETRON 4 MG/2 ML VIAL IVP PRN (18:02)
[2020-03-29] MEDS ORDERED: NALOXONE 0.4 MG/ML 1 ML VIAL IV PRN (18:02)
--- NOTE | 2020-03-29 18:02 | P.OP ---
Date of Procedure: 03/29/20 Preoperative Diagnosis: Bilateral chest wall redundant tissue after bilateral mastectomy in 2017 Postoperative Diagnosis: Same Procedure(s) Performed: ReVision of incisions chest wall Anesthesia: HEAVEN Surgeon: Pebbles Vo Estimated Blood Loss (ml): 35 IV fluids (ml): 800 Pathology: other (Residual subcutaneous tissue and skin left chest wall, subcutaneous tissue and skin right chest wall) Condition: stable Disposition: floor Indications for Procedure: The patient is a 49-year-old white female who in 2017 underwent a bilateral mastectomy with subpectoral service restorer emergency placement. The implant on the left became infected and both expanders were removed. At this time she does not want reconstruction and she wishes the redundant skin to be removed from the left chest wall and on the right chest wall there is redundant axillary tissue and she wishes this to be addressed. Operative Findings: Redundant skin left chest wall and axillary skin right chest wall Description of Procedure: The patient is a 41-year-old white female status post bilateral mastectomy in 2017. She underwent bilateral service restorer emergency placement and the left service restorer emergency became infected. They were removed and she did not pursue reconstruction. She wishes revision of the incision on the left chest wall and the right chest wall axillary area to be revised . She had radiation to the right chest wall and therefore we are not going to revise the entire incision. The left chest wall was approached initially. The excision of the incision on the left was performed with skin and redundant subcutaneous tissue removed. Following this the wound was evaluated for hemostasis. After we were assured that hemostasis was attained Surgicel in powder form was placed. The Incision was 19 cm in length. A RK drain was placed. The subcutaneous tissue was closed using 3-0 Vicryl suture. The skin was closed using jamila. The patient tolerated this portion of the procedure in stable condition. On the right chest wall secondary to the fact that she had radiation we discussed that we will address the area of the dog ear near the axillary tail. A V-Y advancement flap was developed. The lateral limbs of the flap which 5 cm the axillary tissue was advanced was brought up into the area of the defect. This was secured using 3-0 Vicryl suture followed by a nylon suture. The patient tolerated the procedure in stable condition all instrument and sponge counts were correct at the end of the case.
[2020-03-29] MEDS ORDERED: ONDANSETRON 4 MG/2 ML VIAL IVP ONE (18:35)
[2020-03-29] MEDS ORDERED: LACTATED RINGERS 1,000 ML IV ONE (19:00)
[2020-03-29] MEDS ORDERED: HEPARIN SODIUM,PORCINE 5,000 UNIT/ML 1 ML VIAL SQ SCH (21:00)
[2020-03-29] MEDS ORDERED: ALBUTEROL NEBULIZED 2.5 MG/3 ML INHALATION PRN (21:20)
[2020-03-29] MEDS ORDERED: ALPRAZolam 0.25 MG TAB PO PRN (21:20)
[2020-03-29] MEDS ORDERED: CYCLOBENZAPRINE 5 MG TAB PO PRN (21:20)
[2020-03-29] MEDS ORDERED: QUEtiapine 25 MG TAB PO SCH (21:30)
[2020-03-29] MEDS: HYDROmorphone 1 MG/ML 1 ML SYRINGE IV PRN (22:42)
[2020-03-29] MEDS: DEXTROSE 5%-0.45% NACL 1,000 ML IV SCH (22:42)
[2020-03-29] MEDS: CALCIUM CARBONATE 500 MG CHEWABLE PO PRN (22:49)
--- NOTE | 2020-03-29 23:03 | P.CONS ---
History of Present Illness - Reason for Consult Consult date: 03/29/20 Medical management Requesting physician: Pebbles Vo - Chief Complaint Breast surgery - History of Present Illness Consultation: This is a pleasant 49-year-old patient was chronic stable medical conditions include COPD, GERD, osteoarthritis, lateral breast cancer 2018 treated with mastectomy and chemotherapy and radiation. Anxiety depression. Patient underwent surgery for bilateral chest wall redundant tissue after bilateral mastectomy. In the past patient's had implants in both the breasts. In the left from became infected and the both expanders removed. The surgeries to remove the redundant skin. Some pain is present. No nausea vomiting. Review of systems: GEN.: Tired EYES: None HEENT: None NECK: None RESPIRATORY: Baseline occasional wheezing with cough CARDIOVASCULAR: None GASTROINTESTINAL: None GENITOURINARY: None MUSCULOSKELETAL: Joint pains] LYMPHATICS: None HEMATOLOGICAL: None PSYCHIATRY: None NEUROLOGICAL: None Past medical history to include: COPD, GERD, osteoarthritis, chronic bronchitis, bilateral breast cancer 2018 with mastectomy and chemoradiation, migraines. Anxiety depression. Social history: Lives with her stepfather. Smokes about half a pack a day for close to 30 years. No alcohol. Does occasional heritable marijuana. Physical examination: VITAL SIGNS: 96.1, 75, 16, 130/77, 95% on 3 L GENERAL: BMI 36.1, laying in bed, awake. EYES: Pupils equal. Conjunctiva normal. HEENT: External appearance of nose and ears normal, oral cavity grossly normal. NECK: JVD not raised; masses not palpable. HEART: First and second heart sounds are normal; no edema. LUNGS: Respiratory rate increased, decreased breath sounds CHEST wall: Dressing across the chest wall. ABDOMEN: Soft, nontender, liver spleen not palpable, no masses palpable. PSYCH: Alert and oriented x3; mood and affect normal. NEUROLOGICAL: Cranial nerves grossly intact; no facial asymmetry, power and sensation grossly intact. LYMPHATICS: No lymph nodes palpable in the axilla and neck Assessment: -Patient status post surgery for removal of redundant chest wall tissue forming previous bilateral mastectomy and after patient's expanders were removed -COPD in a current smoker -Chronic nicotine dependence patient cigarette smoker -GERD -Anxiety depression otherwise specified Plan: Home medications resumed. Care was discussed with the patient. Given a nicotine patch. Patient should follow with the family doctor per discharge. Thank you Dr. Brown Cotto Past Medical History Past Medical History: Cancer, COPD, GERD/Reflux, Osteoarthritis (OA) Additional Past Medical History / Comment(s): Chronic bronchitis, bilateral breast cancer 2018 with mastectomies/chemo and radiation, arthritis in multiple joints, migraines. History of Any Multi-Drug Resistant Organisms: None Reported Past Surgical History: Breast Surgery Additional Past Surgical History / Comment(s): [facility] BREAST BX. BILATERAL MASTECTOMIES AND RIGHT SIDE LYMPH NODE DISSECTION, port now removed Past Anesthesia/Blood Transfusion Reactions: No Reported Reaction Additional Past Anesthesia/Blood Transfusion Reaction / Comm: NEVER RECEIVED ANESTHESIA. Smoking Status: Current every day smoker - Past Family History Father Family Medical History: Cancer Additional Family Medical History / Comment(s): Father at age 69yrs from lung to brain cancer Mother Family Medical History: Hyperlipidemia Medications and Allergies Home Medications Medication Instructions Recorded Confirmed Type Albuterol Inhaler (Mhu) [Ventolin 1 - 2 puff INHALATION RT-Q6H PRN 02/26/17 03/28/20 History Hfa Inhaler (Mhu)] HYDROcodone/APAP 5-325MG [Tiona 1 tab PO Q6H PRN 05/15/17 03/28/20 History 5-325] Letrozole 2.5 mg PO DAILY 04/15/18 03/28/20 History Leuprolide Acetate [Lupron Depot] 11.25 mg IM Q90D 04/15/18 03/28/20 History ALPRAZolam [Xanax] 0.25 mg PO HS PRN 07/30/19 03/28/20 History Alendronate Sodium [Fosamax] 70 mg PO WEEKLY 12/04/19 03/28/20 History Cyclobenzaprine [Flexeril] 5 mg PO TID PRN 02/25/20 03/28/20 History QUEtiapine [SEROquel] 25 mg PO HS 02/25/20 03/28/20 History Allergies Allergy/AdvReac Type Severity Reaction Status Date / Time No Known Allergies Allergy Verified 03/29/20 13:32 Physical Exam Vitals: Vital Signs Temp Pulse Pulse Resp BP Pulse Ox 03/29/20 20:35 75 16 130/77 95 03/29/20 20:05 41 L 16 96/72 95 03/29/20 19:50 82 16 126/75 91 L 03/29/20 19:35 85 16 127/71 93 L 03/29/20 19:20 96.1 F L 81 16 125/77 90 L 03/29/20 18:45 80 18 105/74 92 L 03/29/20 18:30 80 16 112/80 92 L 03/29/20 18:23 86 18 112/80 98 03/29/20 18:08 97.3 F L 79 16 90/57 96 03/29/20 13:39 98.4 F 73 16 177/96 97 Intake and Output 03/29/20 03/29/20 03/29/20 06:59 14:59 22:59 Intake Total 100 900 Output Total 35 Balance 100 865 Intake: IV 100 900 Output: Estimated Blood Loss 35 Other: Weight 95.4 kg
[2020-03-30] MEDS: HEPARIN SODIUM,PORCINE 5,000 UNIT/ML 1 ML VIAL SQ SCH ×2 (00:38→08:59)
[2020-03-30] MEDS: HYDROmorphone 1 MG/ML 1 ML SYRINGE IV PRN ×2 (02:52→06:31)
[2020-03-30] MEDS: DEXTROSE 5%-0.45% NACL 1,000 ML IV SCH ×2 (04:42→12:01)
[2020-03-30] MEDS: CALCIUM CARBONATE 500 MG CHEWABLE PO PRN (04:47)
[2020-03-30] MEDS: NICOTINE 14MG/24HR PATCH TRANSDERM SCH ×2 (04:53→09:00)
[2020-03-30] MEDS: LACTATED RINGERS 1,000 ML IV SCH (05:01)
[2020-03-30 05:58] LABS: Basophils % (A) 0 %; Eosinophils # (A) 0.2 k/uL (0-0.7); Eosinophils % (A) 2 %; Lymphocytes # (A) 1.4 k/uL (1.0-4.8); Lymphocytes % (A) 13 %; MCH 31.6 pg (25.0-35.0); MCHC 32.4 g/dL (31.0-37.0); MCV 97.3 fL (80.0-100.0); Mean Platelet Volume 9.9; Monocytes # (A) 0.3 k/uL (0-1.0); Monocytes % (A) 3 %; Neutrophils # (A) 8.7 k/uL (1.3-7.7); Neutrophils % (A) 81 %; Platelet Count 148 k/uL (150-450); RBC 4.11 m/uL (3.80-5.40); WBC 10.7 k/uL (3.8-10.6)
[2020-03-30] MEDS ORDERED: LETROZOLE 2.5 MG TAB PO SCH (09:00)
[2020-03-30 09:03] VITALS: BP 101/66; PULSE 98; RESP 18; TEMP 98.2
[2020-03-30] MEDS: HYDROcodone/APAP 5-325MG 1 EACH TAB PO PRN ×2 (09:20→12:16)
--- NOTE | 2020-03-30 11:30 | P.PN ---
Subjective Progress Note Date: 03/30/20 Principal diagnosis: redundant bilateral breast tissue/postop day #1 bilateral revision mastectomy incisions bilateral breast cancer; Right breast [id number]-,ER+/Pr+/Stage IIA; left breast TisNoMo Stage0 status post bilateral skin sparing mastectomies 2016 Bobbi is a 49-year-old white female status post bilateral skin sparing mastectomies in 2017. She underwent immediate notary public placement but developed an infection on the left side with the expanders removed. She did not proceed to reconstruction again. At this time she wished bilateral revision of scars. She is postop day #1 from bilateral mastectomy scar revision. Post procedure she is doing well without any complaints. Objective - Vital Signs Vital signs: Vital Signs Temp 98.2 F 03/30/20 08:35 Pulse 98 03/30/20 08:35 Resp 18 03/30/20 08:35 BP 101/66 03/30/20 08:35 Pulse Ox 93 L 03/30/20 08:35 Intake & Output 03/29/20 03/30/20 03/30/20 18:59 06:59 18:59 Intake Total 1000 Output Total 35 615 16 Balance 965 -615 -16 Weight 95.4 kg 95.4 kg Intake: IV 1000 Output: Drainage 15 15 Left Chest 15 15 Urine 600 1 Estimated Blood Loss 35 Other: # Voids 1 - Exam BMI 36.1 - Constitutional General appearance: Present: obese - EENT Eyes: Present: EOMI ENT: Present: hearing grossly normal - Neck Neck: Present: normal ROM - Respiratory Respiratory: bilateral: CTA - Cardiovascular Rhythm: regular Heart sounds: normal: S1, S2 - Integumentary Integumentary Comment(s): Incisions clean and dry bilateral RK drain on left serous - Psychiatric Psychiatric: Present: A&O x's 3, appropriate affect, intact judgment & insight - Labs CBC & Chem 7: 03/30/20 05:46 Labs: Abnormal Lab Results - Last 24 Hours (Table) 03/30/20 Range/Units 05:46 WBC 10.7 H (3.8-10.6) k/uL Plt Count 148 L (150-450) k/uL Neutrophils # 8.7 H (1.3-7.7) k/uL Assessment and Plan Assessment: Impression: bilateral redundant skin at mastectomy sites/postop day #1 revision of scars mastectomy sites radiation changes right chest wall Plan: 1. Discharge home 2. Teach drain care 3. Follow-up Dr. Dasilva in 1 week
--- NOTE | 2020-03-30 11:33 | P.DS ---
Providers Date of admission: 03/30/20 04:05 Attending physician: Pebbles Vo Consults: 03/29/20 18:04 Consult Physician Routine Consulting Provider: Tan Villalpando Consult Reason/Comments: medical managment Do you want consulting provider notified?: Yes Primary care physician: Stated None Hospital Course: Bobbi is a 49-year-old white female postop day #1 bilateral mastectomy scar revision. She is doing well at this time with no complaints. She will be discharged home to be followed as an outpatient. Of importance is the fact that the patient is on a pain regimen receiving [place], she states 60 a month. She states that she does not have any for 2 days but is planning to bridge this with extra strength Tylenol. She will receive [place] again on Saturday. She does not want any additional [place] at this time. Plan - Discharge Summary Discharge Rx Participant: No New Discharge Prescriptions: No Action Albuterol Inhaler (Mhu) [Ventolin Hfa Inhaler (Mhu)] 1 - 2 puff INHALATION RT-Q6H PRN PRN Reason: Shortness Of Breath HYDROcodone/APAP 5-325MG [[place] 5-325] 1 tab PO Q6H PRN PRN Reason: Pain Leuprolide Acetate [Lupron Depot] 11.25 mg IM Q90D Letrozole 2.5 mg PO DAILY ALPRAZolam [Xanax] 0.25 mg PO HS PRN PRN Reason: Anxiety Alendronate Sodium [Fosamax] 70 mg PO WEEKLY QUEtiapine [SEROquel] 25 mg PO HS Cyclobenzaprine [Flexeril] 5 mg PO TID PRN PRN Reason: Muscle Spasm Discharge Medication List Albuterol Inhaler (Mhu) [Ventolin Hfa Inhaler (Mhu)] 1 - 2 puff INHALATION RT- Q6H PRN 02/26/17 [History] HYDROcodone/APAP 5-325MG [[place] 5-325] 1 tab PO Q6H PRN 05/15/17 [History] Letrozole 2.5 mg PO DAILY 04/15/18 [History] Leuprolide Acetate [Lupron Depot] 11.25 mg IM Q90D 04/15/18 [History] ALPRAZolam [Xanax] 0.25 mg PO HS PRN 07/30/19 [History] Alendronate Sodium [Fosamax] 70 mg PO WEEKLY 12/04/19 [History] Cyclobenzaprine [Flexeril] 5 mg PO TID PRN 02/25/20 [History] QUEtiapine [SEROquel] 25 mg PO HS 02/25/20 [History] Follow up Appointment(s)/Referral(s): Pebbles Vo MD [STAFF PHYSICIAN] - 1 Week Activity/Diet/Wound Care/Special Instructions: Shower after 48 hours from surgery Teach drain care Do not drive if taking narcotic pain medication Keep Andrea wrap in place at all times Discharge Disposition: HOME SELF-CARE
--- NOTE | 2020-03-30 20:22 | P.PN ---
Progress Note - Text Progress Note Date: 03/30/20 - Chief Complaint Breast surgery Consultation: This is a pleasant 49-year-old patient was chronic stable medical conditions include COPD, GERD, osteoarthritis, lateral breast cancer 2018 treated with mastectomy and chemotherapy and radiation. Anxiety depression. Patient underwent surgery for bilateral chest wall redundant tissue after bilateral mastectomy. In the past patient's had implants in both the breasts. In the left from became infected and the both expanders removed. The surgeries to remove the redundant skin. Today-doing well. Sitting up. Pain control. Did tolerate some diet. No nausea vomiting. Review of systems: Was done for constitutional, cardiovascular, GI, pulmonary. relevant finding as above Current medications reviewed in today's electronic records Physical examination: VITAL SIGNS: 98.2, 98, 18, 101/66, 93% room air GENERAL: , laying in bed, comfortable EYES: Pupils equal. Conjunctiva normal. NECK: JVD not raised; masses not palpable. HEART: First and second heart sounds are normal; no edema. LUNGS: Respiratory rate increased, decreased breath sounds CHEST wall: Dressing across the chest wall. ABDOMEN: Soft, nontender, liver spleen not palpable, no masses palpable. PSYCH: Alert and oriented x3; mood and affect normal. Assessment: -Patient status post surgery for removal of redundant chest wall tissue forming previous bilateral mastectomy and after patient's expanders were removed -COPD in a current smoker -Chronic nicotine dependence patient cigarette smoker -GERD -Anxiety depression otherwise specified Plan: Stable. Getting better. Follow-up with PCP. Thank you Dr. Brown Cotto
[2020-04-05] MEDS ORDERED: Alendronate Sodium [Fosamax] 70 MG Tablet PO SCH (09:00)
== END 2020-03-30 12:15 | disposition home or self-care (01) ==
LOC: OR 12:55 → 6PED 17:58 → OR 03-30 04:05
PROVIDERS: ADMIT Surgery; ATTEND Surgery
DX: L98.7 Excessive and redundant skin and subcutaneous tissue (principal); L59.8 Other specified disorders of the skin and subcutaneous tissue related to radiation; G89.29 Other chronic pain; R07.89 Other chest pain; I89.0 Lymphedema, not elsewhere classified; C50.912 Malignant neoplasm of unspecified site of left female breast; C50.911 Malignant neoplasm of unspecified site of right female breast; J44.9 Chronic obstructive pulmonary disease, unspecified; F17.210 Nicotine dependence, cigarettes, uncomplicated; M19.90 Unspecified osteoarthritis, unspecified site; M81.0 Age-related osteoporosis without current pathological fracture; F41.9 Anxiety disorder, unspecified; F32.9 Major depressive disorder, single episode, unspecified; E66.9 Obesity, unspecified; K21.9 Gastro-esophageal reflux disease without esophagitis; K08.409 Partial loss of teeth, unspecified cause, unspecified class; Z90.13 Acquired absence of bilateral breasts and nipples; Z17.0 Estrogen receptor positive status [ER+]; Z79.811 Long term (current) use of aromatase inhibitors; Z79.899 Other long term (current) drug therapy; Z79.83 Long term (current) use of bisphosphonates; Z79.891 Long term (current) use of opiate analgesic; Z92.3 Personal history of irradiation; Z92.21 Personal history of antineoplastic chemotherapy; Z86.19 Personal history of other infectious and parasitic diseases; Z78.0 Asymptomatic menopausal state; Z98.890 Other specified postprocedural states; Z86.69 Personal history of other diseases of the nervous system and sense organs; Z74.09 Other reduced mobility; Z68.36 Body mass index [BMI] 36.0-36.9, adult; Z80.8 Family history of malignant neoplasm of other organs or systems; Z80.1 Family history of malignant neoplasm of trachea, bronchus and lung; Z80.3 Family history of malignant neoplasm of breast; Z83.438 Family history of other disorder of lipoprotein metabolism and other lipidemia
CPT/HCPCS: 94640; 88305; 85025; 15839; 14000; G0378; J2250; J1644 ×2; J1100; J2405 ×2; J3010; J1170 ×3; J2370; J2704

== ENCOUNTER → 2020-04-07 | Outpatient (CLI) | payer OTHER ==
[2020-04-07 15:55] VITALS: BP 124/86; PULSE 86; RESP 18; TEMP 97.6
--- NOTE | 2020-04-07 16:04 | P.PN ---
Progress Note - Text Progress Note Date: 04/07/20 right breast [id number]+Her2- stage IIA, Left breast TisNoMo stage 0 2016 She is status post bilateral mastectomy performed in April 2017. At that time she had a skin sparing mastectomy with bilateral tissue expanders placed. She developed an infection on the left side and had the expanders removed. She does not want reconstruction at this time. She did receive chemotherapy and Herceptin and had radiation therapy to the right chest wall. She is presently on Herceptin. She is post resection of redundant tissue following skin sparing mastectomy from bilateral chest wall. This was performed on . Postoperatively she is doing well. A V-Y advancement flap on the right was preformed. Physical exam: Incisions bilateral clean and dry RK left chest wall minimal output is serous Impression: 1. Patient status post bilateral mastectomy with revision of mastectomy incision sites for stage IIa right breast cancer and stage 0 left breast cancer 2. Patient on Herceptin Plan: 1. [place] removed 2. Sutures removed move 3. RK drain removed 4. Continue to follow with medical oncology 5. Follow up here in 6 months CC: Dr. Mcclelland
== END | disposition home or self-care (01) ==
LOC: WWCWWP 15:19
PROVIDERS: ATTEND Surgery
DX: Z53.9 Procedure and treatment not carried out, unspecified reason (principal)

== ENCOUNTER → 2020-04-08 | Outpatient (CLI) | payer OTHER ==
--- NOTE | 2020-04-08 11:07 | P.PN ---
Progress Note - Text Progress Note Date: 04/08/20 right breast [id number]+Her2- stage IIA, Left breast TisNoMo stage 0 2016 She is status post bilateral mastectomy performed in April 2017. At that time she had a skin sparing mastectomy with bilateral tissue expanders placed. She developed an infection on the left side and had the expanders removed. She does not want reconstruction at this time. She did receive chemotherapy and Herceptin and had radiation therapy to the right chest wall. She is presently on Herceptin. She is post resection of redundant tissue following skin sparing mastectomy from bilateral chest wall. This was performed on . Postoperatively she is doing well. A V-Y advancement flap on the right was preformed. She was seen yesterday regarding her first postoperative visit. The sutures and jamila were removed yesterday. This point she noticed some drainage at the right chest wall incision. She was asked to come in for evaluation. She has not had any fever or chills. Physical exam: Incisions left chest wall clean and dry, right V-Y advancement flap. Superior aspect v-y advancement flap is slightly seperated with some drainage; mild erythema at incision sites Impression: 1. Patient status post bilateral mastectomy with revision of mastectomy incision sites for stage IIA right breast cancer and stage 0 left breast cancer 2. Patient on Herceptin 3. Opening of incision V-Y advancement flap 4. Left chest wall clean and dry well-healed 4. No evidence of infection Plan: 1. Suture line right chest wall reinforced 2. Prescription given for Keflex 3. Follow-up one week up 1 week 4. Continue to follow with medical oncology Patient's Steri-Strips were removed from the right chest wall. The superior limb of the V-Y advancement flap is slightly open. This was prepped using Betadine and reinforced with several interrupted 3-0 nylon sutures. The patient tolerated this without difficulty. CC: Dr. Mcclelland
[2020-04-08 12:43] VITALS: BP 138/90; PULSE 82; RESP 18; TEMP 97.6
== END | disposition home or self-care (01) ==
LOC: WWCWWP 10:49
PROVIDERS: ATTEND Surgery
DX: Z53.9 Procedure and treatment not carried out, unspecified reason (principal)

== ENCOUNTER → 2020-04-15 | Outpatient (CLI) | payer OTHER ==
[2020-04-15 15:46] VITALS: BP 139/77; PULSE 86; RESP 18; TEMP 97.5
--- NOTE | 2020-04-15 16:06 | P.PN ---
Progress Note - Text right breast [id number]+Pr+Her2- stage IIA, Left breast TisNoMo stage 0 2016 She is status post bilateral mastectomy performed in April 2017. At that time she had a skin sparing mastectomy with bilateral tissue expanders placed. She developed an infection on the left side and had the expanders removed. She does not want reconstruction at this time. She did receive chemotherapy and Herceptin and had radiation therapy to the right chest wall. She is presently on Herceptin. She is status post resection of redundant tissue following skin sparing mastectomy from bilateral chest wall. This was performed on . Postoperatively she is doing well. A V-Y advancement flap on the right was preformed. Sutures and jamila were removed last week. The patient after removal of the sutures in the right V-Y advancement flap area had some drainage from this site and some separation of the incision. Additional sutures were placed last week. She comes for evaluation of this area. This area seems to be healing well and the superior-lateral aspect there is a mild amount of separation approximately. The other areas of the incision seemed to be healing well. There is no evidence of any infection. She does have some mild erythema. She has not had any fever or chills. Physical exam: Incisions left chest wall clean and dry, right V-Y advancement flap. Superior aspect v-y advancement flap is slightly seperated with some drainage; mild erythema at incision sites Impression/Plan: 1. Patient status post bilateral mastectomy with revision of mastectomy incision sites for stage IIA right breast cancer and stage 0 left breast cancer 2. Patient on Herceptin 3. Opening of incision V-Y advancement flap healing 4. Left chest wall clean and dry well-healed 4. No evidence of infection 5. Patient given prescription for Keflex for 1 week 6. Patient will follow up in 1 week CC: Krystin
== END | disposition home or self-care (01) ==
LOC: WWCWWP 15:19
PROVIDERS: ATTEND Surgery
DX: Z53.9 Procedure and treatment not carried out, unspecified reason (principal)

== ENCOUNTER → 2020-04-18 | Outpatient (CLI) | payer OTHER ==
--- NOTE | 2020-04-18 14:20 | CT ---
EXAMINATION TYPE: CT chest w con DATE OF EXAM: 04/18/2020 COMPARISON: Chest CT March 23, 2019 HISTORY: difficulty breathing and cough. CT DLP: 696 mGycm. Automated Exposure Control for Dose Reduction was Utilized. TECHNIQUE: CT scan of the thorax is performed following with IV Contrast, patient injected with 100 mL of Isovue 300. FINDINGS: LUNGS: Background Mild to moderate underlying emphysematous change greatest in the upper lungs is red emonstrated. No pleural effusion or pneumothorax. No suspicious nodules or masses. MEDIASTINUM: There are no new greater than 1 cm hilar or mediastinal lymph nodes. Stable prominent bu t subcentimeter right tracheobronchial lymph node axial image 23. No cardiomegaly or pericardial eff usion is seen. OTHER: Subcentimeter low dense lesion in the liver axial image 56 is presumed benign stable from prio r. Persistent thin-walled fluid collection in the deep aspect right breast or chest wall axial image 30 continues to show interval enlargement at least in AP diameter from prior studies. There is no thi n-walled focal fluid collection in the left breast larger in size versus right breast on current stud y. Has patient undergone interval cosmetic procedure? IMPRESSION: Mild/moderate emphysematous change without acute pulmonary process. New focal fluid colle ction left chest wall at site of mastectomy of uncertain etiology. Slightly larger thin-walled fluid collection right chest wall at site of prior mastectomy. These are nonspecific. Correlate clinically.
== END | disposition home or self-care (01) ==
LOC: RADCTMAIN 13:32
PROVIDERS: ATTEND Internal Medicine Hematology & Oncology
DX: J43.9 Emphysema, unspecified (principal); J94.8 Other specified pleural conditions; C50.411 Malignant neoplasm of upper-outer quadrant of right female breast
CPT/HCPCS: 71260; Q9967

== ENCOUNTER → 2020-04-21 | Outpatient (CLI) | payer OTHER ==
[2020-04-21 15:56] VITALS: BP 127/81; PULSE 89; RESP 18; TEMP 98.1
--- NOTE | 2020-04-21 16:23 | P.PN ---
Progress Note - Text Progress Note Date: 04/21/20 right breast [id number]+Pr+Her2- stage IIA, Left breast TisNoMo stage 0 2016 She is status post bilateral mastectomy performed in April 2017. At that time she had a skin sparing mastectomy with bilateral tissue expanders placed. She developed an infection on the left side and had the expanders removed. She does not want reconstruction at this time. She did receive chemotherapy and Herceptin and had radiation therapy to the right chest wall. She is presently on Herceptin. She is status post resection of redundant tissue following skin sparing mastectomy from bilateral chest wall. This was performed on . Postoperatively she is doing well. A V-Y advancement flap on the right was preformed. The patient after removal of the sutures in the right V-Y advancement flap area had some drainage from this site and some separation of the incision. The patient continues to have some mild drainage from 1 side of the advancement flap Physical exam: Incisions left chest wall clean and dry, right V-Y advancement flap. Superior aspect v-y advancement flap is approximately 2 mm x 2 mm in the superior medial aspect of they portion of the advancement flap. The incision is closed. This area was debrided and packed. Sutures from the inferior aspect of the incision were removed. Impression/Plan: 1. Patient status post bilateral mastectomy with revision of mastectomy incision sites for stage IIA right breast cancer and stage 0 left breast cancer 2. Patient on Herceptin 3. Opening of incision V-Y advancement flap healing 4. Left chest wall clean and dry well-healed 4. No evidence of infection 5. Slight opening superior medial aspect of advancement flap 6. Patient will follow up in 1 week 7. wound packed to continue packing at home CC: Krystin
== END | disposition home or self-care (01) ==
LOC: WWCWWP 15:06
PROVIDERS: ATTEND Surgery
DX: Z53.9 Procedure and treatment not carried out, unspecified reason (principal)

== ENCOUNTER → 2020-04-29 | Outpatient (CLI) | payer OTHER ==
[2020-04-29 13:43] VITALS: BP 137/91; PULSE 87; RESP 20; TEMP 98.4
--- NOTE | 2020-04-29 13:51 | P.PN ---
Progress Note - Text Progress Note Date: 04/29/20 right breast [id number]+Pr+Her2- stage IIA, Left breast TisNoMo stage 0 2016 She is status post bilateral mastectomy performed in April 2017. At that time she had a skin sparing mastectomy with bilateral tissue expanders placed. She developed an infection on the left side and had the expanders removed. She does not want reconstruction at this time. She did receive chemotherapy and Herceptin and had radiation therapy to the right chest wall. She is presently on Herceptin. She is status post resection of redundant tissue following skin sparing mastectomy from bilateral chest wall. This was performed on . Postoperatively she is doing well. A V-Y advancement flap on the right was preformed. The patient after removal of the sutures in the right V-Y advancement flap area had some drainage from this site and some separation of the incision. The patient continues to have some mild drainage from 1 side of the advancement flap; Physical exam: Incisions left chest wall clean and dry, right V-Y advancement flap. Superior aspect v-y advancement flap is approximately 2 cm wide, 1cm wide and 8mm deep. Superior medial aspect of the portion of the advancement flap. The inferior portion of the incision is closed. This area was debrided and packed. left breast incision: minimal area of granulation tissue 8 mm lateral aspect of incision Impression/Plan: 1. Patient status post bilateral mastectomy with revision of mastectomy incision sites for stage IIA right breast cancer and stage 0 left breast cancer 2. Patient on Herceptin 3. Opening of incision V-Y advancement flap healing 4. Left chest wall clean and dry well-healed 4. No evidence of infection 5. Slight opening superior medial aspect of advancement flap 6. Patient will follow up in 2 weeks 7. granulation tissue lateral aspect of the left chest wall incision
== END | disposition home or self-care (01) ==
LOC: WWCWWP 13:05
PROVIDERS: ATTEND Surgery
DX: Z53.9 Procedure and treatment not carried out, unspecified reason (principal)

== ENCOUNTER → 2020-05-13 | Outpatient (CLI) | payer OTHER ==
[2020-05-13 12:12] VITALS: BP 124/85; PULSE 80; RESP 20; TEMP 98.8
--- NOTE | 2020-05-13 12:29 | P.PN ---
Progress Note - Text Progress Note Date: 05/13/20 right breast [id number]+Pr+Her2- stage IIA, Left breast TisNoMo stage 0 2016 She is status post bilateral mastectomy performed in April 2017. At that time she had a skin sparing mastectomy with bilateral tissue expanders placed. She developed an infection on the left side and had the expanders removed. She does not want reconstruction at this time. She did receive chemotherapy and Herceptin and had radiation therapy to the right chest wall. She is presently on Letrazole. She is status post resection of redundant tissue following skin sparing mastectomy from bilateral chest wall. This was performed on . Postoperatively she is doing well. A V-Y advancement flap on the right was preformed. The patient after removal of the sutures in the right V-Y advancement flap area had some drainage from this site and some separation of the incision. The patient continues to have some mild drainage from 1 side of the advancement flap; Physical exam: Incisions left chest wall clean and dry, right V-Y advancement flap. Superior aspect v-y advancement flap is approximately 2 cm wide, 11/2cm ta;; and 3cm deep. Superior medial aspect of the portion of the advancement flap. This is granulating well and healing without any evidence of infection The inferior portion of the incision is closed. This area was debrided and packed. left breast incision clean and dry healing well Impression/Plan: 1. Patient status post bilateral mastectomy with revision of mastectomy incision sites for stage IIA right breast cancer and stage 0 left breast cancer 2. Patient on letrazole 3. Opening of incision V-Y advancement flap healing 4. Left chest wall clean and dry well-healed 4. No evidence of infection 5. opening superior medial aspect of advancement flap 6. Patient will follow up in 6 weeks 7. granulation tissue lateral aspect of the left chest wall incision healing well CC: DR. Mcclelland
== END | disposition home or self-care (01) ==
LOC: WWCWWP 11:43
PROVIDERS: ATTEND Surgery
DX: Z53.9 Procedure and treatment not carried out, unspecified reason (principal)

== ENCOUNTER → 2020-05-18 | Outpatient (CLI) | payer OTHER ==
[~2020-05-18] MED LIST changes: -DEXAMETHASONE SOD PHOSPHATE 10 MG/ML 1 ML VIAL IV ONE; -HEPARIN SODIUM,PORCINE 5,000 UNIT/ML 1 ML VIAL SQ ONE; -HYDROmorphone 0.5 MG/0.5 ML SYRINGE IVP PRN; +LEUPROLIDE ACET 11.25MG SYRGKIT IM NR; -LIDOCAINE 1% (10MG/ML) FOR IV START INTRADERMA PRN; -MIDAZOLAM 2 MG/2 ML VIAL IV PRN; -ONDANSETRON 4 MG/2 ML VIAL IVP ONE; -Pre Op ABX Message 1 EACH MISC MISCELLANE ONE
[2020-05-18 14:03] VITALS: BP 140/85; PULSE 85; RESP 16; TEMP 97.8
== END | disposition home or self-care (01) ==
LOC: PROCWHC3 13:49
PROVIDERS: ATTEND Internal Medicine Hematology & Oncology
DX: Z51.11 Encounter for antineoplastic chemotherapy (principal); C50.411 Malignant neoplasm of upper-outer quadrant of right female breast
CPT/HCPCS: 96402; J1950

== ENCOUNTER → 2020-06-23 | Outpatient (CLI) | payer OTHER ==
[2020-06-23 13:07] VITALS: BP 135/85; PULSE 78; RESP 18; TEMP 97.6
--- NOTE | 2020-06-23 13:17 | P.PN ---
Progress Note - Text Progress Note Date: 06/23/20 Bobbi is status post bilateral mastectomy performed in April 2017. At that time she had a skin sparing mastectomy with bilateral tissue expanders placed. She developed an infection on the left side and had the expanders removed. She does not want reconstruction at this time. She did receive chemotherapy and Herceptin and had radiation therapy to the right chest wall. She is presently on Letrazole. She is status post resection of redundant tissue following skin sparing mastectomy from bilateral chest wall. This was performed on . Postoperatively she is doing well. A V-Y advancement flap on the right was preformed. The patient after removal of the sutures in the right V-Y advancement flap area had some drainage from this site and some separation of the incision. The patient's incisions are both well-healed at this time. Physical exam: Lungs: Bilateral wheezing at the bases Heart: Regular rate and rhythm Incisions bilateral healed well at this time with no evidence of any infection Impression/Plan: 1. Patient status post bilateral mastectomy with revision of mastectomy incision sites for stage IIA right breast cancer and stage 0 left breast cancer 2. Patient on letrazole 3. Opening of incision V-Y advancement flap was elevated at this time 4. Left chest wall clean and dry well-healed 4. No evidence of infection 5. Follow-up in 6 months CC: DR. Mcclelland encounter 10 minutes
== END | disposition home or self-care (01) ==
LOC: WWCWWP 12:43
PROVIDERS: ATTEND Surgery
DX: Z53.9 Procedure and treatment not carried out, unspecified reason (principal)

== ENCOUNTER → 2020-09-02 | Outpatient (CLI) | payer OTHER ==
[~2020-09-02] MED LIST changes: -LEUPROLIDE ACET 11.25MG SYRGKIT IM NR; +LEUPROLIDE ACET 11.25MG SYRGKIT IM ONE
[2020-09-02 13:04] VITALS: BP 125/87; PULSE 81; TEMP 97.5
== END ==
LOC: PROCWHC3 12:31
PROVIDERS: ATTEND Internal Medicine Hematology & Oncology
DX: C50.411 Malignant neoplasm of upper-outer quadrant of right female breast (principal)
CPT/HCPCS: 96402; J1950

== ENCOUNTER → 2020-12-22 | Outpatient (CLI) | payer OTHER ==
[~2020-12-22] MED LIST changes: +LEUPROLIDE ACET 11.25MG SYRGKIT IM NR; -LEUPROLIDE ACET 11.25MG SYRGKIT IM ONE
[2020-12-22 13:51] VITALS: BP 137/90; PULSE 75; RESP 16; TEMP 97.9
== END | disposition home or self-care (01) ==
LOC: PROCWHC3 13:25
PROVIDERS: ATTEND Internal Medicine Hematology & Oncology
DX: Z51.11 Encounter for antineoplastic chemotherapy (principal); C50.411 Malignant neoplasm of upper-outer quadrant of right female breast
CPT/HCPCS: 96402; J1950; 96411

== ENCOUNTER → 2021-08-23 | Outpatient (CLI) | payer OTHER ==
[2021-08-23 13:06] VITALS: BP 144/87; PULSE 60; RESP 16; TEMP 97.9
== END | disposition home or self-care (01) ==
LOC: PROCWHC3 12:54
PROVIDERS: ATTEND Internal Medicine Hematology & Oncology
DX: C50.411 Malignant neoplasm of upper-outer quadrant of right female breast (principal)
CPT/HCPCS: 96402; J1950; 96372

== ENCOUNTER → 2023-04-01 | Outpatient (CLI) | payer OTHER ==
--- NOTE | 2023-04-01 13:28 | CTL ---
EXAMINATION TYPE: CT Low Dose Lung DATE OF EXAM ORDERED: 04/01/2023 HISTORY: F17.210 nicotine dependance. Lung cancer screening. Current smoker, [address] DLP: 73.[address] CTDI: 210 mGy Automated exposure control for dose reduction was used. SCREENING VISIT: First screening visit COMPARISON: CT chest 04/18/2020, CTA chest 03/23/2019 TECHNIQUE: Low dose computed tomography scan was performed through the chest at 1 mm thick sections a nd reconstructed images in multiple planes at 1 mm and [address] DIAGNOSTIC QUALITY: Satisfactory FINDINGS: LUNG NODULES: Stable left lower lobe 3 mm pulmonary nodule (series 5, image 129). No new or enlarging pulmonary nodules. LUNGS: COPD: Severity: Mild Fibrosis: Severity: None Lymph nodes: None Other findings: None RIGHT PLEURAL SPACE: Effusion: None Calcification: None Thickening: None Pneumothorax: None LEFT PLEURAL SPACE: Effusion: None Calcification: None Thickening: None Pneumothorax: None HEART: Heart Size: Normal Coronary Calcification: None Pericardial Effusion: None OTHER FINDINGS: Upper abdomen: None Bony thorax: No acute osseous abnormality. Stable anterior wedge compression deformity of the T12 syl tebral body. Supraclavicular region: None Other: Postsurgical changes from bilateral mastectomy with slightly decreased organized fluid collect ion within the right chest wall measuring 5.7 x 1.5 cm, previously measured 7.3 x 1[address] in 202 0. Most consistent with a seroma. Posterior left upper chest superficial 1.4 cm lesion likely represe nting a sebaceous cyst. IMPRESSION: 1. Stable 3 mm left lower lobe pulmonary nodule dating back to 2019 exam and considered benign. No ne w or enlarging pulmonary nodules. 2. Mild COPD changes. 3. Postsurgical changes from bilateral mastectomy with slightly decreased organized fluid collection within the right chest wall most likely representing a seroma. CT LUNG RAD AND CT CHEST RECOMMENDATION: Lung-Rad 2 Benign Appearance or Behavior: Continue annual sc reening with LDCT in 12 months.
== END | disposition home or self-care (01) ==
LOC: RADCTMAIN 12:23
PROVIDERS: ATTEND Internal Medicine Hematology & Oncology
DX: Z12.2 Encounter for screening for malignant neoplasm of respiratory organs (principal); F17.210 Nicotine dependence, cigarettes, uncomplicated; J44.9 Chronic obstructive pulmonary disease, unspecified; R91.1 Solitary pulmonary nodule; Z90.13 Acquired absence of bilateral breasts and nipples
CPT/HCPCS: 71271